=== PATIENT | female | born 1995 | race Caucasian/White ===

== ENCOUNTER 2022-02-26 18:28 | Inpatient (IN) ==
[~2022-02-26 18:28] MED LIST: SUCCINYLCHOLINE CHLORIDE 20 MG/ML 10 ML VIAL IV ONE
[2022-02-26] MEDS ORDERED: LORazepam 1 MG/1 ML SYR IV STA ×3 (18:40→20:19)
[2022-02-26] MEDS ORDERED: SODIUM CHLORIDE 0.9% 1000ML 1,000 ML IV SCH ×2 (18:45→19:15)
[2022-02-26] MEDS ORDERED: SODIUM BICARB 8.4% INJ 50 MEQ/50 ML SYR IV STA (18:53)
--- NOTE | 2022-02-26 18:53 | Emergency Department Note ---
History of Present Illness General Chief complaint: Overdose (Intentional) Stated complaint: OVERDOSE Time Seen by Provider: 02/26/22 18:40 History of Present Illness 18-year-old female presents to the ED unresponsive by EMS. The patient had reportedly consumed approximate 14.5 g of Wellbutrin at around 2 PM today. She did leave a suicide note that stated this. The patient initially was found by police altered. She was talking to police but shortly after they arrived, the patient became unresponsive. The patient did have some seizure-like activity for EMS. They provided 5 mg of IV Versed. The patient was unresponsive upon her arrival and was not able to write any additional history. All history was obtained from EMS. The patient was hypoxic on 15 L of oxygen by EMS. They were bagging her and put nasal airway in. Her breathing improved with this and her oxygen saturation was 98% for short while and upon arrival it was 89% as her breathing was diminished. They were bagging her. They stated that there was nobody around her when she was found. Home Medications Medication Instructions Recorded Confirmed Type bupropion HCl 150 mg 24 hr tablet, 150 mg PO DAILY 02/26/22 02/26/22 History extended release bupropion HCl 300 mg 24 hr tablet, 300 mg PO DAILY 02/26/22 02/26/22 History extended release lamotrigine 100 mg tablet 200 mg PO DAILY 02/26/22 02/26/22 History lamotrigine 150 mg tablet 150 mg PO DAILY 02/26/22 02/26/22 History lurasidone 20 mg tablet (Latuda) 20 mg PO DAILY 02/26/22 02/26/22 History testosterone 50 mg/5 gram (1 %) 0 mg topical UD 02/26/22 02/26/22 History transdermal gel Past Med/Surg History Social History Smoking Status: Unknown if ever smoked Review of Systems A total of 10 systems reviewed and were otherwise negative Physical Exam Vital Signs Vital Signs - 24 hr 02/26/22 18:38 02/26/22 18:51 02/26/22 19:05 Temperature 38.7 C H Temperature Source Rectal Pulse Rate 120 H 124 H Pulse Rate from SpO2 Sensor Respiratory Rate 20 24 Blood Pressure 190/157 H 87/41 L Blood Pressure Mean 168 56 Pulse Oximetry 97 98 Oxygen Delivery Method Mechanical Vent Mechanical Vent Fraction of Inspired Oxygen 100 Sepsis New/Unexplained Change in Mental Status Yes Sepsis Action Taken by Nursing Physician Notified End-Tidal CO2 62 02/26/22 19:00 02/26/22 19:10 02/26/22 19:15 Temperature Temperature Source Pulse Rate 121 H 122 H 121 H Pulse Rate from SpO2 Sensor 123 H 121 H Respiratory Rate 25 H 25 H 25 H Blood Pressure 104/41 L 99/41 L Blood Pressure Mean 62 60 Pulse Oximetry 98 99 97 Oxygen Delivery Method Mechanical Vent Mechanical Vent Fraction of Inspired Oxygen Sepsis New/Unexplained Change in Mental Status Sepsis Action Taken by Nursing End-Tidal CO2 55 44 44 02/26/22 19:20 02/26/22 19:20 02/26/22 19:35 Temperature Temperature Source Pulse Rate 120 H 114 H Pulse Rate from SpO2 Sensor Respiratory Rate 25 H 25 H Blood Pressure 98/42 L 89/46 L Blood Pressure Mean 60 60 Pulse Oximetry 98 Oxygen Delivery Method Mechanical Vent Fraction of Inspired Oxygen Sepsis New/Unexplained Change in Mental Status Sepsis Action Taken by Nursing End-Tidal CO2 41 32 02/26/22 18:40 02/26/22 19:45 02/26/22 20:00 Temperature Temperature Source Pulse Rate 86 112 H 119 H Pulse Rate from SpO2 Sensor 114 H Respiratory Rate 25 H 25 H 25 H Blood Pressure 102/44 L 97/42 L Blood Pressure Mean 63 60 Pulse Oximetry 97 92 Oxygen Delivery Method Mechanical Vent Fraction of Inspired Oxygen 70 Sepsis New/Unexplained Change in Mental Status Sepsis Action Taken by Nursing End-Tidal CO2 57 33 33 02/26/22 20:17 Temperature Temperature Source Pulse Rate 114 H Pulse Rate from SpO2 Sensor 114 H Respiratory Rate 24 Blood Pressure 108/57 L Blood Pressure Mean 74 Pulse Oximetry 96 Oxygen Delivery Method Mechanical Vent Fraction of Inspired Oxygen Sepsis New/Unexplained Change in Mental Status Sepsis Action Taken by Nursing End-Tidal CO2 CONSTITUTIONAL/VITAL SIGNS: Reviewed / noted above. GENERAL: Obese. Agonal spontaneous breathing and shallow. Being bagged by EMS. INTEGUMENTARY: Warm, dry, and Eros. HEAD: Normocephalic. EYES: without scleral icterus or trauma. ENT/OROPHARYNX: clear and moist. RESPIRATORY: Diminished to auscultation bilaterally. Agonal breathing. CARDIOVASCULAR: Regular rate and rhythm. GI/ABDOMEN: Soft and nontender. No organomegaly or pulsatile mass. EXTREMITIES: Warm and well perfused. NEUROLOGICAL: Unresponsive. Not responding to verbal or painful stimulus. PSYCHIATRIC: normal affect. MUSCULOSKELETAL: Normally developed. No muscle tone. No trauma. TRIAGE NURSING DOCUMENTATION REVIEWED. Procedures ABG Interpretation ABG Interpretation 1: ABG Results: 6.8 /. This was shortly after intubation. Ventilation rate was increased to 25. PEEP of 5. Volume of 500. 70% oxygen. Appears to be a respiratory acidosis. Central Line Placement Right IJ: Time Out Performed: Yes Patient Placed on Monitor/Pulse Ox: Yes MD Prep: mask, gown and gloves Central Line Prep: Chlorhexidine scrub Ultrasound Used for Placement: Yes Central Line Lumen Inserted: triple Post Procedure: sutured in place, good blood return, all ports aspirated, flushed, capped and sterile dressing applied Post Procedure X-Ray: tip of catheter in good position and no pneumothorax seen Patient Tolerated Procedure: well and no complications Complications: none Intubation Time out performed: Yes sedative: Etomidate Mg Given: 20 paralytic: Succinylcholine Mg Given: 100 Laryngoscope: fiber optic video scope ET Tube Size: 7 ET Tube Uncuffed: No Tube Secured Depth (cm): 24 Tube Secured Location: teeth Tube Placement Confirmation: visualized tube passing through cords, equal breath sounds bilaterally, no breath sounds over epigastrium and confirmation by capnometry Patient Tolerated Procedure: well and no complications Intubation Complications: none Course Administered Medications Dextrose/Sodium Chloride (D5w And Nss) 1,000 mls @ 250 mls/hr IV .Q4H [facility] Stop: 03/28/22 19:44 Last Admin: 02/26/22 19:46 Dose: 100 mls/hr Documented By: RONI Discontinued Medications Sodium Chloride (Nss 1000ml) 1,000 mls @ 999 mls/hr IV .Q1H1M TONI Stop: 02/26/22 19:45 Last Infusion: 02/26/22 19:31 Dose: 0 mls/hr Documented By: Admin: 02/26/22 18:53 Dose: 999 mls/hr Documented By: MIKE Sodium Chloride (Nss 1000ml) 1,000 mls @ 999 mls/hr IV .Q1H1M TONI Stop: 02/26/22 20:15 Last Infusion: 02/26/22 19:31 Dose: 0 mls/hr Documented By: Admin: 02/26/22 19:03 Dose: 999 mls/hr Documented By: RONI Cefepime HCl (Maxipime) 2,000 mg in 20 mls @ 5 mls/min IV NOW STA; Protocol Stop: 02/26/22 19:18 Last Admin: 02/26/22 19:20 Dose: 5 mls/min Documented By: RONI Sodium Chloride (Nss 1000ml) 1,000 mls @ 999 mls/hr IV .Q1H1M ONE Stop: 02/26/22 20:16 Last Infusion: 02/26/22 20:35 Dose: 0 mls/hr Documented By: Admin: 02/26/22 19:20 Dose: 999 mls/hr Documented By: RONI Levetiracetam 2,000 mg/ Sodium (Chloride) 270 mls @ 999 mls/hr IV NOW STA Stop: 02/26/22 20:25 Last Admin: 02/26/22 20:45 Dose: 999 mls/hr Documented By: RONI Acetaminophen (Ofirmev) 1,000 mg in 100 mls @ 400 mls/hr IV NOW STA Stop: 02/26/22 20:54 Last Admin: 02/26/22 20:52 Dose: 400 mls/hr Documented By: RONI Lorazepam (Lorazepam 1 Mg/1 Ml Syr) 2 mg IV NOW STA; Protocol Stop: 02/26/22 18:41 Last Admin: 02/26/22 19:00 Dose: 2 mg Documented By: RONI Lorazepam (Lorazepam 1 Mg/1 Ml Syr) 2 mg IV NOW STA; Protocol Stop: 02/26/22 20:10 Last Admin: 02/26/22 20:37 Dose: 2 mg Documented By: RONI Lorazepam (Lorazepam 1 Mg/1 Ml Syr) 2 mg IV NOW STA; Protocol Stop: 02/26/22 20:20 Last Admin: 02/26/22 20:44 Dose: Not Given Documented By: RONI Norepinephrine Bitartrate (Norepinephrine/D5w 4 Mg/250 Ml) Confirm Administered Dose 4 mg IV .STK-MED ONE Stop: 02/26/22 19:38 Last Admin: 02/26/22 20:18 Dose: 4 mg Documented By: RONI Sodium Bicarbonate (Sodium Bicarb 8.4% Inj 50 Meq/50 Ml Syr) 100 meq IV NOW STA Stop: 02/26/22 18:54 Last Admin: 02/26/22 19:02 Dose: 100 meq Documented By: RONI Critical Care Time Critical Care Time: Yes Total Critical Care Time: 90 I have personally spent 90 minutes of critical care time in the direct alisa gement of this patient. This includes bedside care, interpretation of diagnostic studies, and testing, discussion with consultants, patient, and family members, and other required patient management activities. This 90 minutes is in excess of all separately billable procedures. Medical Decision Making Differential Diagnosis Differential includes acute cardiac dysrhythmia, AL, CVA, TIA, dehydration, anemia, electrolyte disturbance, seizure, trauma, intracranial bleeding, acute vascular catastrophe, thoracic aortic dissection, PE, abdominal aortic aneurysm rupture, infection, hypoglycemia, overdose, trauma, seizure. Medical Records Attestation: I reviewed the patient's medical records. Home Medications Current Medication List: was personally reviewed by me Laboratory Data Attestation: I reviewed the patient's lab results. Result diagrams: 02/26/22 18:39 02/26/22 18:39 Lab Results 02/26/22 02/26/22 02/26/22 Range/Units 18:39 18:39 18:39 WBC (4.8-10.8) K/ul RBC (3.93-5.22) M/uL Hgb (12.0-16.0) g/dl Hct (34.1-44.9) % MCV (80.0-100.0) fL MCH (25.0-34.0) pg MCHC (32.0-36.0) g/dL RDW Std Deviation (36.4-46.3) fL RDW Coeff of Ruth Ann (11.5-14.5) % Plt Count (130-400) K/uL MPV (9.4-12.3) fL Immature Gran % (Auto) % Neut % (Auto) % Lymph % (Auto) % [place] % (Auto) % Eos % (Auto) % Baso % (Auto) % Neut # (Auto) (1.4-6.5) K/uL Lymph # (Auto) (1.2-3.4) K/uL [place] # (Auto) (0.24-0.82) K/uL Eos # (Auto) (0-0.50) K/uL Baso # (Auto) (0-0.2) K/uL Immature Gran # (Auto) (0.00-0.02) K/uL PT 10.8 (9.0-12.0) Seconds INR 1.0 (0.9-1.1) Sodium 141 (136-145) mmol/L Potassium 4.6 (3.5-5.1) mmol/L Chloride 103 (98-107) mmol/L Carbon Dioxide 17 L (21-32) mmol/L Anion Gap 21 H (3-11) BUN 16 (6-23) mg/dl Creatinine 1.48 H (0.6-1.2) mg/dl Est Cr Clr Drug Dosing Not Reportable Est GFR ( Amer) 55.3 ml/min Est GFR (Non-Af Amer) 47.7 ml/min BUN/Creatinine Ratio 10.8 (10-20) Glucose 69 L (70-99(Fasting)) mg/dl POC Glucose (70-99) mg/dl Lactate (0.4-2.0) mmol/L Calcium 9.9 (8.5-10.1) mg/dl Magnesium 3.2 H (1.7-2.4) mg/dl Total Bilirubin 0.3 (0.2-1.0) mg/dl AST 13 (13-39) U/L ALT 13 (7-52) U/L Alkaline Phosphatase 86 (34-104) U/L Total Creatine Kinase 102 (26-192) U/L Troponin I High Sens 4.7 (0-14) pg/ml Total Protein 7.6 (6.0-8.3) gm/dl Albumin 4.5 (3.4-5.0) gm/dl Globulin 3.1 (2.5-4.0) gm/dl Albumin/Globulin Ratio 1.5 (0.9-2) Lipase 35 (11-82) U/L TSH 15.260 H (0.300-4.500) uIu/ml Free T4 0.66 (0.61-1.60) ng/dl Urine Color Urine Appearance (Clear) Urine pH (4.5-7.5) Ur Specific Andrew (1.000-1.030) Urine Protein (Negative) Urine Glucose (UA) (Negative) Urine Ketones (Negative) Urine Blood (Negative) Urine Nitrite (Negative) Urine Bilirubin (Negative) Urine Urobilinogen (Negative) Ur Leukocyte Esterase (Negative) Urine WBC (Auto) (0-5) /hpf Urine RBC (Auto) (0-4) /hpf U Hyaline Cast (Auto) (0-5) /lpf U Epithel Cells (Auto) (0-5) /lpf Urine Bacteria (Auto) (Negative) Ur Renal Epithelial Cell Urine Test (Negative) Salicylates (3.0-30) mg/dl Urine Opiates Screen (Neg) Ur Methadone, Qual (Neg) Acetaminophen (10-30) ug/ml Urine Barbiturates (Neg) Ur Phencyclidine (PCP) (Neg) U Amphetamin/Meth Scrn (Neg) MDMA (Ecstasy) Screen (Neg) U Benzodiazepines Scrn (Neg) Ur Cocaine Metabolite (Neg) U Marijuana (THC) Screen (Neg) Ethyl Alcohol mg/dL (<10.0) mg/dl Adenovirus (PCR) (NotDetected) B. pertussis DNA (PCR) (NotDetected) B.parapertussis DNA PCR (NotDetected) C. pneumoniae DNA (PCR) (NotDetected) Coronavirus OC43 (PCR) (NotDetected) Coronavirus HKU1 (PCR) (NotDetected) Coronavirus 229E (PCR) (NotDetected) SARS-CoV-2 (PCR) (NotDetected) Coronavirus NL63 (PCR) (NotDetected) Human Metapneumovir PCR (NotDetected) Influenza Type A (PCR) (NotDetected) Influenza Type B (PCR) (NotDetected) M. pneumoniae (PCR) (NotDetected) Parainfluenza 1 (PCR) (NotDetected) Parainfluenza 2 (PCR) (NotDetected) Parainfluenza 3 (PCR) (NotDetected) Parainfluenza 4 (PCR) (NotDetected) RSV (PCR) (NotDetected) Entero/Rhino (PCR) (NotDetected) SARS-CoV-2, RNA, NAAT (NEGATIVE) 02/26/22 02/26/22 02/26/22 Range/Units 18:39 18:39 18:39 WBC 29.20 H (4.8-10.8) K/ul RBC 4.22 (3.93-5.22) M/uL Hgb 13.5 (12.0-16.0) g/dl Hct 43.0 (34.1-44.9) % MCV 101.9 H (80.0-100.0) fL MCH 32.0 (25.0-34.0) pg MCHC 31.4 L (32.0-36.0) g/dL RDW Std Deviation 45.7 (36.4-46.3) fL RDW Coeff of Ruth Ann 12.1 (11.5-14.5) % Plt Count 377 (130-400) K/uL MPV 10.1 (9.4-12.3) fL Immature Gran % (Auto) 7.1 % Neut % (Auto) 50.1 % Lymph % (Auto) 35.1 % [place] % (Auto) 6.6 % Eos % (Auto) 0.6 % Baso % (Auto) 0.5 % Neut # (Auto) 14.62 H (1.4-6.5) K/uL Lymph # (Auto) 10.25 H (1.2-3.4) K/uL [place] # (Auto) 1.94 H (0.24-0.82) K/uL Eos # (Auto) 0.17 (0-0.50) K/uL Baso # (Auto) 0.14 (0-0.2) K/uL Immature Gran # (Auto) 2.08 H (0.00-0.02) K/uL PT (9.0-12.0) Seconds INR (0.9-1.1) Sodium (136-145) mmol/L Potassium (3.5-5.1) mmol/L Chloride (98-107) mmol/L Carbon Dioxide (21-32) mmol/L Anion Gap (3-11) BUN (6-23) mg/dl Creatinine (0.6-1.2) mg/dl Est Cr Clr Drug Dosing Est GFR ( Amer) ml/min Est GFR (Non-Af Amer) ml/min BUN/Creatinine Ratio (10-20) Glucose (70-99(Fasting)) mg/dl POC Glucose (70-99) mg/dl Lactate (0.4-2.0) mmol/L Calcium (8.5-10.1) mg/dl Magnesium (1.7-2.4) mg/dl Total Bilirubin (0.2-1.0) mg/dl AST (13-39) U/L ALT (7-52) U/L Alkaline Phosphatase (34-104) U/L Total Creatine Kinase (26-192) U/L Troponin I High Sens (0-14) pg/ml Total Protein (6.0-8.3) gm/dl Albumin (3.4-5.0) gm/dl Globulin (2.5-4.0) gm/dl Albumin/Globulin Ratio (0.9-2) Lipase (11-82) U/L TSH (0.300-4.500) uIu/ml Free T4 (0.61-1.60) ng/dl Urine Color Urine Appearance (Clear) Urine pH (4.5-7.5) Ur Specific Andrew (1.000-1.030) Urine Protein (Negative) Urine Glucose (UA) (Negative) Urine Ketones (Negative) Urine Blood (Negative) Urine Nitrite (Negative) Urine Bilirubin (Negative) Urine Urobilinogen (Negative) Ur Leukocyte Esterase (Negative) Urine WBC (Auto) (0-5) /hpf Urine RBC (Auto) (0-4) /hpf U Hyaline Cast (Auto) (0-5) /lpf U Epithel Cells (Auto) (0-5) /lpf Urine Bacteria (Auto) (Negative) Ur Renal Epithelial Cell Urine Test (Negative) Salicylates < 3.0 L (3.0-30) mg/dl Urine Opiates Screen (Neg) Ur Methadone, Qual (Neg) Acetaminophen < 3 L (10-30) ug/ml Urine Barbiturates (Neg) Ur Phencyclidine (PCP) (Neg) U Amphetamin/Meth Scrn (Neg) MDMA (Ecstasy) Screen (Neg) U Benzodiazepines Scrn (Neg) Ur Cocaine Metabolite (Neg) U Marijuana (THC) Screen (Neg) Ethyl Alcohol mg/dL < 10.0 (<10.0) mg/dl Adenovirus (PCR) (NotDetected) B. pertussis DNA (PCR) (NotDetected) B.parapertussis DNA PCR (NotDetected) C. pneumoniae DNA (PCR) (NotDetected) Coronavirus OC43 (PCR) (NotDetected) Coronavirus HKU1 (PCR) (NotDetected) Coronavirus 229E (PCR) (NotDetected) SARS-CoV-2 (PCR) (NotDetected) Coronavirus NL63 (PCR) (NotDetected) Human Metapneumovir PCR (NotDetected) Influenza Type A (PCR) (NotDetected) Influenza Type B (PCR) (NotDetected) M. pneumoniae (PCR) (NotDetected) Parainfluenza 1 (PCR) (NotDetected) Parainfluenza 2 (PCR) (NotDetected) Parainfluenza 3 (PCR) (NotDetected) Parainfluenza 4 (PCR) (NotDetected) RSV (PCR) (NotDetected) Entero/Rhino (PCR) (NotDetected) SARS-CoV-2, RNA, NAAT (NEGATIVE) 02/26/22 02/26/22 02/26/22 Range/Units 18:39 18:40 18:40 WBC (4.8-10.8) K/ul RBC (3.93-5.22) M/uL Hgb (12.0-16.0) g/dl Hct (34.1-44.9) % MCV (80.0-100.0) fL MCH (25.0-34.0) pg MCHC (32.0-36.0) g/dL RDW Std Deviation (36.4-46.3) fL RDW Coeff of Ruth Ann (11.5-14.5) % Plt Count (130-400) K/uL MPV (9.4-12.3) fL Immature Gran % (Auto) % Neut % (Auto) % Lymph % (Auto) % [place] % (Auto) % Eos % (Auto) % Baso % (Auto) % Neut # (Auto) (1.4-6.5) K/uL Lymph # (Auto) (1.2-3.4) K/uL [place] # (Auto) (0.24-0.82) K/uL Eos # (Auto) (0-0.50) K/uL Baso # (Auto) (0-0.2) K/uL Immature Gran # (Auto) (0.00-0.02) K/uL PT (9.0-12.0) Seconds INR (0.9-1.1) Sodium (136-145) mmol/L Potassium (3.5-5.1) mmol/L Chloride (98-107) mmol/L Carbon Dioxide (21-32) mmol/L Anion Gap (3-11) BUN (6-23) mg/dl Creatinine (0.6-1.2) mg/dl Est Cr Clr Drug Dosing Est GFR ( Amer) ml/min Est GFR (Non-Af Amer) ml/min BUN/Creatinine Ratio (10-20) Glucose (70-99(Fasting)) mg/dl POC Glucose (70-99) mg/dl Lactate 17.9 H* (0.4-2.0) mmol/L Calcium (8.5-10.1) mg/dl Magnesium (1.7-2.4) mg/dl Total Bilirubin (0.2-1.0) mg/dl AST (13-39) U/L ALT (7-52) U/L Alkaline Phosphatase (34-104) U/L Total Creatine Kinase (26-192) U/L Troponin I High Sens (0-14) pg/ml Total Protein (6.0-8.3) gm/dl Albumin (3.4-5.0) gm/dl Globulin (2.5-4.0) gm/dl Albumin/Globulin Ratio (0.9-2) Lipase (11-82) U/L TSH (0.300-4.500) uIu/ml Free T4 (0.61-1.60) ng/dl Urine Color Yellow Urine Appearance Clear (Clear) Urine pH 5.0 (4.5-7.5) Ur Specific Andrew 1.013 (1.000-1.030) Urine Protein Negative (Negative) Urine Glucose (UA) Negative (Negative) Urine Ketones 1+ H (Negative) Urine Blood Trace H (Negative) Urine Nitrite Negative (Negative) Urine Bilirubin Negative (Negative) Urine Urobilinogen Negative (Negative) Ur Leukocyte Esterase Negative (Negative) Urine WBC (Auto) 1-5 (0-5) /hpf Urine RBC (Auto) 0-4 (0-4) /hpf U Hyaline Cast (Auto) 5-10 H (0-5) /lpf U Epithel Cells (Auto) >30 H (0-5) /lpf Urine Bacteria (Auto) 1+ H (Negative) Ur Renal Epithelial Cell Not Reportable Urine Test (Negative) Salicylates (3.0-30) mg/dl Urine Opiates Screen Neg (Neg) Ur Methadone, Qual Neg (Neg) Acetaminophen (10-30) ug/ml Urine Barbiturates Neg (Neg) Ur Phencyclidine (PCP) Neg (Neg) U Amphetamin/Meth Scrn Pos H (Neg) MDMA (Ecstasy) Screen Pos H (Neg) U Benzodiazepines Scrn Neg (Neg) Ur Cocaine Metabolite Neg (Neg) U Marijuana (THC) Screen Neg (Neg) Ethyl Alcohol mg/dL (<10.0) mg/dl Adenovirus (PCR) (NotDetected) B. pertussis DNA (PCR) (NotDetected) B.parapertussis DNA PCR (NotDetected) C. pneumoniae DNA (PCR) (NotDetected) Coronavirus OC43 (PCR) (NotDetected) Coronavirus HKU1 (PCR) (NotDetected) Coronavirus 229E (PCR) (NotDetected) SARS-CoV-2 (PCR) (NotDetected) Coronavirus NL63 (PCR) (NotDetected) Human Metapneumovir PCR (NotDetected) Influenza Type A (PCR) (NotDetected) Influenza Type B (PCR) (NotDetected) M. pneumoniae (PCR) (NotDetected) Parainfluenza 1 (PCR) (NotDetected) Parainfluenza 2 (PCR) (NotDetected) Parainfluenza 3 (PCR) (NotDetected) Parainfluenza 4 (PCR) (NotDetected) RSV (PCR) (NotDetected) Entero/Rhino (PCR) (NotDetected) SARS-CoV-2, RNA, NAAT (NEGATIVE) 02/26/22 02/26/22 02/26/22 Range/Units 18:40 19:06 19:21 WBC (4.8-10.8) K/ul RBC (3.93-5.22) M/uL Hgb (12.0-16.0) g/dl Hct (34.1-44.9) % MCV (80.0-100.0) fL MCH (25.0-34.0) pg MCHC (32.0-36.0) g/dL RDW Std Deviation (36.4-46.3) fL RDW Coeff of Ruth Ann (11.5-14.5) % Plt Count (130-400) K/uL MPV (9.4-12.3) fL Immature Gran % (Auto) % Neut % (Auto) % Lymph % (Auto) % [place] % (Auto) % Eos % (Auto) % Baso % (Auto) % Neut # (Auto) (1.4-6.5) K/uL Lymph # (Auto) (1.2-3.4) K/uL [place] # (Auto) (0.24-0.82) K/uL Eos # (Auto) (0-0.50) K/uL Baso # (Auto) (0-0.2) K/uL Immature Gran # (Auto) (0.00-0.02) K/uL PT (9.0-12.0) Seconds INR (0.9-1.1) Sodium (136-145) mmol/L Potassium (3.5-5.1) mmol/L Chloride (98-107) mmol/L Carbon Dioxide (21-32) mmol/L Anion Gap (3-11) BUN (6-23) mg/dl Creatinine (0.6-1.2) mg/dl Est Cr Clr Drug Dosing Est GFR ( Amer) ml/min Est GFR (Non-Af Amer) ml/min BUN/Creatinine Ratio (10-20) Glucose (70-99(Fasting)) mg/dl POC Glucose (70-99) mg/dl Lactate (0.4-2.0) mmol/L Calcium (8.5-10.1) mg/dl Magnesium (1.7-2.4) mg/dl Total Bilirubin (0.2-1.0) mg/dl AST (13-39) U/L ALT (7-52) U/L Alkaline Phosphatase (34-104) U/L Total Creatine Kinase (26-192) U/L Troponin I High Sens (0-14) pg/ml Total Protein (6.0-8.3) gm/dl Albumin (3.4-5.0) gm/dl Globulin (2.5-4.0) gm/dl Albumin/Globulin Ratio (0.9-2) Lipase (11-82) U/L TSH (0.300-4.500) uIu/ml Free T4 (0.61-1.60) ng/dl Urine Color Urine Appearance (Clear) Urine pH (4.5-7.5) Ur Specific Andrew (1.000-1.030) Urine Protein (Negative) Urine Glucose (UA) (Negative) Urine Ketones (Negative) Urine Blood (Negative) Urine Nitrite (Negative) Urine Bilirubin (Negative) Urine Urobilinogen (Negative) Ur Leukocyte Esterase (Negative) Urine WBC (Auto) (0-5) /hpf Urine RBC (Auto) (0-4) /hpf U Hyaline Cast (Auto) (0-5) /lpf U Epithel Cells (Auto) (0-5) /lpf Urine Bacteria (Auto) (Negative) Ur Renal Epithelial Cell Urine Test Negative (Negative) Salicylates (3.0-30) mg/dl Urine Opiates Screen (Neg) Ur Methadone, Qual (Neg) Acetaminophen (10-30) ug/ml Urine Barbiturates (Neg) Ur Phencyclidine (PCP) (Neg) U Amphetamin/Meth Scrn (Neg) MDMA (Ecstasy) Screen (Neg) U Benzodiazepines Scrn (Neg) Ur Cocaine Metabolite (Neg) U Marijuana (THC) Screen (Neg) Ethyl Alcohol mg/dL (<10.0) mg/dl Adenovirus (PCR) Not Detected (NotDetected) B. pertussis DNA (PCR) Not Detected (NotDetected) B.parapertussis DNA PCR Not Detected (NotDetected) C. pneumoniae DNA (PCR) Not Detected (NotDetected) Coronavirus OC43 (PCR) Not Detected (NotDetected) Coronavirus HKU1 (PCR) Not Detected (NotDetected) Coronavirus 229E (PCR) Not Detected (NotDetected) SARS-CoV-2 (PCR) Not Detected (NotDetected) Coronavirus NL63 (PCR) Not Detected (NotDetected) Human Metapneumovir PCR Not Detected (NotDetected) Influenza Type A (PCR) Not Detected (NotDetected) Influenza Type B (PCR) Not Detected (NotDetected) M. pneumoniae (PCR) Not Detected (NotDetected) Parainfluenza 1 (PCR) Not Detected (NotDetected) Parainfluenza 2 (PCR) Not Detected (NotDetected) Parainfluenza 3 (PCR) Not Detected (NotDetected) Parainfluenza 4 (PCR) Not Detected (NotDetected) RSV (PCR) Not Detected (NotDetected) Entero/Rhino (PCR) Not Detected (NotDetected) SARS-CoV-2, RNA, NAAT NEGATIVE (NEGATIVE) 02/26/22 02/26/22 Range/Units 19:41 20:21 WBC (4.8-10.8) K/ul RBC (3.93-5.22) M/uL Hgb (12.0-16.0) g/dl Hct (34.1-44.9) % MCV (80.0-100.0) fL MCH (25.0-34.0) pg MCHC (32.0-36.0) g/dL RDW Std Deviation (36.4-46.3) fL RDW Coeff of Ruth Ann (11.5-14.5) % Plt Count (130-400) K/uL MPV (9.4-12.3) fL Immature Gran % (Auto) % Neut % (Auto) % Lymph % (Auto) % [place] % (Auto) % Eos % (Auto) % Baso % (Auto) % Neut # (Auto) (1.4-6.5) K/uL Lymph # (Auto) (1.2-3.4) K/uL [place] # (Auto) (0.24-0.82) K/uL Eos # (Auto) (0-0.50) K/uL Baso # (Auto) (0-0.2) K/uL Immature Gran # (Auto) (0.00-0.02) K/uL PT (9.0-12.0) Seconds INR (0.9-1.1) Sodium (136-145) mmol/L Potassium (3.5-5.1) mmol/L Chloride (98-107) mmol/L Carbon Dioxide (21-32) mmol/L Anion Gap (3-11) BUN (6-23) mg/dl Creatinine (0.6-1.2) mg/dl Est Cr Clr Drug Dosing Est GFR ( Amer) ml/min Est GFR (Non-Af Amer) ml/min BUN/Creatinine Ratio (10-20) Glucose (70-99(Fasting)) mg/dl POC Glucose 63 L* 95 (70-99) mg/dl Lactate (0.4-2.0) mmol/L Calcium (8.5-10.1) mg/dl Magnesium (1.7-2.4) mg/dl Total Bilirubin (0.2-1.0) mg/dl AST (13-39) U/L ALT (7-52) U/L Alkaline Phosphatase (34-104) U/L Total Creatine Kinase (26-192) U/L Troponin I High Sens (0-14) pg/ml Total Protein (6.0-8.3) gm/dl Albumin (3.4-5.0) gm/dl Globulin (2.5-4.0) gm/dl Albumin/Globulin Ratio (0.9-2) Lipase (11-82) U/L TSH (0.300-4.500) uIu/ml Free T4 (0.61-1.60) ng/dl Urine Color Urine Appearance (Clear) Urine pH (4.5-7.5) Ur Specific Andrew (1.000-1.030) Urine Protein (Negative) Urine Glucose (UA) (Negative) Urine Ketones (Negative) Urine Blood (Negative) Urine Nitrite (Negative) Urine Bilirubin (Negative) Urine Urobilinogen (Negative) Ur Leukocyte Esterase (Negative) Urine WBC (Auto) (0-5) /hpf Urine RBC (Auto) (0-4) /hpf U Hyaline Cast (Auto) (0-5) /lpf U Epithel Cells (Auto) (0-5) /lpf Urine Bacteria (Auto) (Negative) Ur Renal Epithelial Cell Urine Test (Negative) Salicylates (3.0-30) mg/dl Urine Opiates Screen (Neg) Ur Methadone, Qual (Neg) Acetaminophen (10-30) ug/ml Urine Barbiturates (Neg) Ur Phencyclidine (PCP) (Neg) U Amphetamin/Meth Scrn (Neg) MDMA (Ecstasy) Screen (Neg) U Benzodiazepines Scrn (Neg) Ur Cocaine Metabolite (Neg) U Marijuana (THC) Screen (Neg) Ethyl Alcohol mg/dL (<10.0) mg/dl Adenovirus (PCR) (NotDetected) B. pertussis DNA (PCR) (NotDetected) B.parapertussis DNA PCR (NotDetected) C. pneumoniae DNA (PCR) (NotDetected) Coronavirus OC43 (PCR) (NotDetected) Coronavirus HKU1 (PCR) (NotDetected) Coronavirus 229E (PCR) (NotDetected) SARS-CoV-2 (PCR) (NotDetected) Coronavirus NL63 (PCR) (NotDetected) Human Metapneumovir PCR (NotDetected) Influenza Type A (PCR) (NotDetected) Influenza Type B (PCR) (NotDetected) M. pneumoniae (PCR) (NotDetected) Parainfluenza 1 (PCR) (NotDetected) Parainfluenza 2 (PCR) (NotDetected) Parainfluenza 3 (PCR) (NotDetected) Parainfluenza 4 (PCR) (NotDetected) RSV (PCR) (NotDetected) Entero/Rhino (PCR) (NotDetected) SARS-CoV-2, RNA, NAAT (NEGATIVE) Imaging Data Radiologist's Impression: Head CT 02/26/22 18:40 CT OF THE HEAD WITHOUT CONTRAST CLINICAL HISTORY: od, unresponsive COMPARISON STUDY: No previous studies for comparison. CT DOSE: 884.08 mGy.cm TECHNIQUE: Helical axial images of the head were obtained without IV contrast. Automated exposure control was utilized for the study. A dose lowering technique was utilized adhering to the principles of ALARA. FINDINGS: No acute intracranial hemorrhage, midline shift or mass effect is present. The ventricular system is unremarkable. The basal cisterns are patent. No extra-axial collections are present. There are no findings to suggest acute dural sinus thrombosis or acute territorial infarct. No significant calvarial abnormalities are present. Visualized portions of the sinuses and mastoid air cells are clear. Secretions within the nasopharynx are likely related to int ubation. IMPRESSION: No acute intracranial findings. ACT 112: Negative or not required by law. Electronically signed by: Eric Figueroa M.D. 02/26/2022 8:25 PM Chest X-Ray 02/26/22 18:41 SUPINE PORTABLE AP CHEST RADIOGRAPH CLINICAL HISTORY: od, s/p ETT COMPARISON STUDY: No previous studies for comparison. FINDINGS: The tip of the endotracheal tube is 1.4 cm above the honorio. Tip of nasogastric tube is at least within the body of the stomach. No pneumothorax is identified on supine exam. No pleural effusion is present. Pulmonary vascularity is normal. Cardiomediastinal silhouette is unremarkable. Subtle interstitial thickening and possible patchy airspace opacities are present. IMPRESSION: 1. Tip of endotracheal tube 1.4 cm above the honorio. 2. Subtle interstitial thickening and possible patchy bilateral airspace opacities. An infectious process or aspiration cannot be excluded. ACT 112: Negative or not required by law. Electronically signed by: Eric Figueroa M.D. 02/26/2022 7:05 PM Chest X-Ray 02/26/22 19:45 SUPINE PORTABLE AP CHEST RADIOGRAPH CLINICAL HISTORY: central line placement COMPARISON STUDY: Chest radiograph performed earlier today. FINDINGS: Tip of endotracheal tube is 2.8 cm above the honorio. Tip of nasogastric tube is within the gastric antrum. There is an equivocal trace right apical pneumothorax. Tip of right internal jugular central line projects over the cavoatrial junction. This is probably artifactual. Interstitial thickening and bilateral opacities have increased. Cardiac size is normal. IMPRESSION: 1. Equivocal trace right apical pneumothorax. This is probably artifactual however a short-term follow-up upright chest radiograph is recommended. 2. Increase in bilateral airspace opacities and interstitial thickening. The findings could reflect pneumonia or aspiration pneumonitis. Although less likely, pulmonary edema could appear similar. ACT 112: Negative or not required by law. Electronically signed by: Eric Figueroa M.D. 02/26/2022 8:20 PM ECG Data Attestation: I personally reviewed and interpreted this ECG as follows: Additional Comments: Twelve-lead EKG: Per my interpretation shows a sinus tach at a rate of 111. No ST elevation. No PVCs. QRS is 108 and QTC is 456. MDM Narrative 26-year-old female presents with an overdose of Wellbutrin of 14.5 g at around 2 PM. Unresponsive on arrival. Was hypoxic and required intubation shortly after arrival. The patient was intubated shortly after she arrived because of hypoxia despite being ventilated with a BVM and nasal airway and 100% oxygen. A chest x-ray suggests bilateral pneumonia. She is febrile with temperature of 38.7. She was tachycardic. She was also hypotensive. She was hydrated with 3 L of normal saline IV. She was given a dose of IV cefepime. She was also started on D5 normal saline at 100 cc/h for a low blood sugar in the 60s. She was given IV lorazepam shortly after intubation to help with sedation. She did have a seizure during her CT scan which occurred later during her ED stay. She was given additional 2 mg of IV lorazepam. She was also started on midazolam drip. A right IJ central line was placed. This was under ultrasound guidance. Although the chest x-ray per radiologist suggests a tiny apical pneumothorax is a possibility, this is not likely as the needle clearly went into the vessel and was relatively superficial, not even near the lung. Per poison control they recommended being liberal with benzos. They recommended QRS greater than 120 to treat with sodium bicarb. At the QTC was greater than 500 treat with 2 g of mag. Keep magnesium above 2 and the potassium between 4 and 5. The patient did receive some IV bicarbonate when she initially arrived as her ABG showed a pH of 6.87 with a PCO2 of 74 and a PaO2 of 232 shortly after intubation. The ventila tor rate was increased to 25 and a repeat ABG later in the course of her ED stay was pH of 7.32, PCO2 of 37 and a PaO2 of 91. Lactic acid was elevated 17.9. Talk screen was positive for MDMA and amphetamines. Tylenol, aspirin and alcohol were all negative. Magnesium was 3.2. CT scan of brain did not show acute process. I did speak with the hospitalist as well as intensive serviceSalvador, who will be taking care of the patient in the ICU. The patient did not receive pressors in the ED as her blood pressure was 103/50 3 liters of normal saline IV. Impression & Plan Drug overdose, Aspiration pneumonia of both lower lobes, Respiratory failure, Acidosis, lactic, Acute respiratory acidosis, Acute hypotension Discharge Plan Visit Data Chief Complaint: Overdose (Intentional) Stated Complaint: OVERDOSE ED Provider: Ariel Montemayor Discharge Problem: Drug overdose, Aspiration pneumonia of both lower lobes, Respiratory failure, Acidosis, lactic, Acute respiratory acidosis, Acute hypotension Patient Disposition: Being Evaluated by Hospitalist Forms Stand Alone Forms: [facility], Suicide Prevention Resources Referrals Referrals: PCP,NO [Primary Care Provider] -
[2022-02-26 18:58] LABS: Hemoglobin 13.5 g/dl (12.0-16.0); Mean Corpuscular Hgb Conc 31.4 g/dL (32.0-36.0); Mean Corpuscular Volume 101.9 fL (80.0-100.0); Mean Platelet Volume 10.1 fL (9.4-12.3); Platelet Count 377 K/uL (130-400); RDW Coefficient of Variation 12.1 % (11.5-14.5); RDW Standard Deviation 45.7 fL (36.4-46.3); Red Blood Count 4.22 M/uL (3.93-5.22)
[2022-02-26 19:07] LABS: Appearance Urine Clear (Clear); Bilirubin Urine Negative (Negative); Blood Urine Trace (Negative); Color Urine Yellow; Epithelial Cell Urine Auto >30 /lpf (0-5); Glucose Urine UA Negative (Negative); Ketones Urine 1+ (Negative); Leukocyte Esterase Urine Negative (Negative); Nitrite Urine Negative (Negative); Protein Urine Negative (Negative); RBC Urine Automated 0-4 /hpf (0-4); Specific Gravity Urine 1.013 (1.000-1.030); Urobilinogen Urine Negative (Negative)
--- NOTE | 2022-02-26 19:08 | XRay Report ---
SUPINE PORTABLE AP CHEST RADIOGRAPH CLINICAL HISTORY: od, s/p ETT COMPARISON STUDY: No previous studies for comparison. FINDINGS: The tip of the endotracheal tube is 1.4 cm above the honorio. Tip of nasogastric tube is at least within the body of the stomach. No pneumothorax is identified on supine exam. No pleural effusi on is present. Pulmonary vascularity is normal. Cardiomediastinal silhouette is unremarkable. Subtle interstitial thickening and possible patchy airspace opacities are present. IMPRESSION: 1. Tip of endotracheal tube 1.4 cm above the honorio. 2. Subtle interstitial thickening and possible patchy bilateral airspace opacities. An infectious pro cess or aspiration cannot be excluded. ACT 112: Negative or not required by law. Electronically signed by: Eric Figueroa M.D. 02/26/2022 7:05 PM
[2022-02-26] MEDS ORDERED: CEFEPIME 2,000 MG/20 ML VIAL IV STA (19:15)
[2022-02-26] MEDS ORDERED: SODIUM CHLORIDE 0.9% 1000ML 1,000 ML IV ONE (19:16)
[2022-02-26 19:18] LABS: Prothrombin Time 10.8 Seconds (9.0-12.0)
[2022-02-26 19:19] LABS: Alanine Aminotransferase 13 U/L (7-52); Albumin Globulin Ratio 1.5 (0.9-2); Albumin Level 4.5 gm/dl (3.4-5.0); Alkaline Phosphatase 86 U/L (34-104); Anion Gap 21 (3-11); Aspartate Aminotransferase 13 U/L (13-39); BUN Creatinine Ratio 10.8 (10-20); Bilirubin,Total 0.3 mg/dl (0.2-1.0); Blood Urea Nitrogen 16 mg/dl (6-23); Calcium 9.9 mg/dl (8.5-10.1); Carbon Dioxide 17 mmol/L (21-32); Chloride 103 mmol/L (98-107); Creatine Kinase 102 U/L (26-192); Est GFR (African American) 55.3 ml/min; Est GFR (Non-African American) 47.7 ml/min; Globulin 3.1 gm/dl (2.5-4.0); Glucose 69 mg/dl (70-99(Fasting)); Lipase 35 U/L (11-82); Magnesium 3.2 mg/dl (1.7-2.4); Potassium 4.6 mmol/L (3.5-5.1); Sodium 141 mmol/L (136-145); Total Protein 7.6 gm/dl (6.0-8.3)
[2022-02-26 19:20] LABS: Basophils # (auto) 0.14 K/uL (0-0.2); Basophils % (auto) 0.5 %; Eosinophils # (auto) 0.17 K/uL (0-0.50); Eosinophils % (auto) 0.6 %; Immature Granulocytes # (auto) 2.08 K/uL (0.00-0.02); Immature Granulocytes % (auto) 7.1 %; Lymphocytes # (auto) 10.25 K/uL (1.2-3.4); Lymphocytes % (auto) 35.1 %; Monocytes # (auto) 1.94 K/uL (0.24-0.82); Monocytes % (auto) 6.6 %; Neutrophils # (auto) 14.62 K/uL (1.4-6.5); Neutrophils % (auto) 50.1 %
[2022-02-26 19:22] LABS: Acetaminophen < 3 ug/ml (10-30); Salicylate < 3.0 mg/dl (3.0-30)
[2022-02-26 19:25] LABS: Troponin I High Sensitivity 4.7 pg/ml (0-14)
[2022-02-26 19:28] LABS: Bacteria Urine Automated 1+ (Negative)
[2022-02-26] MEDS ORDERED: NOREPINEPHRINE/D5W 4 MG/250 ML IV ONE (19:37)
[2022-02-26 19:39] LABS: Thyroid Stimulating Hormone 15.26 uIu/ml (0.300-4.500)
[2022-02-26] MEDS ORDERED: D5W AND NSS 1,000 ML IV SCH (19:45)
[2022-02-26 19:59] LABS: Pregnancy Test, Urine Negative (Negative)
[2022-02-26 20:07] LABS: Amphetamines+Metham, Urine Pos (Neg); Barbiturates, Urine Neg (Neg); Benzodiazepine, Urine Neg (Neg); Cocaine, Urine Neg (Neg); MDMA (Ecstacy), Urine Pos (Neg); Methadone, Urine Neg (Neg); Opiate, Urine Neg (Neg); Phencyclidine, Urine Neg (Neg)
[2022-02-26 20:12] LABS: T4 Free Thyroxine 0.66 ng/dl (0.61-1.60)
[2022-02-26 20:20] LABS: Adenovirus PCR Not Detected (NotDetected); Bordetella parapertussis PCR Not Detected (NotDetected); Bordetella pertussis PCR Not Detected (NotDetected); Chlamydia pneumoniae PCR Not Detected (NotDetected); Coronavirus 229E PCR Not Detected (NotDetected); Coronavirus CoV-2 (COVID19)PCR Not Detected (NotDetected); Coronavirus HKU1 PCR Not Detected (NotDetected); Coronavirus NL63 PCR Not Detected (NotDetected); Coronavirus OC43PCR Not Detected (NotDetected); Human Metapneumovirus PCR Not Detected (NotDetected); Influenza A PCR Not Detected (NotDetected); Influenza B PCR Not Detected (NotDetected); Mycoplasma pneumoniae PCR Not Detected (NotDetected); Parainfluenza Virus 1 PCR Not Detected (NotDetected); Parainfluenza Virus 2 PCR Not Detected (NotDetected); Parainfluenza Virus 3 PCR Not Detected (NotDetected); Parainfluenza Virus 4 PCR Not Detected (NotDetected); Respiratory Syncytial VirusPCR Not Detected (NotDetected); Rhinovirus/Enterovirus PCR Not Detected (NotDetected)
--- NOTE | 2022-02-26 20:22 | XRay Report ---
SUPINE PORTABLE AP CHEST RADIOGRAPH CLINICAL HISTORY: central line placement COMPARISON STUDY: Chest radiograph performed earlier today. FINDINGS: Tip of endotracheal tube is 2.8 cm above the honorio. Tip of nasogastric tube is within the gastric antrum. There is an equivocal trace right apical pneumothorax. Tip of right internal jugular central line projects over the cavoatrial junction. This is probably artifactual. Interstitial thicke jossy and bilateral opacities have increased. Cardiac size is normal. IMPRESSION: 1. Equivocal trace right apical pneumothorax. This is probably artifactual however a short-term follo w-up upright chest radiograph is recommended. 2. Increase in bilateral airspace opacities and interstitial thickening. The findings could reflect p neumonia or aspiration pneumonitis. Although less likely, pulmonary edema could appear similar. ACT 112: Negative or not required by law. Electronically signed by: Eric Figueroa M.D. 02/26/2022 8:20 PM
--- NOTE | 2022-02-26 20:26 | CT Scan Report ---
CT OF THE HEAD WITHOUT CONTRAST CLINICAL HISTORY: od, unresponsive COMPARISON STUDY: No previous studies for comparison. CT DOSE: 884.08 mGy.cm TECHNIQUE: Helical axial images of the head were obtained without IV contrast. Automated exposure con trol was utilized for the study. A dose lowering technique was utilized adhering to the principles o f ALARA. FINDINGS: No acute intracranial hemorrhage, midline shift or mass effect is present. The ventricular system is unremarkable. The basal cisterns are patent. No extra-axial collections are present. There are no findings to suggest acute dural sinus thrombosis or acute territorial infarct. No significant calvarial abnormalities are present. Visualized portions of the sinuses and mastoid air cells are artemio ar. Secretions within the nasopharynx are likely related to intubation. IMPRESSION: No acute intracranial findings. ACT 112: Negative or not required by law. Electronically signed by: Eric Figueroa M.D. 02/26/2022 8:25 PM
[2022-02-26] MEDS ORDERED: STAT IV Infusion **Titration per Protocol STA ×3 (20:38→21:11)
[2022-02-26] MEDS ORDERED: PIPERACILLIN/TAZOBACTAM 4.5 GM/120 ML BAG IV ONE (20:38)
[2022-02-26] MEDS ORDERED: MIDAZOLAM BOLUS FROM BAG IV PRN (20:38)
[2022-02-26] MEDS ORDERED: MIDAZOLAM HCL 125 MG/250 ML BAG IV PRN (20:38)
[2022-02-26] MEDS ORDERED: ACETAMINOPHEN 1,000 MG/100 ML VIAL IV STA (20:40)
[2022-02-26] MEDS ORDERED: methylPREDNISolone 40 MG in SYRINGE 0 ML IV STA (20:44)
[2022-02-26 20:58] LABS: Base Excess ABG -5.2 mEq/L (-9-1.8); HCO3 ABG 20 mmol/L (19-24); Oxygen Saturation ABG 94.5 % (90-95); PCO2 ABG 37 mmHg (35-46); PO2 ABG 67 mmHg (80-95); pH ABG 7.34 (7.35-7.45)
[2022-02-26] MEDS ORDERED: Patient's HEIGHT &/or WEIGHT Needed SCH (21:00)
[2022-02-26 21:01] LABS: Allen Test Pos (Pos)
[2022-02-26] MEDS ORDERED: STAT IV STA (21:10)
--- NOTE | 2022-02-26 21:22 | History & Physical Report ---
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 DVT prophylaxis. Heparin subcu GI prophylaxis. Famotidine while on MV Full code Total critical care time was 40 minutes. Text document was generated using [employer] voice recognition software. It may contain grammatical or spelling errors. Kindly contact undersigned for clarification of any documentation item in question. History of Present Illness Chief Complaint: Overdose Primary Care Provider: NO PCP History obtained from ER provider and records. Limited history from patient secondary to intubated state. 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 Patient 40.5 g of Wellbutrin this afternoon. Patient left a suicidal note as per report. Patient became unresponsive while talking to police at home. Seizure activity witnessed by EMS. IV Versed administered at patient's home. Patient noted to be hypoxemic, O2 sats of 80s, upon arrival at the ER. Patient noted to be hypoglycemic as well. Patient subsequently intubated at the ER. Another G TC seizure witnessed at CAT scan. Cefepime, bicarb, Depakote administered at the ER. Medical History as above Surgical History/Family History /Personal/Social history : Could not be obtained secondary to intubated state Allergies Allergy/AdvReac Type Severity Reaction Status Date / Time Unable to Assess Allergy Unverified 02/26/22 21:15 Home Medications Medication Instructions Recorded Confirmed Type bupropion HCl 150 mg 24 hr tablet, 150 mg PO DAILY 02/26/22 02/26/22 History extended release bupropion HCl 300 mg 24 hr tablet, 300 mg PO DAILY 02/26/22 02/26/22 History extended release lamotrigine 100 mg tablet 200 mg PO DAILY 02/26/22 02/26/22 History lamotrigine 150 mg tablet 150 mg PO DAILY 02/26/22 02/26/22 History lurasidone 20 mg tablet (Latuda) 20 mg PO DAILY 02/26/22 02/26/22 History testosterone 50 mg/5 gram (1 %) 0 mg topical UD 02/26/22 02/26/22 History transdermal gel Past Med/Surg History Social History Smoking Status: Unknown if ever smoked Hx Alcohol Use: No (UNKOWN) Hx Substance Use: No (UNKOWN) Communication Ability: Unable Other Information That Helps Us Care for You: No (UNKOWN) Review of Systems Review of Systems: Could not be reliably obtained secondary to intubated state Physical Exam Physical Exam: GENERAL: Sedated, morbidly obese, intubated SKIN: Normal color, warm HEENT: [place] palpebral conjunctivae, no ptosis, dry buccal mucosa NECK : Supple, short neck, no tenderness CHEST : decreased breath sounds, no tenderness HEART : Tachycardic, no obvious murmurs ABDOMEN: Some distention, nontender EXTREMITIES : No LE swelling/tenderness, no other conspicuous deformities noted NEUROLOGIC : Sedated, mydriatic pupils (left greater than the right), no facial asymmetry, gait and stance not assessed Results & Data Results & Data ([facility]) Vital Signs (Past 12 Hours) Vital Signs Temp Pulse Resp BP Pulse Ox O2 Del Method FiO2 02/26/22 21:00 104 H 25 H 103/54 L 96 Mechanical Vent 02/26/22 20:45 108 H 25 H 107/51 L 02/26/22 20:30 111 H 25 H 103/52 L 95 Mechanical Vent 02/26/22 21:02 36.4 C L 02/26/22 20:17 114 H 24 108/57 L 96 Mechanical Vent 02/26/22 20:00 119 H 25 H 97/42 L 92 Mechanical Vent 02/26/22 19:45 112 H 25 H 102/44 L 02/26/22 18:40 86 25 H 97 70 02/26/22 19:35 114 H 25 H 89/46 L 98 Mechanical Vent 02/26/22 19:20 120 H 25 H 02/26/22 19:20 98/42 L 02/26/22 19:15 121 H 25 H 97 02/26/22 19:10 122 H 25 H 99/41 L 99 Mechanical Vent 02/26/22 19:00 121 H 25 H 104/41 L 98 Mechanical Vent 02/26/22 19:05 124 H 24 98 Mechanical Vent 02/26/22 18:51 120 H 20 87/41 L 97 Mechanical Vent 100 02/26/22 18:38 38.7 C H 190/157 H Laboratory Results Laboratory Results WBC 29.20 K/ul (4.8-10.8) H 02/26/22 18:39 RBC 4.22 M/uL (3.93-5.22) 02/26/22 18:39 Hgb 13.5 g/dl (12.0-16.0) 02/26/22 18:39 Hct 43.0 % (34.1-44.9) 02/26/22 18:39 MCV 101.9 fL (80.0-100.0) H 02/26/22 18:39 MCH 32.0 pg (25.0-34.0) 02/26/22 18:39 MCHC 31.4 g/dL (32.0-36.0) L 02/26/22 18:39 RDW Std Deviation 45.7 fL (36.4-46.3) 02/26/22 18:39 RDW Coeff of Ruth Ann 12.1 % (11.5-14.5) 02/26/22 18:39 Plt Count 377 K/uL (130-400) 02/26/22 18:39 MPV 10.1 fL (9.4-12.3) 02/26/22 18:39 Immature Gran % (Auto) 7.1 % 02/26/22 18:39 Neut % (Auto) 50.1 % 02/26/22 18:39 Lymph % (Auto) 35.1 % 02/26/22 18:39 [place] % (Auto) 6.6 % 02/26/22 18:39 Eos % (Auto) 0.6 % 02/26/22 18:39 Baso % (Auto) 0.5 % 02/26/22 18:39 Neut # (Auto) 14.62 K/uL (1.4-6.5) H 02/26/22 18:39 Lymph # (Auto) 10.25 K/uL (1.2-3.4) H 02/26/22 18:39 [place] # (Auto) 1.94 K/uL (0.24-0.82) H 02/26/22 18:39 Eos # (Auto) 0.17 K/uL (0-0.50) 02/26/22 18:39 Baso # (Auto) 0.14 K/uL (0-0.2) 02/26/22 18:39 Immature Gran # (Auto) 2.08 K/uL (0.00-0.02) H 02/26/22 18:39 PT 10.8 Seconds (9.0-12.0) 02/26/22 18:39 INR 1.0 (0.9-1.1) 02/26/22 18:39 ABG pH 7.34 (7.35-7.45) L 02/26/22 20:50 ABG pCO2 37 mmHg (35-46) 02/26/22 20:50 ABG pO2 67 mmHg (80-95) L 02/26/22 20:50 ABG HCO3 20 mmol/L (19-24) 02/26/22 20:50 ABG O2 Saturation 94.5 % (90-95) 02/26/22 20:50 ABG Base Excess -5.2 mEq/L (-9-1.8) 02/26/22 20:50 Dionte Test Pos (Pos) 02/26/22 20:50 Oxygen Given 50% 02/26/22 20:50 Sodium 141 mmol/L (136-145) 02/26/22 18:39 Potassium 4.6 mmol/L (3.5-5.1) 02/26/22 18:39 Chloride 103 mmol/L (98-107) 02/26/22 18:39 Carbon Dioxide 17 mmol/L (21-32) L 02/26/22 18:39 Anion Gap 21 (3-11) H 02/26/22 18:39 BUN 16 mg/dl (6-23) 02/26/22 18:39 Creatinine 1.48 mg/dl (0.6-1.2) H 02/26/22 18:39 Est Cr Clr Drug Dosing Not Reportable 02/26/22 18:39 Est GFR ( Amer) 55.3 ml/min 02/26/22 18:39 Est GFR (Non-Af Amer) 47.7 ml/min 02/26/22 18:39 BUN/Creatinine Ratio 10.8 (10-20) 02/26/22 18:39 Glucose 69 mg/dl (70-99(Fasting)) L 02/26/22 18:39 POC Glucose 95 mg/dl (70-99) 02/26/22 20:21 Lactate 2.8 mmol/L (0.4-2.0) H* 02/26/22 20:27 Calcium 9.9 mg/dl (8.5-10.1) 02/26/22 18:39 Magnesium 3.2 mg/dl (1.7-2.4) H 02/26/22 18:39 Total Bilirubin 0.3 mg/dl (0.2-1.0) 02/26/22 18:39 AST 13 U/L (13-39) 02/26/22 18:39 ALT 13 U/L (7-52) 02/26/22 18:39 Alkaline Phosphatase 86 U/L (34-104) 02/26/22 18:39 Total Creatine Kinase 102 U/L (26-192) 02/26/22 18:39 Troponin I High Sens 4.7 pg/ml (0-14) 02/26/22 18:39 Total Protein 7.6 gm/dl (6.0-8.3) 02/26/22 18:39 Albumin 4.5 gm/dl (3.4-5.0) 02/26/22 18:39 Globulin 3.1 gm/dl (2.5-4.0) 02/26/22 18:39 Albumin/Globulin Ratio 1.5 (0.9-2) 02/26/22 18:39 Lipase 35 U/L (11-82) 02/26/22 18:39 TSH 15.260 uIu/ml (0.300-4.500) H 02/26/22 18:39 Free T4 0.66 ng/dl (0.61-1.60) 02/26/22 18:39 Urine Color Yellow 02/26/22 18:40 Urine Appearance Clear (Clear) 02/26/22 18:40 Urine pH 5.0 (4.5-7.5) 02/26/22 18:40 Ur Specific [place] 1.013 (1.000-1.030) 02/26/22 18:40 Urine Protein Negative (Negative) 02/26/22 18:40 Urine Glucose (UA) Negative (Negative) 02/26/22 18:40 Urine Ketones 1+ (Negative) H 02/26/22 18:40 Urine Blood Trace (Negative) H 02/26/22 18:40 Urine Nitrite Negative (Negative) 02/26/22 18:40 Urine Bilirubin Negative (Negative) 02/26/22 18:40 Urine Urobilinogen Negative (Negative) 02/26/22 18:40 Ur Leukocyte Esterase Negative (Negative) 02/26/22 18:40 Urine WBC (Auto) 1-5 /hpf (0-5) 02/26/22 18:40 Urine RBC (Auto) 0-4 /hpf (0-4) 02/26/22 18:40 U Hyaline Cast (Auto) 5-10 /lpf (0-5) H 02/26/22 18:40 U Epithel Cells (Auto) >30 /lpf (0-5) H 02/26/22 18:40 Urine Bacteria (Auto) 1+ (Negative) H 02/26/22 18:40 Ur Renal Epithelial Cell Not Reportable 02/26/22 18:40 Urine Test Negative (Negative) 02/26/22 18:40 Salicylates < 3.0 mg/dl (3.0-30) L 02/26/22 18:39 Urine Opiates Screen Neg (Neg) 02/26/22 18:40 Ur Methadone, Qual Neg (Neg) 02/26/22 18:40 Acetaminophen < 3 ug/ml (10-30) L 02/26/22 18:39 Urine Barbiturates Neg (Neg) 02/26/22 18:40 Ur Phencyclidine (PCP) Neg (Neg) 02/26/22 18:40 U Amphetamin/Meth Scrn Pos (Neg) H 02/26/22 18:40 MDMA (Ecstasy) Screen Pos (Neg) H 02/26/22 18:40 U Benzodiazepines Scrn Neg (Neg) 02/26/22 18:40 Ur Cocaine Metabolite Neg (Neg) 02/26/22 18:40 U Marijuana (THC) Screen Neg (Neg) 02/26/22 18:40 Ethyl Alcohol mg/dL < 10.0 mg/dl (<10.0) 02/26/22 18:39 Adenovirus (PCR) Not Detected (NotDetected) 02/26/22 19:21 B. pertussis DNA (PCR) Not Detected (NotDetected) 02/26/22 19:21 B.parapertussis DNA PCR Not Detected (NotDetected) 02/26/22 19:21 C. pneumoniae DNA (PCR) Not Detected (NotDetected) 02/26/22 19:21 Coronavirus OC43 (PCR) Not Detected (NotDetected) 02/26/22 19:21 Coronavirus HKU1 (PCR) Not Detected (NotDetected) 02/26/22 19:21 Coronavirus 229E (PCR) Not Detected (NotDetected) 02/26/22 19:21 SARS-CoV-2 (PCR) Not Detected (NotDetected) 02/26/22 19:21 Coronavirus NL63 (PCR) Not Detected (NotDetected) 02/26/22 19:21 Human Metapneumovir PCR Not Detected (NotDetected) 02/26/22 19:21 Influenza Type A (PCR) Not Detected (NotDetected) 02/26/22 19:21 Influenza Type B (PCR) Not Detected (NotDetected) 02/26/22 19:21 M. pneumoniae (PCR) Not Detected (NotDetected) 02/26/22 19:21 Parainfluenza 1 (PCR) Not Detected (NotDetected) 02/26/22 19:21 Parainfluenza 2 (PCR) Not Detected (NotDetected) 02/26/22 19:21 Parainfluenza 3 (PCR) Not Detected (NotDetected) 02/26/22 19:21 Parainfluenza 4 (PCR) Not Detected (NotDetected) 02/26/22 19:21 RSV (PCR) Not Detected (NotDetected) 02/26/22 19:21 Entero/Rhino (PCR) Not Detected (NotDetected) 02/26/22 19:21 SARS-CoV-2, RNA, NAAT NEGATIVE (NEGATIVE) 02/26/22 19:[address] 02/26/22 18:40 CT OF THE HEAD WITHOUT CONTRAST CLINICAL HISTORY: od, unresponsive COMPARISON STUDY: No previous studies for comparison. CT DOSE: 884.08 mGy.cm TECHNIQUE: Helical axial images of the head were obtained without IV contrast. Automated exposure control was utilized for the study. A dose lowering technique was utilized adhering to the principles of ALARA. FINDINGS: No acute intracranial hemorrhage, midline shift or mass effect is present. The ventricular system is unremarkable. The basal cisterns are patent. No extra-axial collections are present. There are no findings to suggest acute dural sinus thrombosis or acute territorial infarct. No significant calvarial abnormalities are present. Visualized portions of the sinuses and mastoid air cells are clear. Secretions within the nasopharynx are likely related to intubation. IMPRESSION: No acute intracranial findings. ACT 112: Negative or not required by law. Electronically signed by: Eric Figueroa M.D. 02/26/2022 8:25 PM Chest X-Ray 02/26/22 19:45 SUPINE PORTABLE AP CHEST RADIOGRAPH CLINICAL HISTORY: central line placement COMPARISON STUDY: Chest radiograph performed earlier today. FINDINGS: Tip of endotracheal tube is 2.8 cm above the honorio. Tip of nasogastr ic tube is within the gastric antrum. There is an equivocal trace right apical pneumothorax. Tip of right internal jugular central line projects over the cavoatrial junction. This is probably artifactual. Interstitial thickening and bilateral opacities have increased. Cardiac size is normal. IMPRESSION: 1. Equivocal trace right apical pneumothorax. This is probably artifactual however a short-term follow-up upright chest radiograph is recommended. 2. Increase in bilateral airspace opacities and interstitial thickening. The findings could reflect pneumonia or aspiration pneumonitis. Although less likely, pulmonary edema could appear similar. ACT 112: Negative or not required by law. Electronically signed by: Eric Figueroa M.D. 02/26/2022 8:20 PM Diagnostic Findings EKG as per my interpretation :Rate 110, sinus tachycardia, normal axis, ST depression anterolateral leads
[2022-02-26] MEDS ORDERED: SODIUM BICARBONATE 8.4% 150 MEQ in DEXTROSE 5% 1,000 ML IV SCH (21:30)
[2022-02-26] MEDS: MIDAZOLAM HCL 125 MG/250 ML BAG IV SCH (21:35)
[2022-02-26] MEDS ORDERED: LACTATED RINGER'S 500 ML IV ONE (21:42)
[2022-02-26] MEDS: NOREPINEPHRINE/D5W 4 MG/250 ML PLCT IV SCH (21:44)
--- NOTE | 2022-02-26 22:22 | Critical Care Consultation ---
Date of Consultation February 26, 2022 Assessment & Plan (1) Acidosis, lactic: (2) Acute hypotension: (3) Drug overdose: (4) Shock: (5) Aspiration pneumonia of both lower lobes: (6) Respiratory failure: (7) Seizure: (8) Hypothyroidism: Plan Reason Critically Ill: 26 YOF with ingestion of Bupropion reported in a text/letter, where the patient was found down. Unknown exact amount however reported the amount would be up to 14GM of BUPROPRION XR. Patient was intubated for encephalopathy resulting in obtundation and re-current seizures. She was given Ativan for her seizures. ICU was consulted for further management. She currently with neurotoxic evidence and also requiring vasopressors for hypotension Neuro - Overdose intentional, Seizures, Sedated for mechanical ventilation Intubated for recurrent seizures and obtundation- these are likely related to his bupropion toxicity,as this is the most common effect- Midazolam 6mg/hr for sedation as well as seizures, if not controlled will add Propfol. Improvement in neurological exam upon arriving to ICU with localization of pain, and facial grimmacing - Amount of ingestion is reported up to 14 GM of extended release- this dose would carry a high likelihood of both neurotoxicity and cardiac toxicity. supportive care as above for seizure treatment/prophylaxis, will continue with IVF to dilute the effects as able, Patient is now with hypotension and is adequately volume resuscitated. If vasopressor requirement is increasing, will undertake total bowel irrigation with go-lytely until stools are clear- case discussed with Staff Attending Dr. Mojica - If she becomes refractory to pressors - consider intralipid infusion as well. - BIS monitor - Aware that neurotoxicity can have pretty severely altered neurological exams- continue full supportive care - hold further sedating medications- hold home lamotrigine, hold Latuda, hold bupropion - Neurology consulted- appreciate assistance- EEG now - received [place] in EMD. Will hold on further dosing - Recommend psychiatric consultation when patient able to participate in interview Cardiac - Shock requiring vasopressor support With her ingestion of above medication will provide pressors. If cardiotoxicity progresses this will likely be refractory supportive care as above Lactic Acidosis is improving Qtc 456- continue to keep K >4 and Mag >2.0 avoid further QT prolonging medications as able Respiratory - Intubated requiring mechanical respiration, aspiration pneumonia/pneumonitis Ventilator support per ARDSnet Continue Cefepime- can likely de-escalate PCT now Blood cultures pending Will obtain CT non con of chest evaluate pulmonary green better with volume loss on repeat CXR- pthx not seen on repeat CXR so will evaluate as well. GI - No acute needs OGT placed, total bowel irrigation as above KUB in morning follow for illeus which is also effects of large ingestion RENAL/LYTES - PORTER, Metabolic Acidosis - Isotonic HCO3 infusion - Replete electrolytes aggressively - BMP q4 hours - CK normal - No acute needs Padilla to gravity placed ENDO - Elevated TSH with normal T4 Defere to Medicine following recovery of acute illness BG 69 on arrival - isotonic HCO3 in D5- follow BG q6 hours with hypoglycemic protocol HEME - No acute needs ID - Aspiration pna Leukocytosis, CXR opacifications in bases- continue Zosyn LINES/IV ACCESS - Right IJ CVL, Left Radial Arterial Line, Padilla, ETT, OGT Continue use of these lines DVT PROPHYLAXIS - SCDS, Heparin 5000 units sub q DISPO ICU until mentation improves and extubated I have personally spent 50 minutes of critical care time in the direct management of this patient. This is a life/limb threatening event. This includes time spent evaluating patient, direct bedside care, chart review, placing orders, interpretation of diagnostic studies, discussion with consultants, patient, and family members, as well as other required patient management activities. This time is exclusive of all separately billable procedures, and separate from and in addition to any other critical care service time. Thank you for allowing us to participate in the care of this patient. Please refer to my attending physician's documentation for any further recommendations. History of Present Illness Reason for Consultation: Buproprion Overdose, intubated, ventilated, seizure Requesting Physician: Ray Yao Attending Physician: Ray Yao History of Present Illness 26 YOF with no notes in our medical system to review. Patient was brought in by EMS after being found down outside. Reports that there was a message stating how much Buproprion she took, which was reported to be upwards to 14GM. Her medication review shows that this is the extended release. It is reported that she was conversant but confused when she was found. The ingestion appears to be at 1400. Patient seized on the way to the hospital and was given versed. Patient arrived to the ED not coherent, had 3 more seizures and another in CT scan which had some difficulty breaking. The patient was intubated for obtundation as well as repeated seizures. Poison Control was contacted and no charcoal was administered. Her neurological exam is with bilateral dilated reactive pupils no localization, and flinches to deep pain. Patient had an OGT placed and Central line to the right IJ as well in EMD. She was acidotic on arrival and has since been with adequate PH. The patient was given 3Liters of crystalloid. ICU was consulted for admission, her hemodynamics were borderline at that time with SBP 90s and Maps 58-60. For this reason an arterial line was placed in her left wrist, Levophed was initiated as. Whole bowel irrigation will be undertaken with Danny if continued hemodynamic compromise and rising vasopressor requirement. Currently she is with evidence of neurotoxicity. EEG stat ordered and being performed. No contacts noted, FULL CODE COVID on admission is: NEGATIVE Patient Medical and Surgical History is unable to be reviewed or completed secondary to mental status Allergies Allergy/AdvReac Type Severity Reaction Status Date / Time Unable to Assess Allergy Unverified 02/26/22 21:15 Home Medications Medication Instructions Recorded Confirmed Type bupropion HCl 150 mg 24 hr tablet, 150 mg PO DAILY 02/26/22 02/26/22 History extended release bupropion HCl 300 mg 24 hr tablet, 300 mg PO DAILY 02/26/22 02/26/22 History extended release lamotrigine 100 mg tablet 200 mg PO DAILY 02/26/22 02/26/22 History lamotrigine 150 mg tablet 150 mg PO DAILY 02/26/22 02/26/22 History lurasidone 20 mg tablet (Latuda) 20 mg PO DAILY 02/26/22 02/26/22 History testosterone 50 mg/5 gram (1 %) 0 mg topical UD 02/26/22 02/26/22 History transdermal gel Patient History Social History Smoking Status: Unknown if ever smoked Hx Alcohol Use: No (UNKOWN) Hx Substance Use: No (UNKOWN) Communication Ability: Unable Other Information That Helps Us Care for You: No (UNKOWN) Physical Exam Physical Exam: PHYSICAL EXAM: General: Obese, intubated and sedated Head: Normocephalic, atraumatic Neuro: Pupils dilated 8mm brisk, no nystagmus, not following commands, mild withdarw to deep pain, gag intact Chest: Intubated and sedated, compliant with ventilator, coarse rhonci bilaterally in bases Cardiac: Regular rate and rhythm, telemetry reviewed- sinus tach, skin cool dry, cap refill <3 seconds, peripheral pusles +2 no JVD, no murmur, trace edema GI: NABS x 4 quadrants, soft, OGT in place : Padilla to [place] Results & Data Results & Data ([facility]) Vital Signs (Past 12 Hours) Vital Signs Temp Pulse Resp BP Pulse Ox O2 Del Method FiO2 02/26/22 21:54 94 H 25 H 88/47 L 99 Mechanical Vent 02/26/22 21:30 96 H 25 H 95/47 L 98 Mechanical Vent 02/26/22 21:47 107 H 25 H 98 50 02/26/22 21:20 98 H 25 H 97/47 L 97 Mechanical Vent 02/26/22 21:10 100 H 25 H 99/50 L 97 Mechanical Vent 02/26/22 21:00 104 H 25 H 103/54 L 96 Mechanical Vent 02/26/22 20:45 108 H 25 H 107/51 L 02/26/22 20:30 111 H 25 H 103/52 L 95 Mechanical Vent 02/26/22 21:02 36.4 C L 02/26/22 20:17 114 H 24 108/57 L 96 Mechanical Vent 02/26/22 20:00 119 H 25 H 97/42 L 92 Mechanical Vent 02/26/22 19:45 112 H 25 H 102/44 L 02/26/22 18:40 86 25 H 97 70 02/26/22 19:35 114 H 25 H 89/46 L 98 Mechanical Vent 02/26/22 19:20 120 H 25 H 02/26/22 19:20 98/42 L 02/26/22 19:15 121 H 25 H 97 02/26/22 19:10 122 H 25 H 99/41 L 99 Mechanical Vent 02/26/22 19:00 121 H 25 H 104/41 L 98 Mechanical Vent 02/26/22 19:05 124 H 24 98 Mechanical Vent 02/26/22 18:51 120 H 20 87/41 L 97 Mechanical Vent 100 02/26/22 18:38 38.7 C H 190/157 H Laboratory Results Abnormal lab results 02/26/22 02/26/22 02/26/22 Range/Units 18:39 18:39 18:39 WBC (4.8-10.8) K/ul MCV (80.0-100.0) fL MCHC (32.0-36.0) g/dL Neut # (Auto) (1.4-6.5) K/uL Lymph # (Auto) (1.2-3.4) K/uL Archer # (Auto) (0.24-0.82) K/uL Immature Gran # (Auto) (0.00-0.02) K/uL ABG pH (7.35-7.45) ABG pO2 (80-95) mmHg Carbon Dioxide 17 L (21-32) mmol/L Anion Gap 21 H (3-11) Creatinine 1.48 H (0.6-1.2) mg/dl Glucose 69 L (70-99(Fasting)) mg/dl POC Glucose (70-99) mg/dl Lactate (0.4-2.0) mmol/L Magnesium 3.2 H (1.7-2.4) mg/dl TSH 15.260 H (0.300-4.500) uIu/ml Urine Ketones (Negative) Urine Blood (Negative) U Hyaline Cast (Auto) (0-5) /lpf U Epithel Cells (Auto) (0-5) /lpf Urine Bacteria (Auto) (Negative) Salicylates < 3.0 L (3.0-30) mg/dl Acetaminophen < 3 L (10-30) ug/ml U Amphetamin/Meth Scrn (Neg) MDMA (Ecstasy) Screen (Neg) 02/26/22 02/26/22 02/26/22 Range/Units 18:39 18:39 18:40 WBC 29.20 H (4.8-10.8) K/ul MCV 101.9 H (80.0-100.0) fL MCHC 31.4 L (32.0-36.0) g/dL Neut # (Auto) 14.62 H (1.4-6.5) K/uL Lymph # (Auto) 10.25 H (1.2-3.4) K/uL Archer # (Auto) 1.94 H (0.24-0.82) K/uL Immature Gran # (Auto) 2.08 H (0.00-0.02) K/uL ABG pH (7.35-7.45) ABG pO2 (80-95) mmHg Carbon Dioxide (21-32) mmol/L Anion Gap (3-11) Creatinine (0.6-1.2) mg/dl Glucose (70-99(Fasting)) mg/dl POC Glucose (70-99) mg/dl Lactate 17.9 H* (0.4-2.0) mmol/L Magnesium (1.7-2.4) mg/dl TSH (0.300-4.500) uIu/ml Urine Ketones 1+ H (Negative) Urine Blood Trace H (Negative) U Hyaline Cast (Auto) 5-10 H (0-5) /lpf U Epithel Cells (Auto) >30 H (0-5) /lpf Urine Bacteria (Auto) 1+ H (Negative) Salicylates (3.0-30) mg/dl Acetaminophen (10-30) ug/ml U Amphetamin/Meth Scrn (Neg) MDMA (Ecstasy) Screen (Neg) 02/26/22 02/26/22 02/26/22 Range/Units 18:40 19:41 20:27 WBC (4.8-10.8) K/ul MCV (80.0-100.0) fL MCHC (32.0-36.0) g/dL Neut # (Auto) (1.4-6.5) K/uL Lymph # (Auto) (1.2-3.4) K/uL Archer # (Auto) (0.24-0.82) K/uL Immature Gran # (Auto) (0.00-0.02) K/uL ABG pH (7.35-7.45) ABG pO2 (80-95) mmHg Carbon Dioxide (21-32) mmol/L Anion Gap (3-11) Creatinine (0.6-1.2) mg/dl Glucose (70-99(Fasting)) mg/dl POC Glucose 63 L* (70-99) mg/dl Lactate 2.8 H* (0.4-2.0) mmol/L Magnesium (1.7-2.4) mg/dl TSH (0.300-4.500) uIu/ml Urine Ketones (Negative) Urine Blood (Negative) U Hyaline Cast (Auto) (0-5) /lpf U Epithel Cells (Auto) (0-5) /lpf Urine Bacteria (Auto) (Negative) Salicylates (3.0-30) mg/dl Acetaminophen (10-30) ug/ml U Amphetamin/Meth Scrn Pos H (Neg) MDMA (Ecstasy) Screen Pos H (Neg) 02/26/22 Range/Units 20:50 WBC (4.8-10.8) K/ul MCV (80.0-100.0) fL MCHC (32.0-36.0) g/dL Neut # (Auto) (1.4-6.5) K/uL Lymph # (Auto) (1.2-3.4) K/uL Archer # (Auto) (0.24-0.82) K/uL Immature Gran # (Auto) (0.00-0.02) K/uL ABG pH 7.34 L (7.35-7.45) ABG pO2 67 L (80-95) mmHg Carbon Dioxide (21-32) mmol/L Anion Gap (3-11) Creatinine (0.6-1.2) mg/dl Glucose (70-99(Fasting)) mg/dl POC Glucose (70-99) mg/dl Lactate (0.4-2.0) mmol/L Magnesium (1.7-2.4) mg/dl TSH (0.300-4.500) uIu/ml Urine Ketones (Negative) Urine Blood (Negative) U Hyaline Cast (Auto) (0-5) /lpf U Epithel Cells (Auto) (0-5) /lpf Urine Bacteria (Auto) (Negative) Salicylates (3.0-30) mg/dl Acetaminophen (10-30) ug/ml U Amphetamin/Meth Scrn (Neg) MDMA (Ecstasy) Screen (Neg) Diagnostic Findings Head CT 02/26/22 18:40 CT OF THE HEAD WITHOUT CONTRAST CLINICAL HISTORY: od, unresponsive COMPARISON STUDY: No previous studies for comparison. CT DOSE: 884.08 mGy.cm TECHNIQUE: Helical axial images of the head were obtained without IV contrast. Automated exposure control was utilized for the study. A dose lowering technique was utilized adhering to the principles of ALARA. FINDINGS: No acute intracranial hemorrhage, midline shift or mass effect is present. The ventricular system is unremarkable. The basal cisterns are patent. No extra-axial collections are present. There are no findings to suggest acute dural sinus thrombosis or acute territorial infarct. No significant calvarial abnormalities are present. Visualized portions of the sinuses and mastoid air cells are clear. Secretions within the nasopharynx are likely related to intubation. IMPRESSION: No acute intracranial findings. ACT 112: Negative or not required by law. Electronically signed by: Eric Figueroa M.D. 02/26/2022 8:25 PM Chest X-Ray 02/26/22 18:41 SUPINE PORTABLE AP CHEST RADIOGRAPH CLINICAL HISTORY: od, s/p ETT COMPARISON STUDY: No previous studies for comparison. FINDINGS: The tip of the endotracheal tube is 1.4 cm above the honorio. Tip of nasogastric tube is at least within the body of the stomach. No pneumothorax is identified on supine exam. No pleural effusion is present. Pulmonary vascularity is normal. Cardiomediastinal silhouette is unremarkable. Subtle interstitial thickening and possible patchy airspace opacities are present. IMPRESSION: 1. Tip of endotracheal tube 1.4 cm above the honorio. 2. Subtle interstitial thickening and possible patchy bilateral airspace opacities. An infectious process or aspiration cannot be excluded. ACT 112: Negative or not required by law. Electronically signed by: Eric Figueroa M.D. 02/26/2022 7:05 PM Chest X-Ray 02/26/22 19:45 SUPINE PORTABLE AP CHEST RADIOGRAPH CLINICAL HISTORY: central line placement COMPARISON STUDY: Chest radiograph performed earlier today. FINDINGS: Tip of endotracheal tube is 2.8 cm above the honorio. Tip of nasogastric tube is within the gastric antrum. There is an equivocal trace right apical pneumothorax. Tip of right internal jugular central line projects over the cavoatrial junction. This is probably artifactual. Interstitial thickening and bilateral opacities have increased. Cardiac size is normal. IMPRESSION: 1. Equivocal trace right apical pneumothorax. This is probably artifactual however a short-term follow-up upright chest radiograph is recommended. 2. Increase in bilateral airspace opacities and interstitial thickening. The findings could reflect pneumonia or aspiration pneumonitis. Although less likely, pulmonary edema could appear similar. ACT 112: Negative or not required by law. Electronically signed by: Eric Figueroa M.D. 02/26/2022 8:20 PM Medications Administered Home Medications bupropion HCl 150 mg 24 hr tablet, extended release 150 mg PO DAILY 02/26/22 [History Confirmed 02/26/22] bupropion HCl 300 mg 24 hr tablet, extended release 300 mg PO DAILY 02/26/22 [History Confirmed 02/26/22] lamotrigine 100 mg tablet 200 mg PO DAILY 02/26/22 [History Confirmed 02/26/22] lamotrigine 150 mg tablet 150 mg PO DAILY 02/26/22 [History Confirmed 02/26/22] lurasidone 20 mg tablet (Latuda) 20 mg PO DAILY 02/26/22 [History Confirmed 02/26/22] testosterone 50 mg/5 gram (1 %) transdermal gel 0 mg topical UD 02/26/22 [History Confirmed 02/26/22] Active Medications Midazolam HCl (Versed) 125 mg in 250 mls @ 12 mls/hr IV .[id number] TONI; Protocol Stop: 03/28/22 20:59 Last Admin: 02/26/22 21:35 Dose: 6 mg/hr, 12 mls/hr Sodium Bicarbonate 150 meq/ (Dextrose) 1,150 mls @ 150 mls/hr IV .[id number] TONI Stop: 03/28/22 21:29 Last Admin: 02/26/22 22:31 Dose: 150 mls/hr Norepinephrine Bitartrate (Levophed/D5w) 4 mg in 250 mls @ 21.956 mls/hr IV .[id number] TONI; Protocol Stop: 03/28/22 21:14 Last Titration: 02/26/22 22:02 Dose: 0.05 mcg/kg/min, 22 mls/hr Famotidine 20 mg/ Syringe 5 mls @ 2.5 mls/min IV BID TONI Stop: 03/29/22 08:59 Midazolam HCl (Midazolam Bolus From Bag) 4 mg IV Q60M PRN PRN Reason: Sedation/seizure Stop: 03/28/22 20:51 Last Admin: 02/26/22 22:34 Dose: 4 mg Miscellaneous (Patient's Height &/Or Weight Needed) 1 each N/A Q2H TONI Stop: 03/28/22 20:59 Miscellaneous Information (Patient's Allergy Info Needs Entered) 1 each N/A Q30M [facility] Stop: 03/28/22 20:59 ECG Additional Comments: Sinus tachycardia Nonspecific ST abnormality Abnormal ECG No previous ECGs available QT/QTc 336/456 ms Coding Level of Care Code Critical Care 1st 30-74 mins Diagnoses Acidosis, lactic E87.20 Acute hypotension I95.9 Drug overdose T50.901A Shock R57.9 Aspiration pneumonia of both lower lobes J69.0 Respiratory failure J96.90 Seizure R56.9 Hypothyroidism E03.9
[2022-02-26] MEDS ORDERED: LAVAGE SOLUTION 4000ML PO ONE (22:30)
[2022-02-26] MEDS: MIDAZOLAM BOLUS FROM BAG IV PRN (22:34)
--- NOTE | 2022-02-26 22:37 | Procedure Note ---
Procedure Note Date of Service February 26, 2022 Note ARTERIAL LINE PROCEDURE NOTE: Procedure: Arterial Line Placement APC: [place] RED ([facility]) Attending: Dr. Mojica Indication: Monitoring on Pressors Anesthesia: [x]None Consent was not obtained as patient intubated and sedated, emergent procedure for hypotension requiring vasopressors. Allens test was performed to ensure adequate perfusion. Patients LEFT wrist was prepped and draped in the usual sterile fashion. Ultrasound guidance was used to oil refiner vessel and direct visualization to aid needle placement. A 20g Arrow arterial line was introduced into the LEFT RADIAL artery, brisk return of blood was noted, wire was advanced without resistance, the catheter was threaded, and the needle was removed with appropriate blood return. Good waveform was observed. Line was secured with suture. The patient tolerated the procedure well. Images were not saved to the record. Blood Loss: Minimal Complications: No immediate complications noted Procedural Ultrasound Guidance: Procedure Date: Indication: Direct Visualization for arterial line placement JOSEPH: [place] [facility] ([facility]) Attending: Dr. Mojica Artery Identified: YES Complications: NONE Patient tolerated procedure: WELL Coding CPT Codes Tubes, Drains, and Vasc Access - Tubes, Drains, and Vasc Access: [id number] Place Catheter In Artery ([id number]) Tubes, Drains, and Vasc Access - Tubes, Drains, and Vasc Access: [id number] Ultrasound Guidance For Vascular ([id number]) [facility] Procedure Codes (Charges) Tubes, Drains, and Vasc Access Procedure 1: Tubes, Drains, and Vasc Access: [id number] Place Catheter In Artery Procedure 2: Tubes, Drains, and Vasc Access: [id number] Ultrasound Guidance For Vascular
[2022-02-26] MEDS ORDERED: GLUCOSE 40% GEL 15 GM TUBE PO PRN (22:51)
[2022-02-26] MEDS ORDERED: GLUCOSE 10 TAB/TUBE PO PRN (22:51)
[2022-02-26] MEDS ORDERED: LORazepam 1 MG/1 ML SYR IV PRN (22:51)
[2022-02-26] MEDS ORDERED: DEXTROSE 50% 50 ML SYRINGE IV PRN (22:51)
[2022-02-26] MEDS ORDERED: GLUCAGON FOR INJ 1 MG VIAL SQ PRN (22:51)
[2022-02-26] MEDS ORDERED: ACETAMINOPHEN 1,000 MG/100 ML VIAL IV PRN (22:51)
[2022-02-26] MEDS ORDERED: CARBOHYDRATES FOR HYPOGLYCEMIA PO PRN (22:51)
[2022-02-26] MEDS ORDERED: LORazepam 1 MG in SYRINGE 0 ML IV PRN (23:16)
[2022-02-26] MEDS: Patient's ALLERGY Info needs ENTERED SCH (23:58)
[2022-02-27] MEDS: HEPARIN SOD 5,000 UNIT/0.5 ML VIAL SQ SCH ×4 (00:11→21:13)
[2022-02-27] MEDS ORDERED: MAGNESIUM SULFATE / D5W 1 GM/100 ML BAG IV SCH (01:45)
[2022-02-27 01:47] LABS: BUN Creatinine Ratio 13.1 (10-20); Calcium 7.4 mg/dl (8.5-10.1); Creatinine Clr Calc Pharmacy 106.7 ml/min; Est GFR (African American) 89.9 ml/min; Est GFR (Non-African American) 77.6 ml/min; Magnesium 2.4 mg/dl (1.7-2.4); Potassium 3.2 mmol/L (3.5-5.1)
[2022-02-27] MEDS ORDERED: POTASSIUM CHLORIDE 20 MEQ/15 ML UDC PO STA ×2 (01:48→05:46)
[2022-02-27] MEDS ORDERED: MAGNESIUM SULFATE / D5W 1 GM/100 ML BAG IV ONE (01:49)
[2022-02-27] MEDS ORDERED: fentaNYL citrate 100 MCG/2 ML VIAL IV PRN (03:20)
[2022-02-27] MEDS ORDERED: NORMOSOL-R 1,000 ML IV SCH (04:00)
[2022-02-27] MEDS ORDERED: PIPERACILLIN/TAZOBACTAM 4.5 GM in DEXTROSE 5% 100 ML IV SCH (04:00)
[2022-02-27 04:59] LABS: iSTAT Art Bld Gas pCO2 Correct 26 mmHg (35-46); iSTAT Arterial Blood Gas HCO3 19 meg/L (19-24); iSTAT Arterial Blood Gas pCO2 28 mmHg (35-46); iSTAT Arterial Blood Gas pH 7.43 (7.35-7.45); iSTAT Arterial Blood Gas pO2 87 mmHg (80-95); iSTAT Arterial Blood Gas pO2 C 80; iSTAT Carbon Dioxide 19 mmol/L (24-31); iSTAT FiO2 40 %; iSTAT Hematocrit 32 % (37-47); iSTAT Hemoglobin 10.9 g/dl (12.0-16.0); iSTAT Site Art Line; iSTAT Sodium 147 mmol/L (135-144)
[2022-02-27] MEDS ORDERED: CARBOHYDRATES FOR HYPOGLYCEMIA PO PRN (05:09)
[2022-02-27] MEDS ORDERED: GLUCAGON FOR INJ 1 MG VIAL SQ PRN (05:09)
[2022-02-27] MEDS ORDERED: DEXTROSE 50% 50 ML SYRINGE IV PRN (05:09)
[2022-02-27] MEDS ORDERED: GLUCOSE 40% GEL 15 GM TUBE PO PRN (05:09)
[2022-02-27] MEDS ORDERED: GLUCOSE 10 TAB/TUBE PO PRN (05:09)
[2022-02-27 05:18] LABS: iSTAT Art Bld Gas pCO2 Correct 35 mmHg (35-46); iSTAT Art Bld Gas pH Corrected 7.433 (7.35-7.45); iSTAT Arterial Blood Gas HCO3 23 meg/L (19-24); iSTAT Arterial Blood Gas pCO2 35 mmHg (35-46); iSTAT Arterial Blood Gas pH 7.43 (7.35-7.45); iSTAT Arterial Blood Gas pO2 100 mmHg (80-95); iSTAT Arterial Blood Gas pO2 C 101; iSTAT Carbon Dioxide 24 mmol/L (24-31); iSTAT FiO2 30 %; iSTAT Hematocrit 36 % (37-47); iSTAT Hemoglobin 12.2 g/dl (12.0-16.0); iSTAT Potassium 3.3 mmol/L (3.3-5.0); iSTAT Site Art Line; iSTAT Sodium 144 mmol/L (135-144)
[2022-02-27] MEDS: INSULIN ASPART PER UNIT SC SCH ×3 (05:33→16:59)
[2022-02-27 05:36] LABS: BUN Creatinine Ratio 12.8 (10-20); Calcium 7.4 mg/dl (8.5-10.1); Creatinine Clr Calc Pharmacy 122.8 ml/min; Est GFR (African American) 106.6 ml/min; Est GFR (Non-African American) 91.9 ml/min; Magnesium 2.3 mg/dl (1.7-2.4); Potassium 3.3 mmol/L (3.5-5.1)
[2022-02-27 05:51] LABS: Basophils # (auto) 0.01 K/uL (0-0.2); Basophils % (auto) 0.1 %; Hematocrit (blood only) 32.8 % (34.1-44.9); Hemoglobin 11.6 g/dl (12.0-16.0); Immature Granulocytes # (auto) 0.12 K/uL (0.00-0.02); Immature Granulocytes % (auto) 1.1 %; Lymphocytes # (auto) 0.47 K/uL (1.2-3.4); Lymphocytes % (auto) 4.3 %; Mean Corpuscular Hemoglobin 31.8 pg (25.0-34.0); Mean Corpuscular Hgb Conc 35.4 g/dL (32.0-36.0); Mean Corpuscular Volume 89.9 fL (80.0-100.0); Mean Platelet Volume 9.9 fL (9.4-12.3); Monocytes # (auto) 0.33 K/uL (0.24-0.82); Neutrophils # (auto) 10.11 K/uL (1.4-6.5); Neutrophils % (auto) 91.5 %; Platelet Count 237 K/uL (130-400); RBC Morphology Unremarkable; RDW Coefficient of Variation 12.3 % (11.5-14.5); RDW Standard Deviation 40.6 fL (36.4-46.3); Red Blood Count 3.65 M/uL (3.93-5.22); White Blood Count 11.04 K/ul (4.8-10.8)
[2022-02-27] MEDS: fentaNYL citrate 100 MCG/2 ML VIAL IV PRN ×13 (05:54→23:42)
--- NOTE | 2022-02-27 07:17 | XRay Report ---
SINGLE VIEW CHEST CLINICAL HISTORY: Reassess possible pneumothorax. FINDINGS: An AP, portable, semierect chest radiograph is compared to study dated 02/26/2022. The exam ination is degraded by portable technique and patient rotation. An endotracheal tube, an enteric tub e, and a right internal jugular central venous catheter are unchanged in position. The cardiomediasti nal silhouette is unremarkable. There is near-complete atelectasis of the right upper lobe, with katelyn esponding volume loss in the right lung. The left lung appears clear. No large pleural effusion or pn eumothorax is seen. The bony thorax is grossly intact. IMPRESSION: 1. Stable lines and tubes. 2. There is near complete atelectasis of the right upper lobe. This has significantly progressed as c ompared to today's earlier examination. 3. No pneumothorax is seen. ACT 112: Negative or not required by law. Electronically signed by: Caesar John M.D. 02/27/2022 7:16 AM
[2022-02-27] MEDS ORDERED: ICU Protocol for HYPERglycemia SCH (07:30)
--- NOTE | 2022-02-27 07:53 | Critical Care Progress Note ---
Date of Service February 27, 2022 Assessment & Plan (1) Acidosis, lactic: (2) Acute hypotension: (3) Drug overdose: (4) Shock: (5) Aspiration pneumonia of both lower lobes: (6) Respiratory failure: (7) Seizure: (8) Hypothyroidism: Plan Reason Critically Ill: 26 YOF with ingestion of Bupropion reported in a text/letter, where the patient was found down. Unknown exact amount however reported the amount would be up to 14GM of BUPROPRION XR. Patient was intubated for encephalopathy resulting in obtundation and re-current seizures. She was given Ativan for her seizures. ICU was consulted for further management. She currently with neurotoxic evidence and also requiring vasopressors for hypotension Neuro - Overdose intentional, Seizures, Sedated for mechanical ventilation Sedated with midazolam --Metabolic encephalopathy Secondary to intentional overdose of bupropion 14 g Did have witnessed seizure for which patient was intubated EEG did not show any signs of seizure-like activity New text positive for amphetamine as well as ecstasy Negative for salicylates and acetaminophen, negative alcohol - Recommend psychiatric consultation when patient able to participate in interview Cardiac - -- S/p shock With her ingestion of above medication will provide pressors. If cardiotoxicity progresses this will likely be refractory supportive care as above Lactic Acidosis is improving avoid further QT prolonging medications as able -- Prolonged QTC 425 02/27/2022 keep K >4 and Mag >2.0 Respiratory - -- VDRF Multifactorial Altered mental status with seizure-like activity Continue with ventilatory support Daily sedation holidays and SBT's -- Aspiration pneumonia Opacities bilateral lower lobes on the CAT scan of the chest Continue with antibiotics Nasal MRSA negative -- Right upper lobe atelectasis Resolved on the chest x-ray done 02/27/2022 GI - Continue with Pepcid RENAL/LYTES - --PORTER --> improving Monitor BUNs/creatinine Avoid nephrotoxic medication -- S/p HAGMA - No acute needs Padilla to gravity placed ENDO - --Elevated TSH with normal T4 Will repeat TSH and T4 tomorrow HEME - Leukocytosis, likely reactive Continue to monitor ID - -- Aspiration Pneumonia Continue with antibiotics --Prophylaxis VTE: Heparin GI: Pepcid Lines:, Left radial, Right IJ, positive Padilla Diet: Start tube feeds Plan: In/out: Positive 4.1 L, urine output 1275 Hypokalemia being replaced Continue sedation with midazolam. Try to keep RASS -1. Keep an eye for seizure like activity Will give another dose of keppra. Start tube feeds. Repeat TSH and Free T4 tomorrow I have personally spent 44 minutes of critical care time in the direct management of this patient. This is a life/limb threatening event. This includes time spent evaluating patient, direct bedside care, chart review, placing orders, interpretation of diagnostic studies, discussion with consultants, patient, and family members, as well as other required patient management activities. This time is exclusive of all separately billable procedures, and separate from and in addition to any other critical care service time. Thank you for allowing us to participate in the care of this patient. Please refer to my attending physician's documentation for any further recommendations. Admission and Anticipated Discharge Date Admission Date: February 26, 2022 Subjective Patient seen and examined at bedside. No acute distress. Was on midazolam at the time of examination Breathing over the vent Spiking low-grade fever. No seizure-like activity since coming to the hospital. Occasional jerky movements Review of Systems Review of Systems: All systems reviewed & are unremarkable except as noted in Subjective Physical Exam Physical Exam: Constitutional: No acute distress HEENT: PERRLA, positive ETT Respiratory system: Decreased air entry bilaterally, no wheeze, no rhonchi, positive crackles bilateral lower lobes CVS: S1-S2 positive, no murmurs or gallops, tachycardia Abdomen: Soft, nontender, nondistended, positive bowel sounds x4 Extremities: +2 pulses bilaterally radialis/ dorsalis pedis, no cyanosis, no edema Neuro: Sedated, breathing over the vent, positive pupillary and gag Psych: Unable to assess G/U: Positive Padilla Skin: no rashes, warm and dry Lymphatic: no cervical or axillary lymphadenopathy Results & Data Results & Data ([facility]) Vital Signs (Past 12 Hours) Vital Signs Temp Pulse Resp BP Pulse Ox O2 Del Method FiO2 02/27/22 07:33 103 H 23 99 30 02/27/22 07:00 37.6 C H 98 H 23 113/62 95 Mechanical Vent 30 02/27/22 06:30 37.5 C 105 H 23 97 Mechanical Vent 30 02/27/22 06:00 37.4 C 97 H 23 119/68 96 Mechanical Vent 30 02/27/22 05:30 37.3 C 101 H 25 H 97 Mechanical Vent 30 02/27/22 05:00 37.1 C 100 H 23 119/70 96 Mechanical Vent 30 02/27/22 04:30 36.9 C 99 H 24 97 Mechanical Vent 30 02/27/22 03:59 27 H 30 02/27/22 04:00 36.7 C 96 H 23 128/92 98 Mechanical Vent 30 02/27/22 03:30 36.5 C 94 H 24 97 Mechanical Vent 30 02/27/22 04:00 30 02/27/22 03:00 36.3 C L 94 H 23 115/78 97 Mechanical Vent 30 02/27/22 02:31 36.2 C L 86 23 97 Mechanical Vent 30 02/27/22 02:05 36.2 C L 86 23 120/74 97 Mechanical Vent 30 02/27/22 01:30 36.1 C L 89 23 96 Mechanical Vent 30 02/27/22 01:18 36.0 C L 95 H 23 119/83 100 Mechanical Vent 30 02/26/22 23:51 23 02/26/22 23:00 92 H 28 H 98 40 02/27/22 00:30 35.9 C L 86 23 116/75 98 Mechanical Vent 30 02/27/22 00:00 35.8 C L 86 23 97 Mechanical Vent 30 02/26/22 23:30 90 25 H 96 Mechanical Vent 30 02/26/22 23:26 35.0 C L 85 25 H 99/56 L 99 Mechanical Vent 30 02/26/22 23:20 92 H 25 H 113/64 100 Mechanical Vent 30 02/26/22 23:12 92 H 24 99 Mechanical Vent 30 02/27/22 00:45 Mechanical Vent 30 02/27/22 00:00 30 02/26/22 23:54 34.7 C L 02/26/22 22:40 94 H 25 H 140/81 98 Mechanical Vent 02/26/22 22:30 96 H 26 H 122/64 99 Mechanical Vent 02/26/22 22:10 96 H 25 H 115/63 98 Mechanical Vent 02/26/22 22:00 97 H 25 H 131/75 98 Mechanical Vent 02/26/22 21:54 94 H 25 H 88/47 L 99 Mechanical Vent 02/26/22 21:30 96 H 25 H 95/47 L 98 Mechanical Vent 02/26/22 21:47 107 H 25 H 98 50 02/26/22 21:20 98 H 25 H 97/47 L 97 Mechanical Vent 02/26/22 21:10 100 H 25 H 99/50 L 97 Mechanical Vent 02/26/22 21:00 104 H 25 H 103/54 L 96 Mechanical Vent 02/26/22 20:45 108 H 25 H 107/51 L 02/26/22 20:30 111 H 25 H 103/52 L 95 Mechanical Vent 02/26/22 21:02 36.4 C L 02/26/22 20:17 114 H 24 108/57 L 96 Mechanical Vent 02/26/22 20:00 119 H 25 H 97/42 L 92 Mechanical Vent Laboratory Results 02/27/22 05:00 02/27/22 05:00 Coding Level of Care Code Critical Care 1st 30-74 mins Diagnoses Acidosis, lactic E87.20 Acute hypotension I95.9 Drug overdose T50.901A Shock R57.9 Aspiration pneumonia of both lower lobes J69.0 Respiratory failure J96.90 Seizure R56.9 Hypothyroidism E03.9 Time Spent (min) 44
[2022-02-27] MEDS: Patient's ALLERGY Info needs ENTERED SCH ×6 (08:02→13:38)
[2022-02-27] MEDS: NOREPINEPHRINE/D5W 4 MG/250 ML PLCT IV SCH ×2 (08:03→18:02)
[2022-02-27] MEDS: FAMOTIDINE 20 MG in SYRINGE 3 ML IV SCH ×2 (08:11→20:19)
--- NOTE | 2022-02-27 08:15 | XRay Report ---
XR chest 1V portable HISTORY: Respiratory failure. Follow-up. COMPARISON: Chest 02/26/2022. FINDINGS: The right upper lobe atelectasis has almost completely resolved in the interval. No pneumot horax. There are low lung volumes. The heart is mildly enlarged. No new focal lung consolidations. No evidence for pulmonary edema. Stable lines and tubes with the endotracheal tube terminating approxim ately 4 cm from the honorio. IMPRESSION: 1. Stable lines/tubes. 2. Near-complete resolution of the right upper lobe atelectasis. ACT 112: Negative or not required by law. Electronically signed by: Rashi Huston M.D. 02/27/2022 8:14 AM
--- NOTE | 2022-02-27 08:51 | CT Scan Report ---
CT SCAN OF THE CHEST WITHOUT IV CONTRAST CLINICAL HISTORY: Lobar atelectasis. COMPARISON STUDY: Chest radiographs performed earlier the same day 02/26/2022. TECHNIQUE: CT scan of the thorax was performed from the thoracic inlet to the upper abdomen. Images are reviewed in the axial, sagittal, and coronal planes. IV contrast was not administered for this ex amination as per the referring clinician. A dose lowering technique was utilized adhering to the sonia nciderrek of CARTER. The examination is degraded by motion artifact, as well as by streak artifact from the arms which could not be elevated above the chest. CT DOSE: 847.52 mGy.cm FINDINGS: Thyroid: Imaged portions of the thyroid gland are normal in size and attenuation. Thoracic aorta: The thoracic aorta is normal in caliber and demonstrates standard 3-vessel arch anato my. Heart: A right internal jugular central venous catheter is in place. The heart is top normal in size and without pericardial effusion. Lungs and pleural spaces: An endotracheal tube terminates above the honorio. There is near-complete at electasis/consolidation of the right upper lobe with associated volume loss in the right lung. There are small pleural effusions with dependent consolidation. No pneumothorax is seen. Mediastinum: There is no mediastinal lymphadenopathy. Jazzmine: Not well assessed without IV contrast. Axillae: There is no axillary lymphadenopathy. Upper abdomen: An enteric tube is in place. This extends below the diaphragm into the stomach. Partia lly visualized upper abdominal viscera is within normal limits. Skeletal structures: No lytic or blastic bony lesions are seen. IMPRESSION: 1. There is near complete atelectasis/consolidation throughout the right upper lobe. This has progres sed from today's earlier chest radiograph. 2. Small pleural effusions with dependent consolidation. Correlate clinically for evidence of pneumon ia/aspiration pneumonitis. 3. No pneumothorax is seen. 4. Lines and tubes as above. ACT 112: Negative or not required by law. Electronically signed by: Caesar John M.D. 02/27/2022 8:48 AM
[2022-02-27] MEDS: MIDAZOLAM BOLUS FROM BAG IV PRN ×2 (10:26→22:18)
[2022-02-27] MEDS ORDERED: PEPTAMEN INTENSE VHP 1.0 CAL 1,000 ML BAG OG SCH (10:30)
[2022-02-27] MEDS ORDERED: levETIRAcetam 500 MG in 0.9 % SODIUM CHLORIDE 100 ML IV SCH (10:30)
[2022-02-27] MEDS: TUBE FEEDING WATER FLUSH OG SCH ×4 (11:34→22:14)
[2022-02-27] MEDS: AMPICILLIN/SULBACTAM SOD 3,000 MG in 0.9 % SODIUM CHLORIDE 100 ML IV SCH ×2 (11:35→16:58)
--- NOTE | 2022-02-27 13:00 | Electrocardiogram Report ---
Test Reason : Blood Pressure : / mmHG Vent. Rate : 111 BPM Atrial Rate : 111 BPM P-R Int : 190 ms QRS Dur : 108 ms QT Int : 336 ms P-R-T Axes : 045 050 042 degrees QTc Int : 456 ms Sinus tachycardia Minor ST segement depressions concerning for ischemia Abnormal ECG No previous ECGs available Confirmed by Garrett Diaz ([id number]) on 02/27/2022 1:00:16 PM Referred By: REFERRED SELF Confirmed By:Nigel Diaz
--- NOTE | 2022-02-27 13:16 | Electrocardiogram Report ---
Test Reason : Blood Pressure : / mmHG Vent. Rate : 089 BPM Atrial Rate : 089 BPM P-R Int : 184 ms QRS Dur : 096 ms QT Int : 438 ms P-R-T Axes : 050 030 065 degrees QTc Int : 532 ms Normal sinus rhythm Prolonged QT Abnormal ECG When compared with ECG of 26-FEB-2022 18:36, (unconfirmed) ST segements have normalized Confirmed by Garrett Diaz ([id number]) on 02/27/2022 1:16:24 PM Referred By: REFERRED SELF Confirmed By:Nigel Diaz
--- NOTE | 2022-02-27 13:17 | Electrocardiogram Report ---
Test Reason : Blood Pressure : / mmHG Vent. Rate : 094 BPM Atrial Rate : 094 BPM P-R Int : 186 ms QRS Dur : 098 ms QT Int : 420 ms P-R-T Axes : 053 032 073 degrees QTc Int : 525 ms Normal sinus rhythm Prolonged QT Abnormal ECG When compared with ECG of 26-FEB-2022 23:39, (unconfirmed) No significant change was found Confirmed by Garrett Diaz ([id number]) on 02/27/2022 1:17:25 PM Referred By: REFERRED SELF Confirmed By:Nigel Diaz
[2022-02-27] MEDS: MIDAZOLAM HCL 125 MG/250 ML BAG IV SCH ×2 (13:38→13:51)
[2022-02-27 13:44] LABS: BUN Creatinine Ratio 10.5 (10-20); Calcium 7.4 mg/dl (8.5-10.1); Creatinine Clr Calc Pharmacy 139.6 ml/min; Est GFR (African American) 123.7 ml/min; Est GFR (Non-African American) 106.8 ml/min; Phosphorus 3.3 mg/dl (2.5-4.9); Potassium 3.8 mmol/L (3.5-5.1)
--- NOTE | 2022-02-27 13:49 | Hospitalist Progress Note ---
Date of Service February 27, 2022 Assessment & Plan (1) Acute hypoxemic respiratory failure: (2) Drug overdose: Plan 26-year-old with PMH of mood disorder, gender identity disorder who was found by police with AMS and became unresponsive shortly after talking to police. She is being managed for the following: Likely aspiration pneumonia secondary to new onset seizure activity secondary to intentional overdose of Wellbutrin Acute hypoxemic respiratory failure Severe sepsis POA [SARS plus ARF plus hypoxemia plus encephalopathy] secondary to above Likely toxic and metabolic encephalopathy Lactic acidosis: resolved. Patient was found by police and became unresponsive while talking to police at home. Seizure activity was witnessed by EMS and then another seizure activity witnessed at CAT scan. Patient was noted to be hypoxemic at presentation, initially on high flow oxygen, then intubated 02/26 at ED. Per record, patient had left suicidal note indicating she took approximately 14.5 g Wellbutrin at around 2 PM of 02/26. Admitting CT head: No acute findings. Admitting CXR with possible patchy bilateral airspace opacities suggestive of infectious process or aspiration. Nasal MRSA negative at admission. 02/27 CT chest: Near complete consolidation throughout the right upper lobe, spinal small pleural effusion with dependent consolidation. No pneumothorax. Follow-up CXR on 02/27 with near complete resolution of right upper lobe atelectasis. Urine toxicology at admission positive for amphetamine, ecstasy. Negative for salicylates and Tylenol. Follow final results. Admitting EKG with QTC of 456, 02/27 EKG with QTC of 525. Labs with elevated WBC, downtrending. Neurology consulted, await recs Psychiatric consult when patient extubated. Patient currently intubated, being managed in ICU On unasyn for aspiration Received Keppra, on Midazolam Plan for starting TF today, possible extubation tomorrow Avoiding QT prolonging meds, monitoring QTc. Monitoring and repleting electrolytes w/ goal of K >4 and Mg > 2 D/w convolute tube winder. Suicide precautions Bicarb for QRS greater than 120 ms, magnesium for QTC greater than 500 ms as per poison control recommendations per admitting note. Acute Kidney Injury: present at admission, resolved. Subclinical hypothyroidism: elevated TSH w/ normal T4 at admission. Repeat tft kellen. Other chronic medical conditions: Mood disorder, gender identity disorder. Hold psychiatric meds until psy eval. Full code DVT prophylaxis: Heparin subcu GI prophylaxis while intubated Admission and Anticipated Discharge Date Admission Date: February 26, 2022 Subjective Patient seen and examined at bedside as a follow-up of acute hypoxemic respiratory failure and aspiration pneumonia, likely and new onset seizure secondary to intentional overdose of Wellbutrin and severe sepsis at A. Patient was lying in bed, mechanically ventilated, intubated, sedated, patient on Versed with intermittent fentanyl, ROS n/a. Physical Exam Physical Exam: GENERAL: Sedated, MV, intubation, versed drip +. HEENT: No pallor, no icterus. Pupils equal, round and reactive to light. Oral mucosa dry. NECK: No JVD, no neck masses. HEART: S1 and S2 heard. tachycardia. No murmur, no gallop. RESPIRATORY SYSTEM: Normal AP diameter. No accessory muscle use. No wheezing, b/b crackles. ABDOMEN: Soft, bowel sounds present, no distention. CENTRAL NERVOUS SYSTEM: n/a EXTREMITIES: No edema, no erythema seen. Padilla +. Results & Data Results & Data ([facility]) Vital Signs (Past 12 Hours) Vital Signs Temp Pulse Resp BP Pulse Ox O2 Del Method FiO2 02/27/22 12:00 37.6 C H 101 H 20 96 02/27/22 12:00 105/62 02/27/22 11:00 37.5 C 99 H 20 97 02/27/22 11:00 104/52 L 02/27/22 12:00 30 02/27/22 11:01 100 H 24 99 30 02/27/22 10:00 37.5 C 103 H 21 96 02/27/22 10:00 109/61 02/27/22 09:00 37.4 C 99 H 18 96 02/27/22 08:00 Mechanical Vent 02/27/22 08:00 Mechanical Vent 30 02/27/22 08:00 30 02/27/22 08:00 37.7 C H 97 H 23 97 02/27/22 07:30 37.6 C H 102 H 24 97 02/27/22 07:33 103 H 23 99 30 02/27/22 07:00 37.6 C H 98 H 23 113/62 95 Mechanical Vent 30 02/27/22 06:30 37.5 C 105 H 23 97 Mechanical Vent 30 02/27/22 06:00 37.4 C 97 H 23 119/68 96 Mechanical Vent 30 30/22 05:30 37.3 C 101 H 25 H 97 Mechanical Vent 02/27/22 05:00 37.1 C 100 H 23 119/70 96 Mechanical Vent 02/27/22 04:30 36.9 C 99 H 24 97 Mechanical Vent 02/27/22 03:59 27 H 02/27/22 04:00 36.7 C 96 H 23 128/92 98 Mechanical Vent 02/27/22 03:30 36.5 C 94 H 24 97 Mechanical Vent 02/27/22 04:00 02/27/22 03:00 36.3 C L 94 H 23 115/78 97 Mechanical Vent 02/27/22 02:31 36.2 C L 86 23 97 Mechanical Vent 02/27/22 02:05 36.2 C L 86 23 120/74 97 Mechanical Vent 02/27/22 01:30 36.1 C L 89 23 96 Mechanical Vent 30
--- NOTE | 2022-02-27 14:46 | Electroencephalogram ---
EEG Procedure Note Date of Service February 27, 2022 Start / End Times Start Time: 09:58 End Time: 10:18 Referring Physician Phoenix Aggarwal History The patient was admitted with bupropion overdosing, and seizure-like activity. She is currently sedated and intubated. This EEG is ordered to evaluate for ongoing seizures. Home Medication List Medication Instructions Recorded Confirmed Type bupropion HCl 150 mg 24 hr tablet, 150 mg PO DAILY 02/26/22 02/26/22 History extended release bupropion HCl 300 mg 24 hr tablet, 300 mg PO DAILY 02/26/22 02/26/22 History extended release lamotrigine 100 mg tablet 200 mg PO DAILY 02/26/22 02/26/22 History lamotrigine 150 mg tablet 150 mg PO DAILY 02/26/22 02/26/22 History lurasidone 20 mg tablet (Latuda) 20 mg PO DAILY 02/26/22 02/26/22 History testosterone 50 mg/5 gram (1 %) 0 mg topical UD 02/26/22 02/26/22 History transdermal gel Inpatient Medication List Fentanyl Citrate (Fentanyl Citrate 100 Mcg/2 Ml Vial) 50 mcg IV Q1H PRN PRN Reason: pain/sedation Stop: 03/13/22 03:19 Last Admin: 02/27/22 13:37 Dose: 50 mcg Documented By: Admin: 02/27/22 11:35 Dose: 50 mcg Documented By: Admin: 02/27/22 10:26 Dose: 50 mcg Documented By: Admin: 02/27/22 09:30 Dose: 50 mcg Documented By: Admin: 02/27/22 08:11 Dose: 50 mcg Documented By: Admin: 02/27/22 05:54 Dose: 50 mcg Documented By: CRISTAL Heparin Sodium (Porcine) (Heparin Sod 5,000 Unit/0.5 Ml Vial) 5,000 units SQ Q8 TONI Stop: 03/28/22 22:50 Last Admin: 02/27/22 11:38 Dose: 5,000 units Documented By: Admin: 02/27/22 05:19 Dose: 5,000 units Documented By: Admin: 02/27/22 00:11 Dose: 5,000 units Documented By: CRISTAL Midazolam HCl (Versed) 125 mg in 250 mls @ 20 mls/hr IV .[id number] TONI; Protocol Stop: 03/28/22 20:59 Last Admin: 02/27/22 13:51 Dose: Not Given Documented By: Admin: 02/27/22 13:38 Dose: 10 mg/hr, 20 mls/hr Documented By: ES Co-signed By: WRS Titration: 02/27/22 13:38 Dose: 9.5 mg/hr, 19 mls/hr Documented By: ES Co-signed By: WRS Titration: 02/27/22 13:00 Dose: 9.5 mg/hr, 19 mls/hr Documented By: ES Co-signed By: WRS Titration: 02/27/22 12:00 Dose: 9 mg/hr, 18 mls/hr Documented By: ES Co-signed By: KJS Titration: 02/27/22 11:00 Dose: 8.5 mg/hr, 17 mls/hr Documented By: ES Co-signed By: KJS Titration: 02/27/22 09:30 Dose: 8 mg/hr, 16 mls/hr Documented By: ES Co-signed By: KJS Titration: 02/27/22 07:49 Dose: 7.5 mg/hr, 15 mls/hr Documented By: SG Co-signed By: ES Titration: 02/27/22 06:14 Dose: 7 mg/hr, 14 mls/hr Documented By: SG Co-signed By: JT Titration: 02/27/22 05:00 Dose: 7.5 mg/hr, 15 mls/hr Documented By: SG Co-signed By: LLP Titration: 02/27/22 04:00 Dose: 7 mg/hr, 14 mls/hr Documented By: SG Co-signed By: LAF Titration: 02/27/22 03:00 Dose: 6.5 mg/hr, 13 mls/hr Documented By: SG Co-signed By: LAF Admin: 02/26/22 21:35 Dose: 6 mg/hr, 12 mls/hr Documented By: RONI Co-signed By: DANIEL Norepinephrine Bitartrate (Levophed/D5w) 4 mg in 250 mls @ 21.956 mls/hr IV .[id number] [facility]; Protocol Stop: 03/28/22 21:14 Last Titration: 02/27/22 12:00 Dose: 0 mcg/kg/min, 0 mls/hr Documented By: Admin: 02/27/22 08:03 Dose: Not Given Documented By: Titration: 02/26/22 23:00 Dose: 0 mcg/kg/min, 0 mls/hr Documented By: Titration: 02/26/22 22:02 Dose: 0.05 mcg/kg/min, 22 mls/hr Documented By: Titration: 02/26/22 21:55 Dose: 0.07 mcg/kg/min, 30.7 mls/hr Documented By: Admin: 02/26/22 21:44 Dose: 0.05 mcg/kg/min, 22 mls/hr Documented By: RONI Co-signed By: DANIEL Famotidine 20 mg/ Syringe 5 mls @ 2.5 mls/min IV BID [facility] Stop: 03/29/22 08:59 Last Admin: 02/27/22 08:11 Dose: 2.5 mls/min Documented By: MARINA Ampicillin Sodium/Sulbactam Sodium 3,000 mg/ Sodium Chloride 108 mls @ 216 mls/hr IV Q6H [facility] Stop: 03/06/22 11:59 Last Infusion: 02/27/22 12:20 Dose: 0 mls/hr Documented By: Infusion: 02/27/22 12:00 Dose: 0 mls/hr Documented By: Admin: 02/27/22 11:35 Dose: 216 mls/hr Documented By: MARINA Insulin Aspart (Insulin Aspart Per Unit) 0 units SC Q6 TONI Stop: 03/29/22 05:59 Last Admin: 02/27/22 11:35 Dose: Not Given Documented By: Admin: 02/27/22 05:33 Dose: 3 units Documented By: CRISTAL Co-signed By: NITA Midazolam HCl (Midazolam Bolus From Bag) 4 mg IV Q60M PRN PRN Reason: Sedation/seizure Stop: 03/28/22 20:51 Last Admin: 02/27/22 10:26 Dose: 4 mg Documented By: Admin: 02/26/22 22:34 Dose: 4 mg Documented By: RONI Miscellaneous Information (Patient's Allergy Info Needs Entered) 1 each N/A QS [facility] Stop: 03/29/22 06:59 Last Admin: 02/27/22 13:38 Dose: Not Given Documented By: Admin: 02/27/22 08:04 Dose: Not Given Documented By: Admin: 02/27/22 08:02 Dose: Not Given Documented By: MARINA Nutritional Formula (Peptamen Intense Vhp 1.0 Julio 1,000 Ml Bag) 1,000 ml OG UD TONI; Protocol Stop: 03/29/22 10:29 Last Admin: 02/27/22 11:35 Dose: 1,000 ml Documented By: MARINA Sterile Water (Tube Feeding Water Flush) 100 ml OG Q4H TONI Stop: 03/29/22 10:44 Last Admin: 02/27/22 13:37 Dose: 100 ml Documented By: Admin: 02/27/22 11:34 Dose: 100 ml Documented By: MARINA Discontinued Medications Fentanyl Citrate (Fentanyl Citrate 100 Mcg/2 Ml Vial) 50 mcg IV Q2H PRN PRN Reason: pain/sedation Stop: 03/13/22 03:19 Last Admin: 02/27/22 04:30 Dose: 50 mcg Documented By: CRISTAL Sodium Chloride (Nss 1000ml) 1,000 mls @ 999 mls/hr IV .Q1H1M TONI Stop: 02/26/22 19:45 Last Infusion: 02/26/22 19:31 Dose: 0 mls/hr Documented By: Admin: 02/26/22 18:53 Dose: 999 mls/hr Documented By: MIKE(2) Sodium Chloride (Nss 1000ml) 1,000 mls @ 999 mls/hr IV .Q1H1M TONI Stop: 02/26/22 20:15 Last Infusion: 02/26/22 19:31 Dose: 0 mls/hr Documented By: Admin: 02/26/22 19:03 Dose: 999 mls/hr Documented By: RONI Cefepime HCl (Maxipime) 2,000 mg in 20 mls @ 5 mls/min IV NOW STA; Protocol Stop: 02/26/22 19:18 Last Admin: 02/26/22 19:20 Dose: 5 mls/min Documented By: RONI Sodium Chloride (Nss 1000ml) 1,000 mls @ 999 mls/hr IV .Q1H1M ONE Stop: 02/26/22 20:16 Last Infusion: 02/26/22 20:35 Dose: 0 mls/hr Documented By: Admin: 02/26/22 19:20 Dose: 999 mls/hr Documented By: RONI Dextrose/Sodium Chloride (D5w And Nss) 1,000 mls @ 250 mls/hr IV .Q4H TONI Stop: 03/28/22 19:44 Last Infusion: 02/26/22 21:43 Dose: 0 mls/hr Documented By: Infusion: 02/26/22 21:42 Dose: 0 mls/hr Documented By: Admin: 02/26/22 19:46 Dose: 100 mls/hr Documented By: RONI Levetiracetam 2,000 mg/ Sodium (Chloride) 270 mls @ 999 mls/hr IV NOW STA Stop: 02/26/22 20:25 Last Infusion: 02/26/22 21:15 Dose: 0 mls/hr Documented By: Admin: 02/26/22 20:45 Dose: 999 mls/hr Documented By: RONI Acetaminophen (Ofirmev) 1,000 mg in 100 mls @ 400 mls/hr IV NOW STA Stop: 02/26/22 20:54 Last Infusion: 02/26/22 21:13 Dose: 0 mls/hr Documented By: Admin: 02/26/22 20:52 Dose: 400 mls/hr Documented By: RONI Piperacillin Sod/Tazobactam Sod (Zosyn) 4.5 gm in 120 mls @ 240 mls/hr IV NOW ONE Stop: 02/26/22 21:07 Last Infusion: 02/26/22 22:19 Dose: 0 mls/hr Documented By: Admin: 02/26/22 21:48 Dose: 240 mls/hr Documented By: RONI Methylprednisolone 40 mg/ (Syringe) 0.64 mls @ 1.5 mls/min IV NOW STA Stop: 02/26/22 20:45 Last Admin: 02/26/22 21:35 Dose: 1.5 mls/min Documented By: RONI Sodium Bicarbonate 150 meq/ (Dextrose) 1,150 mls @ 150 mls/hr IV .Q7H40M TONI Stop: 03/28/22 21:29 Last Infusion: 02/27/22 05:19 Dose: 0 mls/hr Documented By: Admin: 02/26/22 22:31 Dose: 150 mls/hr Documented By: RONI Lactated Ringer's (Lr) 500 mls @ 999 mls/hr IV .Q31M ONE Stop: 02/26/22 22:12 Last Infusion: 02/26/22 22:18 Dose: 0 mls/hr Documented By: Admin: 02/26/22 21:43 Dose: 999 mls/hr Documented By: RONI Piperacillin Sod/Tazobactam (Sod 4.5 gm/ Dextrose) 120 mls @ 30 mls/hr IV Q8H [facility]ONI; Protocol Stop: 03/06/22 03:59 Last Infusion: 02/27/22 08:03 Dose: 0 mls/hr Documented By: Admin: 02/27/22 03:49 Dose: 30 mls/hr Documented By: SG Magnesium Sulfate/Dextrose (Magnesium Sulfate / D5w) 1 gm in 100 mls @ 50 mls/hr IV Q2H TONI Stop: 02/27/22 05:44 Last Infusion: 02/27/22 01:53 Dose: 0 mls/hr Documented By: Admin: 02/27/22 01:45 Dose: 50 mls/hr Documented By: SG Magnesium Sulfate/Dextrose (Magnesium Sulfate / D5w) 1 gm in 100 mls @ 50 mls/hr IV ONE ONE Stop: 02/27/22 03:48 Last Infusion: 02/27/22 03:57 Dose: 0 mls/hr Documented By: Admin: 02/27/22 01:54 Dose: 50 mls/hr Documented By: SG Parenteral Electrolytes (Normosol-R) 1,000 mls @ 75 mls/hr IV .[id number] [facility] Stop: 03/29/22 03:59 Last Infusion: 02/27/22 12:00 Dose: 0 mls/hr Documented By: Infusion: 02/27/22 11:36 Dose: 75 mls/hr Documented By: Admin: 02/27/22 05:18 Dose: 100 mls/hr Documented By: SG Levetiracetam 500 mg/ Sodium (Chloride) 105 mls @ 420 mls/hr IV TODAY@1030 [facility] Stop: 02/27/22 10:44 Last Infusion: 02/27/22 10:42 Dose: 0 mls/hr Documented By: Admin: 02/27/22 10:28 Dose: 420 mls/hr Documented By: MARINA Lorazepam (Lorazepam 1 Mg/1 Ml Syr) 2 mg IV NOW STA; Protocol Stop: 02/26/22 18:41 Last Admin: 02/26/22 19:00 Dose: 2 mg Documented By: RONI Lorazepam (Lorazepam 1 Mg/1 Ml Syr) 2 mg IV NOW STA; Protocol Stop: 02/26/22 20:10 Last Admin: 02/26/22 20:37 Dose: 2 mg Documented By: RONI Lorazepam (Lorazepam 1 Mg/1 Ml Syr) 2 mg IV NOW STA; Protocol Stop: 02/26/22 20:20 Last Admin: 02/26/22 20:44 Dose: Not Given Documented By: RONI Mccloud (Stat Iv Infusion Titration Per Protocol) 1 each N/A NOW STA Stop: 02/26/22 20:39 Last Admin: 02/26/22 23:58 Dose: 1 each Documented By: CRISTAL Mccloud (Icu Protocol For Hyperglycemia) 1 each N/A ACHS [facility] Stop: 03/01/22 07:29 Last Admin: 02/27/22 05:09 Dose: 1 each Documented By: CRISTAL Mccloud Information (Patient's Allergy Info Needs Entered) 1 each N/A Q30M [facility] Stop: 03/28/22 20:59 Last Admin: 02/27/22 08:06 Dose: Not Given Documented By: Admin: 02/27/22 08:06 Dose: Not Given Documented By: Admin: 02/27/22 08:06 Dose: Not Given Documented By: Admin: 02/27/22 08:06 Dose: Not Given Documented By: Admin: 02/27/22 08:06 Dose: Not Given Documented By: Admin: 02/27/22 08:06 Dose: Not Given Documented By: Admin: 02/27/22 08:06 Dose: Not Given Documented By: Admin: 02/27/22 08:06 Dose: Not Given Documented By: Admin: 02/27/22 08:06 Dose: Not Given Documented By: Admin: 02/27/22 08:06 Dose: Not Given Documented By: Admin: 02/27/22 08:06 Dose: Not Given Documented By: Admin: 02/27/22 08:06 Dose: Not Given Documented By: Admin: 02/27/22 08:06 Dose: Not Given Documented By: Admin: 02/27/22 08:05 Dose: Not Given Documented By: Admin: 02/27/22 08:05 Dose: Not Given Documented By: Admin: 02/27/22 08:05 Dose: Not Given Documented By: Admin: 02/27/22 08:03 Dose: Not Given Documented By: Admin: 02/26/22 23:58 Dose: 1 each Documented By: CRISTAL Norepinephrine Bitartrate (Norepinephrine/D5w 4 Mg/250 Ml) Confirm Administered Dose 4 mg IV .STK-MED ONE Stop: 02/26/22 19:38 Last Admin: 02/26/22 20:18 Dose: 4 mg Documented By: RONI Polyethylene Glycol/Electrolytes (Lavage Solution 4000ml) 6 dose PO NOW ONE Stop: 02/26/22 22:31 Last Admin: 02/27/22 08:03 Dose: Not Given Documented By: MARINA Potassium Chloride (Potassium Chloride 20 Meq/15 Ml Udc) 60 meq PO NOW STA Stop: 02/27/22 01:49 Last Admin: 02/27/22 01:54 Dose: 60 meq Documented By: CRISTAL Potassium Chloride (Potassium Chloride 20 Meq/15 Ml Udc) 40 meq PO NOW STA Stop: 02/27/22 05:47 Last Admin: 02/27/22 05:56 Dose: 40 meq Documented By: CRISTAL Sodium Bicarbonate (Sodium Bicarb 8.4% Inj 50 Meq/50 Ml Syr) 100 meq IV NOW STA Stop: 02/26/22 18:54 Last Admin: 02/26/22 19:02 Dose: 100 meq Documented By: RONI Description This is a 21 electrode EEG with a single channel dedicated to limited EKG. The electrodes were placed in accordance with the International 10-20 system. Interpretation Throughout this EEG recording, the patient is sedated and intubated. There is no clinical seizure or seizure-like activities. There is no distinctive posterior rhythm to indicate wakefulness. Background activity shows low amplitude, 1 to 2 Hz frontotemporal delta, intermixed with occasional, low amplitude theta waveforms, and low amplitude, generalized high- frequency waves (beta waves). There is no asymmetry. Short episodes of vertex sharp waves and sleep spindles are recorded bilaterally and symmetrically, indicative of stage II sleep. Photic stimulations do not induce posterior driving responses. Hyperventilation can not be performed. There are no electrographic seizures, or epileptogenic discharges. Impression: This EEG, recorded in the patient's deeply sedated state, is abnormal due to diffuse slowing with low amplitude, suggestive of bihemispheric dysfunction, as seen in encephalopathies and sedated state. There is no electrographic seizure or epileptogenic discharge. Low amplitude, high-frequency generalized waveforms are likely due to benzodiazepine effect. Clinical Correlation Normal interictal routine EEG does not rule out seizure disorder definitively. Clinical correlation is suggested.
--- NOTE | 2022-02-27 15:17 | Neurology Consultation ---
Date of Consultation February 27, 2022 Assessment & Plan (1) Seizure: Impression: The patient was admitted after intentional bupropion overdosing, which caused encephalopathy, initial recurrent seizures. She received Ativan and IV levetiracetam initially. The patient has not had additional clinical seizure or seizure-like activities. EEG did not show epileptogenic activity or electrographic seizures. The patient has been on lamotrigine, bupropion and Latuda or psychiatric problems. She has no prior history of seizure disorder. Recommendations: There is no indication to add antiepileptic treatment at this time. Further seizures are not expected. Seizure precautions. The patient should be restarted on lamotrigine after extubation, to avoid withdrawal seizures. Psychiatry consultation regarding psychotropic medication treatment. We will reevaluate patient if she continue having seizure or seizure-like activities. (2) Drug overdose: Impression: The patient was admitted after intentional bupropion overdose. Reportedly, total amount was 14 g. (3) Aspiration pneumonia of both lower lobes: Plan Thank you for the consultation. History of Present Illness Reason for Consultation: New onset seizures Requesting Physician: Orlando White MD Attending Physician: Cindy Perry MD History of Present Illness The patient is a 26-year-old female, who was brought to the emergency department due to bupropion intentional overdose. The patient was found encephalopathy, then had recurrent seizures, and intubated. She was treated in the emergency department with IV Ativan and loaded with levetiracetam. Based on imaging studies, the patient had a respiratory dysfunction, probably secondary to aspiration. There has been no additional clinical seizure or seizure-like activities since admission. EEG was done, which showed diffuse slowing but no electrographic seizure or epileptogenic discharge. The patient has no history of seizure disorder but has been treated for mood disorder on lamotrigine, Latuda, and bupropion. Since this afternoon, the patient has been more responsive, opening eyes to painful stimuli, and moving all extremities symmetrically. I have reviewed the patient's chart including imaging studies and visualized them personally. I have discussed the case with nursing staff. Allergies Allergy/AdvReac Type Severity Reaction Status Date / Time Unable to Assess Allergy Unverified 02/26/22 21:15 Home Medications Medication Instructions Recorded Confirmed Type bupropion HCl 150 mg 24 hr tablet, 150 mg PO DAILY 02/26/22 02/26/22 History extended release bupropion HCl 300 mg 24 hr tablet, 300 mg PO DAILY 02/26/22 02/26/22 History extended release lamotrigine 100 mg tablet 200 mg PO DAILY 02/26/22 02/26/22 History lamotrigine 150 mg tablet 150 mg PO DAILY 02/26/22 02/26/22 History lurasidone 20 mg tablet (Latuda) 20 mg PO DAILY 02/26/22 02/26/22 History testosterone 50 mg/5 gram (1 %) 0 mg topical UD 02/26/22 02/26/22 History transdermal gel Patient History Social History Smoking Status: Unknown if ever smoked Hx Alcohol Use: No (UNKOWN) Hx Substance Use: No (UNKOWN) Communication Ability: Unable Other Information That Helps Us Care for You: No (UNKOWN) Review of Systems Review of Systems: Unobtainable due to cognitive status Physical Exam Physical Exam: General Examination: Constitutional: Well developed person, intubated, in no apparent distress. HENT: Normal exam with inspection. CV: Hearth rhythm is regular. Neck: Supple, no carotid bruits. Lungs: Bibasilar crackles Abdomen: Soft, non-tender, non-distended. Skin: No rash or ecchymosis. Extremities: No edema or cyanosis NEUROLOGICAL EXAMINATION: Mental Status: Sedated. The patient opens eyes to tactile stimuli with short lasting eye contact. She does not follow verbal commands. Cranial Nerves: Pupils are 3 mm and reactive to light bilaterally. Extraocular muscles are intact with the doll's maneuver. Positive corneal and gag reflexes. Facial symmetry is preserved during grimacing. Funduscopy: Normal looking optic discs. Motor: Withdraws all extremities to noxious stimuli, without obvious asymmetry. Tone: Normal without spasticity or rigidity. Sensory: The patient feels pinprick in all extremities. Coordination: Unable to assess. Speech: Unable to assess. Gait: Unable to assess. Musculoskeletal: Normal muscle bulk, no atrophy. Results & Data ([facility]) Vital Signs (Past 12 Hours) Vital Signs Temp Pulse Resp BP Pulse Ox O2 Del Method FiO2 02/27/22 14:57 100 H 28 H 97 30 02/27/22 13:00 37.5 C 101 H 20 96 02/27/22 13:00 107/61 02/27/22 12:00 37.6 C H 101 H 20 96 02/27/22 12:00 105/62 02/27/22 11:00 37.5 C 99 H 20 97 02/27/22 11:00 104/52 L 02/27/22 12:00 30 02/27/22 11:01 100 H 24 99 30 02/27/22 10:00 37.5 C 103 H 21 96 02/27/22 10:00 109/61 02/27/22 09:00 37.4 C 99 H 18 96 02/27/22 08:00 Mechanical Vent 02/27/22 08:00 Mechanical Vent 30 02/27/22 08:00 30 02/27/22 08:00 37.7 C H 97 H 23 97 02/27/22 07:30 37.6 C H 102 H 24 97 02/27/22 07:33 103 H 23 99 30 02/27/22 07:00 37.6 C H 98 H 23 113/62 95 Mechanical Vent 30 02/27/22 06:30 37.5 C 105 H 23 97 Mechanical Vent 30 02/27/22 06:00 37.4 C 97 H 23 119/68 96 Mechanical Vent 30 02/27/22 05:30 37.3 C 101 H 25 H 97 Mechanical Vent 30 02/27/22 05:00 37.1 C 100 H 23 119/70 96 Mechanical Vent 30 02/27/22 04:30 36.9 C 99 H 24 97 Mechanical Vent 30 02/27/22 03:59 27 H 30 02/27/22 04:00 36.7 C 96 H 23 128/92 98 Mechanical Vent 30 02/27/22 03:30 36.5 C 94 H 24 97 Mechanical Vent 30 02/27/22 04:00 30 Laboratory Results Laboratory Results - last 24 hr 02/26/22 02/26/22 02/26/22 18:39 18:39 18:39 WBC RBC Hgb POC Hgb Hct POC Hct MCV MCH MCHC RDW Std Deviation RDW Coeff of Ruth Ann Plt Count MPV Immature Gran % (Auto) Neut % (Auto) Lymph % (Auto) [place] % (Auto) Eos % (Auto) Baso % (Auto) Neut # (Auto) Lymph # (Auto) [place] # (Auto) Eos # (Auto) Baso # (Auto) Immature Gran # (Auto) RBC Morphology PT 10.8 INR 1.0 Sample Site POC pH POC pCO2 POC pO2 POC HCO3 POC Total CO2 POC Base Excess ABG pH ABG pH (Temp Correct) ABG pCO2 ABG pCO2 (Temp Corrct ABG pO2 POC ABG pO2 at Pt Temp ABG HCO3 POC ABG O2 Sat ABG O2 Saturation ABG Base Excess Dionte Test Oxygen Given O2 Delivery Device POC O2 Rate Minute Ventilation POC FiO2 Tidal Volume PEEP POC Sodium Sodium 141 POC Potassium Potassium 4.6 Chloride 103 Carbon Dioxide 17 L Anion Gap 21 H BUN 16 Creatinine 1.48 H Est Cr Clr Drug Dosing Not Reportable Est GFR ( Amer) 55.3 Est GFR (Non-Af Amer) 47.7 BUN/Creatinine Ratio 10.8 Glucose 69 L POC Glucose Lactate Calcium 9.9 Phosphorus Magnesium 3.2 H Total Bilirubin 0.3 AST 13 ALT 13 Alkaline Phosphatase 86 Total Creatine Kinase 102 Troponin I High Sens 4.7 Total Protein 7.6 Albumin 4.5 Globulin 3.1 Albumin/Globulin Ratio 1.5 Lipase 35 Procalcitonin TSH 15.260 H Free T4 0.66 Urine Color Urine Appearance Urine pH Ur Specific [place] Urine Protein Urine Glucose (UA) Urine Ketones Urine Blood Urine Nitrite Urine Bilirubin Urine Urobilinogen Ur Leukocyte Esterase Urine WBC (Auto) Urine RBC (Auto) U Hyaline Cast (Auto) U Epithel Cells (Auto) Urine Bacteria (Auto) Ur Renal Epithelial Cell Urine Test Nasal Screen MRSA (PCR) Salicylates Urine Opiates Screen Ur Methadone, Qual Acetaminophen Urine Barbiturates Ur Phencyclidine (PCP) U Amphetamines Confirm U Amphetamin/Meth Scrn U Methamphetamin Confrm Urine MDEA MDMA (Ecstasy) Screen MDMA Urine MDMA U Benzodiazepines Scrn Ur Cocaine Metabolite U Marijuana (THC) Screen Drug Screen Comment Ethyl Alcohol mg/dL Adenovirus (PCR) B. pertussis DNA (PCR) B.parapertussis DNA PCR C. pneumoniae DNA (PCR) Coronavirus OC43 (PCR) Coronavirus HKU1 (PCR) Coronavirus 229E (PCR) SARS-CoV-2 (PCR) Coronavirus NL63 (PCR) Human Metapneumovir PCR Influenza Type A (PCR) Influenza Type B (PCR) M. pneumoniae (PCR) Parainfluenza 1 (PCR) Parainfluenza 2 (PCR) Parainfluenza 3 (PCR) Parainfluenza 4 (PCR) RSV (PCR) Entero/Rhino (PCR) SARS-CoV-2, RNA, NAAT 02/26/22 02/26/22 02/26/22 18:39 18:39 18:39 WBC 29.20 H RBC 4.22 Hgb 13.5 POC Hgb Hct 43.0 POC Hct MCV 101.9 H MCH 32.0 MCHC 31.4 L RDW Std Deviation 45.7 RDW Coeff of Ruth Ann 12.1 Plt Count 377 MPV 10.1 Immature Gran % (Auto) 7.1 Neut % (Auto) 50.1 Lymph % (Auto) 35.1 [place] % (Auto) 6.6 Eos % (Auto) 0.6 Baso % (Auto) 0.5 Neut # (Auto) 14.62 H Lymph # (Auto) 10.25 H [place] # (Auto) 1.94 H Eos # (Auto) 0.17 Baso # (Auto) 0.14 Immature Gran # (Auto) 2.08 H RBC Morphology PT INR Sample Site POC pH POC pCO2 POC pO2 POC HCO3 POC Total CO2 POC Base Excess ABG pH ABG pH (Temp Correct) ABG pCO2 ABG pCO2 (Temp Corrct ABG pO2 POC ABG pO2 at Pt Temp ABG HCO3 POC ABG O2 Sat ABG O2 Saturation ABG Base Excess Dionte Test Oxygen Given O2 Delivery Device POC O2 Rate Minute Ventilation POC FiO2 Tidal Volume PEEP POC Sodium Sodium POC Potassium Potassium Chloride Carbon Dioxide Anion Gap BUN Creatinine Est Cr Clr Drug Dosing Est GFR ( Amer) Est GFR (Non-Af Amer) BUN/Creatinine Ratio Glucose POC Glucose Lactate Calcium Phosphorus Magnesium Total Bilirubin AST ALT Alkaline Phosphatase Total Creatine Kinase Troponin I High Sens Total Protein Albumin Globulin Albumin/Globulin Ratio Lipase Procalcitonin TSH Free T4 Urine Color Urine Appearance Urine pH Ur Specific [place] Urine Protein Urine Glucose (UA) Urine Ketones Urine Blood Urine Nitrite Urine Bilirubin Urine Urobilinogen Ur Leukocyte Esterase Urine WBC (Auto) Urine RBC (Auto) U Hyaline Cast (Auto) U Epithel Cells (Auto) Urine Bacteria (Auto) Ur Renal Epithelial Cell Urine Test Nasal Screen MRSA (PCR) Salicylates < 3.0 L Urine Opiates Screen Ur Methadone, Qual Acetaminophen < 3 L Urine Barbiturates Ur Phencyclidine (PCP) U Amphetamines Confirm U Amphetamin/Meth Scrn U Methamphetamin Confrm Urine MDEA MDMA (Ecstasy) Screen MDMA Urine MDMA U Benzodiazepines Scrn Ur Cocaine Metabolite U Marijuana (THC) Screen Drug Screen Comment Ethyl Alcohol mg/dL < 10.0 Adenovirus (PCR) B. pertussis DNA (PCR) B.parapertussis DNA PCR C. pneumoniae DNA (PCR) Coronavirus OC43 (PCR) Coronavirus HKU1 (PCR) Coronavirus 229E (PCR) SARS-CoV-2 (PCR) Coronavirus NL63 (PCR) Human Metapneumovir PCR Influenza Type A (PCR) Influenza Type B (PCR) M. pneumoniae (PCR) Parainfluenza 1 (PCR) Parainfluenza 2 (PCR) Parainfluenza 3 (PCR) Parainfluenza 4 (PCR) RSV (PCR) Entero/Rhino (PCR) SARS-CoV-2, RNA, NAAT 02/26/22 02/26/22 02/26/22 18:39 18:39 18:40 WBC RBC Hgb POC Hgb Hct POC Hct MCV MCH MCHC RDW Std Deviation RDW Coeff of Ruth Ann Plt Count MPV Immature Gran % (Auto) Neut % (Auto) Lymph % (Auto) [place] % (Auto) Eos % (Auto) Baso % (Auto) Neut # (Auto) Lymph # (Auto) [place] # (Auto) Eos # (Auto) Baso # (Auto) Immature Gran # (Auto) RBC Morphology PT INR Sample Site POC pH POC pCO2 POC pO2 POC HCO3 POC Total CO2 POC Base Excess ABG pH ABG pH (Temp Correct) ABG pCO2 ABG pCO2 (Temp Corrct ABG pO2 POC ABG pO2 at Pt Temp ABG HCO3 POC ABG O2 Sat ABG O2 Saturation ABG Base Excess Dionte Test Oxygen Given O2 Delivery Device POC O2 Rate Minute Ventilation POC FiO2 Tidal Volume PEEP POC Sodium Sodium POC Potassium Potassium Chloride Carbon Dioxide Anion Gap BUN Creatinine Est Cr Clr Drug Dosing Est GFR ( Amer) Est GFR (Non-Af Amer) BUN/Creatinine Ratio Glucose POC Glucose Lactate 17.9 H* Calcium Phosphorus Magnesium Total Bilirubin AST ALT Alkaline Phosphatase Total Creatine Kinase Troponin I High Sens Total Protein Albumin Globulin Albumin/Globulin Ratio Lipase Procalcitonin 0.10 TSH Free T4 Urine Color Yellow Urine Appearance Clear Urine pH 5.0 Ur Specific [place] 1.013 Urine Protein Negative Urine Glucose (UA) Negative Urine Ketones 1+ H Urine Blood Trace H Urine Nitrite Negative Urine Bilirubin Negative Urine Urobilinogen Negative Ur Leukocyte Esterase Negative Urine WBC (Auto) 1-5 Urine RBC (Auto) 0-4 U Hyaline Cast (Auto) 5-10 H U Epithel Cells (Auto) >30 H Urine Bacteria (Auto) 1+ H Ur Renal Epithelial Cell Not Reportable Urine Test Nasal Screen MRSA (PCR) Salicylates Urine Opiates Screen Ur Methadone, Qual Acetaminophen Urine Barbiturates Ur Phencyclidine (PCP) U Amphetamines Confirm U Amphetamin/Meth Scrn U Methamphetamin Confrm Urine MDEA MDMA (Ecstasy) Screen MDMA Urine MDMA U Benzodiazepines Scrn Ur Cocaine Metabolite U Marijuana (THC) Screen Drug Screen Comment Ethyl Alcohol mg/dL Adenovirus (PCR) B. pertussis DNA (PCR) B.parapertussis DNA PCR C. pneumoniae DNA (PCR) Coronavirus OC43 (PCR) Coronavirus HKU1 (PCR) Coronavirus 229E (PCR) SARS-CoV-2 (PCR) Coronavirus NL63 (PCR) Human Metapneumovir PCR Influenza Type A (PCR) Influenza Type B (PCR) M. pneumoniae (PCR) Parainfluenza 1 (PCR) Parainfluenza 2 (PCR) Parainfluenza 3 (PCR) Parainfluenza 4 (PCR) RSV (PCR) Entero/Rhino (PCR) SARS-CoV-2, RNA, NAAT 02/26/22 02/26/22 02/26/22 18:40 18:40 18:40 WBC RBC Hgb POC Hgb Hct POC Hct MCV MCH MCHC RDW Std Deviation RDW Coeff of Ruth Ann Plt Count MPV Immature Gran % (Auto) Neut % (Auto) Lymph % (Auto) [place] % (Auto) Eos % (Auto) Baso % (Auto) Neut # (Auto) Lymph # (Auto) [place] # (Auto) Eos # (Auto) Baso # (Auto) Immature Gran # (Auto) RBC Morphology PT INR Sample Site POC pH POC pCO2 POC pO2 POC HCO3 POC Total CO2 POC Base Excess ABG pH ABG pH (Temp Correct) ABG pCO2 ABG pCO2 (Temp Corrct ABG pO2 POC ABG pO2 at Pt Temp ABG HCO3 POC ABG O2 Sat ABG O2 Saturation ABG Base Excess Dionte Test Oxygen Given O2 Delivery Device POC O2 Rate Minute Ventilation POC FiO2 Tidal Volume PEEP POC Sodium Sodium POC Potassium Potassium Chloride Carbon Dioxide Anion Gap BUN Creatinine Est Cr Clr Drug Dosing Est GFR ( Amer) Est GFR (Non-Af Amer) BUN/Creatinine Ratio Glucose POC Glucose Lactate Calcium Phosphorus Magnesium Total Bilirubin AST ALT Alkaline Phosphatase Total Creatine Kinase Troponin I High Sens Total Protein Albumin Globulin Albumin/Globulin Ratio Lipase Procalcitonin TSH Free T4 Urine Color Urine Appearance Urine pH Ur Specific [place] Urine Protein Urine Glucose (UA) Urine Ketones Urine Blood Urine Nitrite Urine Bilirubin Urine Urobilinogen Ur Leukocyte Esterase Urine WBC (Auto) Urine RBC (Auto) U Hyaline Cast (Auto) U Epithel Cells (Auto) Urine Bacteria (Auto) Ur Renal Epithelial Cell Urine Test Negative Nasal Screen MRSA (PCR) Salicylates Urine Opiates Screen Neg Ur Methadone, Qual Neg Acetaminophen Urine Barbiturates Neg Ur Phencyclidine (PCP) Neg U Amphetamines Confirm Pending U Amphetamin/Meth Scrn Pos H U Methamphetamin Confrm Pending Urine MDEA Pending MDMA (Ecstasy) Screen Pos H MDMA Pending Urine MDMA Pending U Benzodiazepines Scrn Neg Ur Cocaine Metabolite Neg U Marijuana (THC) Screen Neg Drug Screen Comment Pending Ethyl Alcohol mg/dL Adenovirus (PCR) B. pertussis DNA (PCR) B.parapertussis DNA PCR C. pneumoniae DNA (PCR) Coronavirus OC43 (PCR) Coronavirus HKU1 (PCR) Coronavirus 229E (PCR) SARS-CoV-2 (PCR) Coronavirus NL63 (PCR) Human Metapneumovir PCR Influenza Type A (PCR) Influenza Type B (PCR) M. pneumoniae (PCR) Parainfluenza 1 (PCR) Parainfluenza 2 (PCR) Parainfluenza 3 (PCR) Parainfluenza 4 (PCR) RSV (PCR) Entero/Rhino (PCR) SARS-CoV-2, RNA, NAAT 02/26/22 02/26/22 02/26/22 19:06 19:21 19:41 WBC RBC Hgb POC Hgb Hct POC Hct MCV MCH MCHC RDW Std Deviation RDW Coeff of Ruth Ann Plt Count MPV Immature Gran % (Auto) Neut % (Auto) Lymph % (Auto) [place] % (Auto) Eos % (Auto) Baso % (Auto) Neut # (Auto) Lymph # (Auto) [place] # (Auto) Eos # (Auto) Baso # (Auto) Immature Gran # (Auto) RBC Morphology PT INR Sample Site POC pH POC pCO2 POC pO2 POC HCO3 POC Total CO2 POC Base Excess ABG pH ABG pH (Temp Correct) ABG pCO2 ABG pCO2 (Temp Corrct ABG pO2 POC ABG pO2 at Pt Temp ABG HCO3 POC ABG O2 Sat ABG O2 Saturation ABG Base Excess Dionte Test Oxygen Given O2 Delivery Device POC O2 Rate Minute Ventilation POC FiO2 Tidal Volume PEEP POC Sodium Sodium POC Potassium Potassium Chloride Carbon Dioxide Anion Gap BUN Creatinine Est Cr Clr Drug Dosing Est GFR ( Amer) Est GFR (Non-Af Amer) BUN/Creatinine Ratio Glucose POC Glucose 63 L* Lactate Calcium Phosphorus Magnesium Total Bilirubin AST ALT Alkaline Phosphatase Total Creatine Kinase Troponin I High Sens Total Protein Albumin Globulin Albumin/Globulin Ratio Lipase Procalcitonin TSH Free T4 Urine Color Urine Appearance Urine pH Ur Specific [place] Urine Protein Urine Glucose (UA) Urine Ketones Urine Blood Urine Nitrite Urine Bilirubin Urine Urobilinogen Ur Leukocyte Esterase Urine WBC (Auto) Urine RBC (Auto) U Hyaline Cast (Auto) U Epithel Cells (Auto) Urine Bacteria (Auto) Ur Renal Epithelial Cell Urine Test Nasal Screen MRSA (PCR) Salicylates Urine Opiates Screen Ur Methadone, Qual Acetaminophen Urine Barbiturates Ur Phencyclidine (PCP) U Amphetamines Confirm U Amphetamin/Meth Scrn U Methamphetamin Confrm Urine MDEA MDMA (Ecstasy) Screen MDMA Urine MDMA U Benzodiazepines Scrn Ur Cocaine Metabolite U Marijuana (THC) Screen Drug Screen Comment Ethyl Alcohol mg/dL Adenovirus (PCR) Not Detected B. pertussis DNA (PCR) Not Detected B.parapertussis DNA PCR Not Detected C. pneumoniae DNA (PCR) Not Detected Coronavirus OC43 (PCR) Not Detected Coronavirus HKU1 (PCR) Not Detected Coronavirus 229E (PCR) Not Detected SARS-CoV-2 (PCR) Not Detected Coronavirus NL63 (PCR) Not Detected Human Metapneumovir PCR Not Detected Influenza Type A (PCR) Not Detected Influenza Type B (PCR) Not Detected M. pneumoniae (PCR) Not Detected Parainfluenza 1 (PCR) Not Detected Parainfluenza 2 (PCR) Not Detected Parainfluenza 3 (PCR) Not Detected Parainfluenza 4 (PCR) Not Detected RSV (PCR) Not Detected Entero/Rhino (PCR) Not Detected SARS-CoV-2, RNA, NAAT NEGATIVE 02/26/22 02/26/22 02/26/22 20:21 20:27 20:50 WBC RBC Hgb POC Hgb Hct POC Hct MCV MCH MCHC RDW Std Deviation RDW Coeff of Ruth Ann Plt Count MPV Immature Gran % (Auto) Neut % (Auto) Lymph % (Auto) [place] % (Auto) Eos % (Auto) Baso % (Auto) Neut # (Auto) Lymph # (Auto) [place] # (Auto) Eos # (Auto) Baso # (Auto) Immature Gran # (Auto) RBC Morphology PT INR Sample Site POC pH POC pCO2 POC pO2 POC HCO3 POC Total CO2 POC Base Excess ABG pH 7.34 L ABG pH (Temp Correct) ABG pCO2 37 ABG pCO2 (Temp Corrct ABG pO2 67 L POC ABG pO2 at Pt Temp ABG HCO3 20 POC ABG O2 Sat ABG O2 Saturation 94.5 ABG Base Excess -5.2 Dionte Test Pos Oxygen Given 50% O2 Delivery Device POC O2 Rate Minute Ventilation POC FiO2 Tidal Volume PEEP POC Sodium Sodium POC Potassium Potassium Chloride Carbon Dioxide Anion Gap BUN Creatinine Est Cr Clr Drug Dosing Est GFR ( Amer) Est GFR (Non-Af Amer) BUN/Creatinine Ratio Glucose POC Glucose 95 Lactate 2.8 H* Calcium Phosphorus Magnesium Total Bilirubin AST ALT Alkaline Phosphatase Total Creatine Kinase Troponin I High Sens Total Protein Albumin Globulin Albumin/Globulin Ratio Lipase Procalcitonin TSH Free T4 Urine Color Urine Appearance Urine pH Ur Specific [place] Urine Protein Urine Glucose (UA) Urine Ketones Urine Blood Urine Nitrite Urine Bilirubin Urine Urobilinogen Ur Leukocyte Esterase Urine WBC (Auto) Urine RBC (Auto) U Hyaline Cast (Auto) U Epithel Cells (Auto) Urine Bacteria (Auto) Ur Renal Epithelial Cell Urine Test Nasal Screen MRSA (PCR) Salicylates Urine Opiates Screen Ur Methadone, Qual Acetaminophen Urine Barbiturates Ur Phencyclidine (PCP) U Amphetamines Confirm U Amphetamin/Meth Scrn U Methamphetamin Confrm Urine MDEA MDMA (Ecstasy) Screen MDMA Urine MDMA U Benzodiazepines Scrn Ur Cocaine Metabolite U Marijuana (THC) Screen Drug Screen Comment Ethyl Alcohol mg/dL Adenovirus (PCR) B. pertussis DNA (PCR) B.parapertussis DNA PCR C. pneumoniae DNA (PCR) Coronavirus OC43 (PCR) Coronavirus HKU1 (PCR) Coronavirus 229E (PCR) SARS-CoV-2 (PCR) Coronavirus NL63 (PCR) Human Metapneumovir PCR Influenza Type A (PCR) Influenza Type B (PCR) M. pneumoniae (PCR) Parainfluenza 1 (PCR) Parainfluenza 2 (PCR) Parainfluenza 3 (PCR) Parainfluenza 4 (PCR) RSV (PCR) Entero/Rhino (PCR) SARS-CoV-2, RNA, NAAT 02/26/22 02/26/22 02/26/22 23:00 23:51 23:56 WBC RBC Hgb POC Hgb 10.9 L Hct POC Hct 32 L MCV MCH MCHC RDW Std Deviation RDW Coeff of Ruth Ann Plt Count MPV Immature Gran % (Auto) Neut % (Auto) Lymph % (Auto) [place] % (Auto) Eos % (Auto) Baso % (Auto) Neut # (Auto) Lymph # (Auto) [place] # (Auto) Eos # (Auto) Baso # (Auto) Immature Gran # (Auto) RBC Morphology PT INR Sample Site Art Line POC pH 7.43 POC pCO2 28 L POC pO2 87 POC HCO3 19 POC Total CO2 19 L POC Base Excess -6.0 ABG pH ABG pH (Temp Correct) 7.450 ABG pCO2 ABG pCO2 (Temp Corrct 26 L ABG pO2 POC ABG pO2 at Pt Temp 80 ABG HCO3 POC ABG O2 Sat 97.0 H ABG O2 Saturation ABG Base Excess Dionte Test NA Oxygen Given O2 Delivery Device Ventilator POC O2 Rate 28 Minute Ventilation 11.2 POC FiO2 40 Tidal Volume 400 PEEP 5 POC Sodium 147 H Sodium POC Potassium 3.0 L Potassium Chloride Carbon Dioxide Anion Gap BUN Creatinine Est Cr Clr Drug Dosing Est GFR ( Amer) Est GFR (Non-Af Amer) BUN/Creatinine Ratio Glucose POC Glucose 158 H Lactate Calcium Phosphorus Magnesium Total Bilirubin AST ALT Alkaline Phosphatase Total Creatine Kinase Troponin I High Sens Total Protein Albumin Globulin Albumin/Globulin Ratio Lipase Procalcitonin TSH Free T4 Urine Color Urine Appearance Urine pH Ur Specific [place] Urine Protein Urine Glucose (UA) Urine Ketones Urine Blood Urine Nitrite Urine Bilirubin Urine Urobilinogen Ur Leukocyte Esterase Urine WBC (Auto) Urine RBC (Auto) U Hyaline Cast (Auto) U Epithel Cells (Auto) Urine Bacteria (Auto) Ur Renal Epithelial Cell Urine Test Nasal Screen MRSA (PCR) Negative Salicylates Urine Opiates Screen Ur Methadone, Qual Acetaminophen Urine Barbiturates Ur Phencyclidine (PCP) U Amphetamines Confirm U Amphetamin/Meth Scrn U Methamphetamin Confrm Urine MDEA MDMA (Ecstasy) Screen MDMA Urine MDMA U Benzodiazepines Scrn Ur Cocaine Metabolite U Marijuana (THC) Screen Drug Screen Comment Ethyl Alcohol mg/dL Adenovirus (PCR) B. pertussis DNA (PCR) B.parapertussis DNA PCR C. pneumoniae DNA (PCR) Coronavirus OC43 (PCR) Coronavirus HKU1 (PCR) Coronavirus 229E (PCR) SARS-CoV-2 (PCR) Coronavirus NL63 (PCR) Human Metapneumovir PCR Influenza Type A (PCR) Influenza Type B (PCR) M. pneumoniae (PCR) Parainfluenza 1 (PCR) Parainfluenza 2 (PCR) Parainfluenza 3 (PCR) Parainfluenza 4 (PCR) RSV (PCR) Entero/Rhino (PCR) SARS-CoV-2, RNA, NAAT 02/27/22 02/27/22 02/27/22 00:29 00:29 05:00 WBC 11.04 H D RBC 3.65 L Hgb 11.6 L POC Hgb Hct 32.8 L POC Hct MCV 89.9 D MCH 31.8 MCHC 35.4 D RDW Std Deviation 40.6 RDW Coeff of Ruth Ann 12.3 Plt Count 237 MPV 9.9 Immature Gran % (Auto) 1.1 Neut % (Auto) 91.5 Lymph % (Auto) 4.3 [place] % (Auto) 3.0 Eos % (Auto) 0.0 Baso % (Auto) 0.1 Neut # (Auto) 10.11 H Lymph # (Auto) 0.47 L [place] # (Auto) 0.33 Eos # (Auto) 0.00 Baso # (Auto) 0.01 Immature Gran # (Auto) 0.12 H RBC Morphology Unremarkable PT INR Sample Site POC pH POC pCO2 POC pO2 POC HCO3 POC Total CO2 POC Base Excess ABG pH ABG pH (Temp Correct) ABG pCO2 ABG pCO2 (Temp Corrct ABG pO2 POC ABG pO2 at Pt Temp ABG HCO3 POC ABG O2 Sat ABG O2 Saturation ABG Base Excess Dionte Test Oxygen Given O2 Delivery Device POC O2 Rate Minute Ventilation POC FiO2 Tidal Volume PEEP POC Sodium Sodium 138 POC Potassium Potassium 3.2 L D Chloride 109 H Carbon Dioxide 22 Anion Gap 7 BUN 13 Creatinine 0.99 D Est Cr Clr Drug Dosing 106.7 Est GFR ( Amer) 89.9 Est GFR (Non-Af Amer) 77.6 BUN/Creatinine Ratio 13.1 Glucose 159 H POC Glucose Lactate 1.1 Calcium 7.4 L D Phosphorus Magnesium 2.4 Total Bilirubin AST ALT Alkaline Phosphatase Total Creatine Kinase Troponin I High Sens Total Protein Albumin Globulin Albumin/Globulin Ratio Lipase Procalcitonin TSH Free T4 Urine Color Urine Appearance Urine pH Ur Specific [place] Urine Protein Urine Glucose (UA) Urine Ketones Urine Blood Urine Nitrite Urine Bilirubin Urine Urobilinogen Ur Leukocyte Esterase Urine WBC (Auto) Urine RBC (Auto) U Hyaline Cast (Auto) U Epithel Cells (Auto) Urine Bacteria (Auto) Ur Renal Epithelial Cell Urine Test Nasal Screen MRSA (PCR) Salicylates Urine Opiates Screen Ur Methadone, Qual Acetaminophen Urine Barbiturates Ur Phencyclidine (PCP) U Amphetamines Confirm U Amphetamin/Meth Scrn U Methamphetamin Confrm Urine MDEA MDMA (Ecstasy) Screen MDMA Urine MDMA U Benzodiazepines Scrn Ur Cocaine Metabolite U Marijuana (THC) Screen Drug Screen Comment Ethyl Alcohol mg/dL Adenovirus (PCR) B. pertussis DNA (PCR) B.parapertussis DNA PCR C. pneumoniae DNA (PCR) Coronavirus OC43 (PCR) Coronavirus HKU1 (PCR) Coronavirus 229E (PCR) SARS-CoV-2 (PCR) Coronavirus NL63 (PCR) Human Metapneumovir PCR Influenza Type A (PCR) Influenza Type B (PCR) M. pneumoniae (PCR) Parainfluenza 1 (PCR) Parainfluenza 2 (PCR) Parainfluenza 3 (PCR) Parainfluenza 4 (PCR) RSV (PCR) Entero/Rhino (PCR) SARS-CoV-2, RNA, NAAT 02/27/22 02/27/22 02/27/22 05:00 05:03 05:05 WBC RBC Hgb POC Hgb 12.2 Hct POC Hct 36 L MCV MCH MCHC RDW Std Deviation RDW Coeff of Ruth Ann Plt Count MPV Immature Gran % (Auto) Neut % (Auto) Lymph % (Auto) [place] % (Auto) Eos % (Auto) Baso % (Auto) Neut # (Auto) Lymph # (Auto) [place] # (Auto) Eos # (Auto) Baso # (Auto) Immature Gran # (Auto) RBC Morphology PT INR Sample Site Art Line POC pH 7.43 POC pCO2 35 POC pO2 100 H POC HCO3 23 POC Total CO2 24 POC Base Excess -1.0 ABG pH ABG pH (Temp Correct) 7.433 ABG pCO2 ABG pCO2 (Temp Corrct 35 ABG pO2 POC ABG pO2 at Pt Temp 101 ABG HCO3 POC ABG O2 Sat 98.0 H ABG O2 Saturation ABG Base Excess Dionte Test NA Oxygen Given O2 Delivery Device Ventilator POC O2 Rate 23 Minute Ventilation 8 POC FiO2 30 Tidal Volume 350 PEEP 5 POC Sodium 144 Sodium 137 POC Potassium 3.3 Potassium 3.3 L Chloride 106 Carbon Dioxide 24 Anion Gap 7 BUN 11 Creatinine 0.86 Est Cr Clr Drug Dosing 122.8 Est GFR ( Amer) 106.6 Est GFR (Non-Af Amer) 91.9 BUN/Creatinine Ratio 12.8 Glucose 183 H POC Glucose 192 H Lactate Calcium 7.4 L Phosphorus Magnesium 2.3 Total Bilirubin AST ALT Alkaline Phosphatase Total Creatine Kinase Troponin I High Sens Total Protein Albumin Globulin Albumin/Globulin Ratio Lipase Procalcitonin TSH Free T4 Urine Color Urine Appearance Urine pH Ur Specific [place] Urine Protein Urine Glucose (UA) Urine Ketones Urine Blood Urine Nitrite Urine Bilirubin Urine Urobilinogen Ur Leukocyte Esterase Urine WBC (Auto) Urine RBC (Auto) U Hyaline Cast (Auto) U Epithel Cells (Auto) Urine Bacteria (Auto) Ur Renal Epithelial Cell Urine Test Nasal Screen MRSA (PCR) Salicylates Urine Opiates Screen Ur Methadone, Qual Acetaminophen Urine Barbiturates Ur Phencyclidine (PCP) U Amphetamines Confirm U Amphetamin/Meth Scrn U Methamphetamin Confrm Urine MDEA MDMA (Ecstasy) Screen MDMA Urine MDMA U Benzodiazepines Scrn Ur Cocaine Metabolite U Marijuana (THC) Screen Drug Screen Comment Ethyl Alcohol mg/dL Adenovirus (PCR) B. pertussis DNA (PCR) B.parapertussis DNA PCR C. pneumoniae DNA (PCR) Coronavirus OC43 (PCR) Coronavirus HKU1 (PCR) Coronavirus 229E (PCR) SARS-CoV-2 (PCR) Coronavirus NL63 (PCR) Human Metapneumovir PCR Influenza Type A (PCR) Influenza Type B (PCR) M. pneumoniae (PCR) Parainfluenza 1 (PCR) Parainfluenza 2 (PCR) Parainfluenza 3 (PCR) Parainfluenza 4 (PCR) RSV (PCR) Entero/Rhino (PCR) SARS-CoV-2, RNA, NAAT 02/27/22 02/27/22 02/27/22 11:34 12:39 12:39 WBC RBC Hgb POC Hgb Hct POC Hct MCV MCH MCHC RDW Std Deviation RDW Coeff of Ruth Ann Plt Count MPV Immature Gran % (Auto) Neut % (Auto) Lymph % (Auto) [place] % (Auto) Eos % (Auto) Baso % (Auto) Neut # (Auto) Lymph # (Auto) [place] # (Auto) Eos # (Auto) Baso # (Auto) Immature Gran # (Auto) RBC Morphology PT INR Sample Site POC pH POC pCO2 POC pO2 POC HCO3 POC Total CO2 POC Base Excess ABG pH ABG pH (Temp Correct) ABG pCO2 ABG pCO2 (Temp Corrct ABG pO2 POC ABG pO2 at Pt Temp ABG HCO3 POC ABG O2 Sat ABG O2 Saturation ABG Base Excess Dionte Test Oxygen Given O2 Delivery Device POC O2 Rate Minute Ventilation POC FiO2 Tidal Volume PEEP POC Sodium Sodium 139 POC Potassium Potassium 3.8 Chloride 108 H Carbon Dioxide 24 Anion Gap 7 BUN 8 Creatinine 0.76 Est Cr Clr Drug Dosing 139.6 Est GFR ( Amer) 123.7 Est GFR (Non-Af Amer) 106.8 BUN/Creatinine Ratio 10.5 Glucose 96 POC Glucose 102 H Lactate Calcium 7.4 L Phosphorus 3.3 Magnesium 2.1 Total Bilirubin AST ALT Alkaline Phosphatase Total Creatine Kinase Troponin I High Sens Total Protein Albumin Globulin Albumin/Globulin Ratio Lipase Procalcitonin TSH Free T4 Urine Color Urine Appearance Urine pH Ur Specific [place] Urine Protein Urine Glucose (UA) Urine Ketones Urine Blood Urine Nitrite Urine Bilirubin Urine Urobilinogen Ur Leukocyte Esterase Urine WBC (Auto) Urine RBC (Auto) U Hyaline Cast (Auto) U Epithel Cells (Auto) Urine Bacteria (Auto) Ur Renal Epithelial Cell Urine Test Nasal Screen MRSA (PCR) Salicylates Urine Opiates Screen Ur Methadone, Qual Acetaminophen Urine Barbiturates Ur Phencyclidine (PCP) U Amphetamines Confirm U Amphetamin/Meth Scrn U Methamphetamin Confrm Urine MDEA MDMA (Ecstasy) Screen MDMA Urine MDMA U Benzodiazepines Scrn Ur Cocaine Metabolite U Marijuana (THC) Screen Drug Screen Comment Ethyl Alcohol mg/dL Adenovirus (PCR) B. pertussis DNA (PCR) B.parapertussis DNA PCR C. pneumoniae DNA (PCR) Coronavirus OC43 (PCR) Coronavirus HKU1 (PCR) Coronavirus 229E (PCR) SARS-CoV-2 (PCR) Coronavirus NL63 (PCR) Human Metapneumovir PCR Influenza Type A (PCR) Influenza Type B (PCR) M. pneumoniae (PCR) Parainfluenza 1 (PCR) Parainfluenza 2 (PCR) Parainfluenza 3 (PCR) Parainfluenza 4 (PCR) RSV (PCR) Entero/Rhino (PCR) SARS-CoV-2, RNA, NAAT Diagnostic Findings Head CT 02/26/22 18:40 CT OF THE HEAD WITHOUT CONTRAST CLINICAL HISTORY: od, unresponsive COMPARISON STUDY: No previous studies for comparison. CT DOSE: 884.08 mGy.cm TECHNIQUE: Helical axial images of the head were obtained without IV contrast. Automated exposure control was utilized for the study. A dose lowering technique was utilized adhering to the principles of ALARA. FINDINGS: No acute intracranial hemorrhage, midline shift or mass effect is present. The ventricular system is unremarkable. The basal cisterns are patent. No extra-axial collections are present. There are no findings to suggest acute dural sinus thrombosis or acute territorial infarct. No significant calvarial abnormalities are present. Visualized portions of the sinuses and mastoid air cells are clear. Secretions within the nasopharynx are likely related to intubation. IMPRESSION: No acute intracranial findings. ACT 112: Negative or not required by law. Electronically signed by: Eric Figueroa M.D. 02/26/2022 8:25 PM Chest X-Ray 02/26/22 18:41 SUPINE PORTABLE AP CHEST RADIOGRAPH CLINICAL HISTORY: od, s/p ETT COMPARISON STUDY: No previous studies for comparison. FINDINGS: The tip of the endotracheal tube is 1.4 cm above the honorio. Tip of nasogastric tube is at least within the body of the stomach. No pneumothorax is identified on supine exam. No pleural effusion is present. Pulmonary vascularity is normal. Cardiomediastinal silhouette is unremarkable. Subtle interstitial thickening and possible patchy airspace opacities are present. IMPRESSION: 1. Tip of endotracheal tube 1.4 cm above the honorio. 2. Subtle interstitial thickening and possible patchy bilateral airspace opacities. An infectious process or aspiration cannot be excluded. ACT 112: Negative or not required by law. Electronically signed by: Eric Figueroa M.D. 02/26/2022 7:05 PM Chest X-Ray 02/26/22 19:45 SUPINE PORTABLE AP CHEST RADIOGRAPH CLINICAL HISTORY: central line placement COMPARISON STUDY: Chest radiograph performed earlier today. FINDINGS: Tip of endotracheal tube is 2.8 cm above the honorio. Tip of nasogastric tube is within the gastric antrum. There is an equivocal trace right apical pneumothorax. Tip of right internal jugular central line projects over the cavoatrial junction. This is probably artifactual. Interstitial thickening and bilateral opacities have increased. Cardiac size is normal. IMPRESSION: 1. Equivocal trace right apical pneumothorax. This is probably artifactual however a short-term follow-up upright chest radiograph is recommended. 2. Increase in bilateral airspace opacities and interstitial thickening. The findings could reflect pneumonia or aspiration pneumonitis. Although less likely, pulmonary edema could appear similar. ACT 112: Negative or not required by law. Electronically signed by: Eric Figueroa M.D. 02/26/2022 8:20 PM Chest X-Ray 02/26/22 23:09 SINGLE VIEW CHEST CLINICAL HISTORY: Reassess possible pneumothorax. FINDINGS: An AP, portable, semierect chest radiograph is compared to study dated 02/26/2022. The examination is degraded by portable technique and patient rotation. An endotracheal tube, an enteric tube, and a right internal jugular central venous catheter are unchanged in position. The cardiomediastinal silhouette is unremarkable. There is near-complete atelectasis of the right upper lobe, with corresponding volume loss in the right lung. The left lung appears clear. No large pleural effusion or pneumothorax is seen. The bony thorax is grossly intact. IMPRESSION: 1. Stable lines and tubes. 2. There is near complete atelectasis of the right upper lobe. This has significantly progressed as compared to today's earlier examination. 3. No pneumothorax is seen. ACT 112: Negative or not required by law. Electronically signed by: Caesar John M.D. 02/27/2022 7:[address] 02/27/22 00:11 CT SCAN OF THE CHEST WITHOUT IV CONTRAST CLINICAL HISTORY: Lobar atelectasis. COMPARISON STUDY: Chest radiographs performed earlier the same day 02/26/2022. TECHNIQUE: CT scan of the thorax was performed from the thoracic inlet to the upper abdomen. Images are reviewed in the axial, sagittal, and coronal planes. IV contrast was not administered for this examination as per the referring clinician. A dose lowering technique was utilized adhering to the principles of ALARA. The examination is degraded by motion artifact, as well as by streak artifact from the arms which could not be elevated above the chest. CT DOSE: 847.52 mGy.cm FINDINGS: Thyroid: Imaged portions of the thyroid gland are normal in size and attenuation. Thoracic aorta: The thoracic aorta is normal in caliber and demonstrates standard 3-vessel arch anatomy. Heart: A right internal jugular central venous catheter is in place. The heart is top normal in size and without pericardial effusion. Lungs and pleural spaces: An endotracheal tube terminates above the honorio. There is near-complete atelectasis/consolidation of the right upper lobe with associated volume loss in the right lung. There are small pleural effusions with dependent consolidation. No pneumothorax is seen. Mediastinum: There is no mediastinal lymphadenopathy. [place]: Not well assessed without IV contrast. Axillae: There is no axillary lymphadenopathy. Upper abdomen: An enteric tube is in place. This extends below the diaphragm into the stomach. Partially visualized upper abdominal viscera is within normal limits. Skeletal structures: No lytic or blastic bony lesions are seen. IMPRESSION: 1. There is near complete atelectasis/consolidation throughout the right upper lobe. This has progressed from today's earlier chest radiograph. 2. Small pleural effusions with dependent consolidation. Correlate clinically for evidence of pneumonia/aspiration pneumonitis. 3. No pneumothorax is seen. 4. Lines and tubes as above. ACT 112: Negative or not required by law. Electronically signed by: Caesar John M.D. 02/27/2022 8:48 AM Chest X-Ray 02/27/22 07:50 XR chest 1V portable HISTORY: Respiratory failure. Follow-up. COMPARISON: Chest 02/26/2022. FINDINGS: The right upper lobe atelectasis has almost completely resolved in the interval. No pneumothorax. There are low lung volumes. The heart is mildly enlarged. No new focal lung consolidations. No evidence for pulmonary edema. Stable lines and tubes with the endotracheal tube terminating approximately 4 cm from the honorio. IMPRESSION: 1. Stable lines/tubes. 2. Near-complete resolution of the right upper lobe atelectasis. ACT 112: Negative or not required by law. Electronically signed by: Rashi Huston M.D. 02/27/2022 8:14 AM
[2022-02-27] MEDS ORDERED: POTASSIUM CHLORIDE 20 MEQ/15 ML UDC NG STA (15:47)
[2022-02-27 16:38] LABS: iSTAT Arterial Blood Gas HCO3 19 meg/L (19-24); iSTAT Arterial Blood Gas pCO2 37 mmHg (35-46); iSTAT Arterial Blood Gas pH 7.32 (7.35-7.45); iSTAT Arterial Blood Gas pO2 91 mmHg (80-95); iSTAT Carbon Dioxide 20 mmol/L (24-31)
[2022-02-27 16:39] LABS: iSTAT Sample Type Arterial
[2022-02-27 16:42] LABS: iSTAT Arterial Blood Gas HCO3 14 meg/L (19-24); iSTAT Arterial Blood Gas pCO2 74 mmHg (35-46); iSTAT Arterial Blood Gas pH 6.68 (7.35-7.45); iSTAT Arterial Blood Gas pO2 232 mmHg (80-95); iSTAT Carbon Dioxide 16 mmol/L (24-31)
[2022-02-27 16:43] LABS: iSTAT Sample Type Arterial
[2022-02-27 19:13] LABS: BUN Creatinine Ratio 8.5 (10-20); Calcium 7.3 mg/dl (8.5-10.1); Creatinine Clr Calc Pharmacy 149.5 ml/min; Est GFR (African American) 134.3 ml/min; Est GFR (Non-African American) 115.9 ml/min; Magnesium 2.1 mg/dl (1.7-2.4)
[2022-02-27 23:13] LABS: BUN Creatinine Ratio 9.2 (10-20); Calcium 7.6 mg/dl (8.5-10.1); Creatinine Clr Calc Pharmacy 163.3 ml/min; Est GFR (Non-African American) 120.8 ml/min
[2022-02-28] MEDS: Patient's ALLERGY Info needs ENTERED SCH ×2 (00:24→12:46)
[2022-02-28] MEDS: AMPICILLIN/SULBACTAM SOD 3,000 MG in 0.9 % SODIUM CHLORIDE 100 ML IV SCH ×4 (00:25→17:53)
[2022-02-28] MEDS: MIDAZOLAM HCL 125 MG/250 ML BAG IV SCH ×3 (00:34→08:19)
[2022-02-28] MEDS: fentaNYL citrate 100 MCG/2 ML VIAL IV PRN ×6 (00:45→06:48)
[2022-02-28] MEDS: INSULIN ASPART PER UNIT SC SCH ×4 (00:51→17:53)
[2022-02-28] MEDS: MIDAZOLAM BOLUS FROM BAG IV PRN ×2 (03:28→04:45)
[2022-02-28] MEDS: TUBE FEEDING WATER FLUSH OG SCH ×3 (03:29→09:32)
[2022-02-28 03:31] LABS: BUN Creatinine Ratio 7.7 (10-20); Calcium 7.7 mg/dl (8.5-10.1); Creatinine Clr Calc Pharmacy 163.3 ml/min; Est GFR (Non-African American) 120.8 ml/min; Potassium 4.2 mmol/L (3.5-5.1)
[2022-02-28] MEDS: HEPARIN SOD 5,000 UNIT/0.5 ML VIAL SQ SCH ×3 (05:39→22:46)
[2022-02-28 06:29] LABS: BUN Creatinine Ratio 6.5 (10-20); Creatinine Clr Calc Pharmacy 171.2 ml/min; Est GFR (African American) 142.2 ml/min; Est GFR (Non-African American) 122.7 ml/min; Magnesium 2.1 mg/dl (1.7-2.4); Phosphorus 2.2 mg/dl (2.5-4.9); Potassium 4.1 mmol/L (3.5-5.1)
[2022-02-28] MEDS: NOREPINEPHRINE/D5W 4 MG/250 ML PLCT IV SCH (06:36)
[2022-02-28 07:02] LABS: Basophils # (auto) 0.03 K/uL (0-0.2); Basophils % (auto) 0.2 %; Hematocrit (blood only) 31.3 % (34.1-44.9); Hemoglobin 10.7 g/dl (12.0-16.0); Immature Granulocytes # (auto) 0.13 K/uL (0.00-0.02); Immature Granulocytes % (auto) 0.9 %; Lymphocytes # (auto) 1.52 K/uL (1.2-3.4); Lymphocytes % (auto) 10.4 %; Mean Corpuscular Hemoglobin 31.8 pg (25.0-34.0); Mean Corpuscular Hgb Conc 34.2 g/dL (32.0-36.0); Mean Corpuscular Volume 92.9 fL (80.0-100.0); Monocytes # (auto) 1.27 K/uL (0.24-0.82); Monocytes % (auto) 8.7 %; Neutrophils # (auto) 11.66 K/uL (1.4-6.5); Neutrophils % (auto) 79.8 %; Platelet Count 215 K/uL (130-400); RDW Coefficient of Variation 12.9 % (11.5-14.5); RDW Standard Deviation 43.8 fL (36.4-46.3); Red Blood Count 3.37 M/uL (3.93-5.22); White Blood Count 14.61 K/ul (4.8-10.8)
[2022-02-28 08:13] LABS: iSTAT Arterial Blood Gas HCO3 23 meg/L (19-24); iSTAT Arterial Blood Gas pCO2 38 mmHg (35-46); iSTAT Arterial Blood Gas pH 7.39 (7.35-7.45); iSTAT Arterial Blood Gas pO2 81 mmHg (80-95); iSTAT Carbon Dioxide 24 mmol/L (24-31); iSTAT FiO2 30 %; iSTAT Site Art Line
[2022-02-28] MEDS: MULTI VIT W/MINERALS LIQUID 15 ML UDP NG SCH (08:13)
[2022-02-28] MEDS: FAMOTIDINE 20 MG in SYRINGE 3 ML IV SCH ×2 (08:15→20:31)
[2022-02-28] MEDS ORDERED: SODIUM PHOSPHATE 3 MMOL/1 ML 5 ML VIAL IV ONE (08:29)
[2022-02-28] MEDS ORDERED: SODIUM PHOSPHATE 21 MMOL in SODIUM CHLORIDE 0.9% 500 ML IV ONE (09:15)
--- NOTE | 2022-02-28 10:11 | Critical Care Progress Note ---
Date of Service February 28, 2022 Assessment & Plan (1) Acidosis, lactic: (2) Acute hypotension: (3) Drug overdose: (4) Shock: (5) Aspiration pneumonia of both lower lobes: (6) Respiratory failure: (7) Seizure: (8) Hypothyroidism: Plan Reason Critically Ill: 26 YOF with ingestion of Bupropion reported in a text/letter, where the patient was found down. Unknown exact amount however reported the amount would be up to 14GM of BUPROPRION XR. Patient was intubated for encephalopathy resulting in obtundation and re-current seizures. She was given Ativan for her seizures. ICU was consulted for further management. She currently with neurotoxic evidence and also requiring vasopressors for hypotension Neuro - Overdose intentional, Seizures --Metabolic encephalopathy Secondary to intentional overdose of bupropion 14 g Did have witnessed seizure for which patient was intubated EEG did not show any signs of seizure-like activity Toxicology screen positive for amphetamine as well as ecstasy Negative for salicylates and acetaminophen, negative alcohol - Recommend psychiatric consultation when patient able to participate in interview Cardiac - -- S/p shock With her ingestion of above medication will provide pressors. If cardiotoxicity progresses this will likely be refractory supportive care as above Lactic Acidosis is improving avoid further QT prolonging medications as able -- Prolonged QTC 525 02/27/2022 --> QTC 482 02/28/2022 keep K >4 and Mag >2.0 Respiratory - -- VDRF Multifactorial Altered mental status with seizure-like activity Continue with ventilatory support Daily sedation holidays and SBT's -- Aspiration pneumonia Opacities bilateral lower lobes on the CAT scan of the chest Continue with antibiotics Nasal MRSA negative -- Right upper lobe atelectasis Resolved on the chest x-ray done 02/27/2022 GI - Continue with Pepcid RENAL/LYTES - --PORTER --> improving Monitor BUNs/creatinine Avoid nephrotoxic medication -- S/p HAGMA - No acute needs Padilla to gravity placed ENDO - --Elevated TSH with normal T4 on 02/27/2022 Repeat TSH 2.7 on 02/28/2022 HEME - Leukocytosis, likely reactive Continue to monitor ID - -- Aspiration Pneumonia Continue with antibiotics --Prophylaxis VTE: Heparin GI: Pepcid Lines:, Left radial, Right IJ, positive Padilla Diet: tube feeds Plan: In/out: -118, urine output 20-50 AB.39/38/81 on 30%, PEEP of 5 Hypophosphatemia being replaced by sodium Phos Trial of extubation today. If extubated will need one-to-one DC Padilla If the peripherals are working well we will discontinue the central line as well I have personally spent 37 minutes of critical care time in the direct management of this patient. This is a life/limb threatening event. This includes time spent evaluating patient, direct bedside care, chart review, placing orders, interpretation of diagnostic studies, discussion with consultants, patient, and family members, as well as other required patient management activities. This time is exclusive of all separately billable procedures, and separate from and in addition to any other critical care service time. Thank you for allowing us to participate in the care of this patient. Please refer to my attending physician's documentation for any further recommendations. Admission and Anticipated Discharge Date Admission Date: February 26, 2022 Subjective Patient seen and examined at bedside. No acute distress, no adverse events overnight Patient was on pressure support 5/5 30% getting good tidal volumes. Was following simple commands. Denied any chest pain, no abdominal pain No headache Review of Systems Review of Systems: All systems reviewed & are unremarkable except as noted in Subjective Physical Exam Physical Exam: Constitutional: No acute distress HEENT: PERRLA, positive ETT Respiratory system: Decreased air entry bilaterally, no wheeze, no rhonchi, positive crackles bilateral lower lobes CVS: S1-S2 positive, no murmurs or gallops, tachycardia Abdomen: Soft, nontender, nondistended, positive bowel sounds x4 Extremities: +2 pulses bilaterally radialis/ dorsalis pedis, no cyanosis, no edema Neuro: RASS -1, answering questions appropriately, following commands Psych: Unable to assess G/U: Positive Padilla Skin: no rashes, warm and dry Lymphatic: no cervical or axillary lymphadenopathy Results & Data Results & Data ([facility]) Vital Signs (Past 12 Hours) Vital Signs Temp Pulse Resp BP Pulse Ox FiO2 02/28/22 08:30 100 H 20 95 30 02/28/22 07:17 99 H 21 93 30 02/28/22 06:00 37.1 C 96 H 18 128/89 96 02/28/22 05:00 36.9 C 98 H 18 127/79 96 02/28/22 04:00 37.1 C 99 H 19 125/84 97 02/28/22 03:00 37.2 C 99 H 17 121/81 95 02/28/22 02:00 37.3 C 100 H 17 117/76 94 02/28/22 01:00 37.4 C 101 H 20 118/73 94 02/28/22 00:00 36.9 C 99 H 16 120/73 95 02/27/22 23:00 37.2 C 101 H 17 121/69 95 02/28/22 04:00 30 02/28/22 00:00 30 02/28/22 02:59 99 H 21 95 30 02/27/22 23:01 100 H 19 93 30 02/27/22 22:59 101 H Laboratory Results 02/28/22 05:47 02/28/22 05:45 Coding Level of Care Code Critical Care 1st 30-74 mins Diagnoses Acidosis, lactic E87.20 Acute hypotension I95.9 Drug overdose T50.901A Shock R57.9 Aspiration pneumonia of both lower lobes J69.0 Respiratory failure J96.90 Seizure R56.9 Hypothyroidism E03.9 Time Spent (min) 37
--- NOTE | 2022-02-28 14:09 | Hospitalist Progress Note ---
Date of Service February 28, 2022 Assessment & Plan (1) Acute hypoxemic respiratory failure: (2) Drug overdose: Plan 26-year-old with PMH of mood disorder, gender identity disorder who was found by police with AMS and became unresponsive shortly after talking to police. She is being managed for the following: Likely aspiration pneumonia secondary to new onset seizure activity secondary to intentional overdose of Wellbutrin: Acute hypoxemic respiratory failure Severe sepsis POA [SARS plus ARF plus hypoxemia plus encephalopathy] secondary to above Likely toxic and metabolic encephalopathy Lactic acidosis: resolved. Patient was found by police and became unresponsive while talking to police at home. Seizure activity was witnessed by EMS and then another seizure activity w itnessed at CAT scan. Patient was noted to be hypoxemic at presentation, initially on high flow oxygen, then intubated 02/26 at ED -->extubated 02/28 AM. Per record, patient had left suicidal note indicating she took approximately 14.5 g Wellbutrin at around 2 PM of 02/26. Admitting CT head: No acute findings. Admitting CXR with possible patchy bilateral airspace opacities suggestive of infectious process or aspiration. Nasal MRSA negative at admission. 02/27 CT chest: Near complete consolidation throughout the right upper lobe, spinal small pleural effusion with dependent consolidation. No pneumothorax. Follow-up CXR on 02/27 with near complete resolution of right upper lobe atelectasis. 02/27 EEG: no electrographic seizure or epileptogenic discharge. Urine toxicology at admission positive for amphetamine, ecstasy. Negative for salicylates and Tylenol. Follow final results. Admitting EKG with QTC of 456, 02/27 EKG with QTC of 525. Labs with elevated WBC, follow. Neurology consulted, no indication to add antiepileptic Rx, seizure precautions. Restart lamotrigine after extubation to avoid withdrawal seizures Psychiatric consult, await recs. Patient extubated 12/1 AM, being managed in ICU On unasyn for aspiration Avoiding QT prolonging meds, monitoring QTc. Monitoring and repleting electrolytes w/ goal of K >4 and Mg > 2 Suicide precautions Acute Kidney Injury: present at admission, resolved. Subclinical hypothyroidism, ruled out: elevated TSH w/ normal T4 at admission. Repeat tft wnl. Other chronic medical conditions: Mood disorder, gender identity disorder. Hold psychiatric meds until psy eval. Full code DVT prophylaxis: Heparin subcu GI prophylaxis while in icu. Admission and Anticipated Discharge Date Admission Date: February 26, 2022 Subjective Patient seen and examined at bedside as a follow-up of acute hypoxemic resp iratory failure and aspiration pneumonia, likely and new onset seizure secondary to intentional overdose of Wellbutrin and severe sepsis at A. Patient was lying in bed, drowsy/confused, was extubated in AM, ROS n/a. Doesn't appear to be in discomfort. Physical Exam Physical Exam: GENERAL: lethargic, drowsy, not oriented, on RA, not able to cooperate. HEENT: No pallor, no icterus. Pupils equal, round and reactive to light. Oral mucosa dry. NECK: No JVD, no neck masses. HEART: S1 and S2 heard. tachycardia. No murmur, no gallop. RESPIRATORY SYSTEM: Normal AP diameter. No accessory muscle use. No wheezing, b/b crackles. ABDOMEN: Soft, bowel sounds present, no distention. CENTRAL NERVOUS SYSTEM: n/a EXTREMITIES: No edema, no erythema seen. Results & Data Results & Data ([facility]) Vital Signs (Past 12 Hours) Vital Signs Temp Pulse Resp BP Pulse Ox O2 Del Method FiO2 02/28/22 12:00 104 H 21 91 02/28/22 12:00 137/95 02/28/22 11:00 105 H 21 92 02/28/22 11:00 142/76 H 02/28/22 10:00 101 H 20 92 02/28/22 10:00 137/87 02/28/22 09:51 130/88 02/28/22 09:51 101 H 22 92 02/28/22 09:00 98 H 14 96 02/28/22 09:00 131/87 02/28/22 08:00 37.1 C 101 H 17 97 02/28/22 08:00 131/86 02/28/22 07:29 37.1 C 102 H 12 97 02/28/22 07:29 124/91 02/28/22 07:00 37.1 C 102 H 17 97 02/28/22 07:00 133/91 02/28/22 06:45 37.1 C 99 H 15 97 02/28/22 06:45 127/93 02/28/22 08:00 96 H 02/28/22 08:00 30 02/28/22 09:00 BiPAP 30 02/28/22 08:30 100 H 20 95 30 02/28/22 07:17 99 H 21 93 30 02/28/22 06:00 37.1 C 96 H 18 128/89 96 02/28/22 05:00 36.9 C 98 H 18 127/79 96 02/28/22 04:00 37.1 C 99 H 19 125/84 97 02/28/22 03:00 37.2 C 99 H 17 121/81 95 02/28/22 04:00 30 02/28/22 02:59 99 H 21 95 30
--- NOTE | 2022-02-28 19:02 | Electrocardiogram Report ---
Test Reason : Blood Pressure : / mmHG Vent. Rate : 099 BPM Atrial Rate : 099 BPM P-R Int : 164 ms QRS Dur : 092 ms QT Int : 428 ms P-R-T Axes : 046 042 070 degrees QTc Int : 549 ms Normal sinus rhythm Nonspecific T wave abnormality Abnormal ECG When compared with ECG of 27-FEB-2022 03:06, Nonspecific T wave abnormality now evident in Inferior leads Confirmed by Garrett Diaz ([id number]) on 02/28/2022 7:01:37 PM Referred By: REFERRED SELF Confirmed By:Nigel Diaz
--- NOTE | 2022-02-28 19:09 | Electrocardiogram Report ---
Test Reason : Blood Pressure : / mmHG Vent. Rate : 103 BPM Atrial Rate : 103 BPM P-R Int : 154 ms QRS Dur : 092 ms QT Int : 400 ms P-R-T Axes : 055 043 070 degrees QTc Int : 524 ms Sinus tachycardia Prolonged QT Nonspecific ST abnormality Abnormal ECG When compared with ECG of 27-FEB-2022 16:08, (unconfirmed) No significant change was found Confirmed by Garrett Diaz ([id number] on 02/28/2022 7:09:23 PM Referred By: REFERRED SELF Confirmed By:Nigel Diaz
--- NOTE | 2022-02-28 20:52 | Electrocardiogram Report ---
Test Reason : Blood Pressure : / mmHG Vent. Rate : 099 BPM Atrial Rate : 099 BPM P-R Int : 170 ms QRS Dur : 092 ms QT Int : 376 ms P-R-T Axes : 047 028 062 degrees QTc Int : 482 ms Normal sinus rhythm Nonspecific T wave abnormality Prolonged QT Abnormal ECG When compared with ECG of 27-FEB-2022 20:23, (unconfirmed) No significant change was found Confirmed by Garrett Diaz ([id number] on 02/28/2022 8:51:35 PM Referred By: REFERRED SELF Confirmed By:Nigel Diaz
[2022-03-01] MEDS: INSULIN ASPART PER UNIT SC SCH ×3 (00:22→13:12)
[2022-03-01] MEDS: AMPICILLIN/SULBACTAM SOD 3,000 MG in 0.9 % SODIUM CHLORIDE 100 ML IV SCH ×2 (00:26→06:25)
[2022-03-01 05:22] LABS: Basophils # (auto) 0.03 K/uL (0-0.2); Basophils % (auto) 0.2 %; Eosinophils # (auto) 0.02 K/uL (0-0.50); Eosinophils % (auto) 0.1 %; Hematocrit (blood only) 31.9 % (34.1-44.9); Hemoglobin 10.8 g/dl (12.0-16.0); Immature Granulocytes # (auto) 0.16 K/uL (0.00-0.02); Immature Granulocytes % (auto) 1.1 %; Lymphocytes # (auto) 1.49 K/uL (1.2-3.4); Lymphocytes % (auto) 10.7 %; Mean Corpuscular Hemoglobin 31.7 pg (25.0-34.0); Mean Corpuscular Hgb Conc 33.9 g/dL (32.0-36.0); Mean Corpuscular Volume 93.5 fL (80.0-100.0); Mean Platelet Volume 9.7 fL (9.4-12.3); Monocytes # (auto) 1.07 K/uL (0.24-0.82); Monocytes % (auto) 7.7 %; Neutrophils # (auto) 11.16 K/uL (1.4-6.5); Neutrophils % (auto) 80.2 %; Platelet Count 205 K/uL (130-400); RDW Coefficient of Variation 12.6 % (11.5-14.5); RDW Standard Deviation 42.9 fL (36.4-46.3); Red Blood Count 3.41 M/uL (3.93-5.22); White Blood Count 13.93 K/ul (4.8-10.8)
[2022-03-01 05:39] LABS: BUN Creatinine Ratio 10.5 (10-20); Calcium 8.6 mg/dl (8.5-10.1); Creatinine Clr Calc Pharmacy 186.2 ml/min; Est GFR (African American) 146.2 ml/min; Est GFR (Non-African American) 126.2 ml/min; Magnesium 1.9 mg/dl (1.7-2.4); Phosphorus 2.8 mg/dl (2.5-4.9)
[2022-03-01] MEDS: HEPARIN SOD 5,000 UNIT/0.5 ML VIAL SQ SCH ×3 (06:15→22:46)
[2022-03-01] MEDS ORDERED: MAGNESIUM SULFATE / D5W 1 GM/100 ML BAG IV ONE (07:54)
--- NOTE | 2022-03-01 09:03 | Critical Care Progress Note ---
Date of Service March 01, 2022 Assessment & Plan (1) Acidosis, lactic: (2) Acute hypotension: (3) Drug overdose: (4) Shock: (5) Aspiration pneumonia of both lower lobes: (6) Respiratory failure: (7) Seizure: (8) Hypothyroidism: Plan Reason Critically Ill: 26 YOF with ingestion of Bupropion reported in a text/letter, where the patient was found down. Unknown exact amount however reported the amount would be up to 14GM of BUPROPRION XR. Patient was intubated for encephalopathy resulting in obtundation and re-current seizures. She was given Ativan for her seizures. ICU was consulted for further management. She currently with neurotoxic evidence and also requiring vasopressors for hypotension Neuro - Overdose intentional, Seizures --Metabolic encephalopathy --> resolved Secondary to intentional overdose of bupropion 14 g Did have witnessed seizure for which patient was intubated EEG did not show any signs of seizure-like activity Toxicology screen positive for amphetamine as well as ecstasy Negative for salicylates and acetaminophen, negative alcohol - Recommend psychiatric consultation when patient able to participate in [facility] - -- S/p shock With her ingestion of above medication will provide pressors. If cardiotoxicity progresses this will likely be refractory supportive care as above avoid further QT prolonging medications as able -- Prolonged QTC 525 02/27/2022 --> QTC 482 02/28/2022 keep K >4 and Mag >2.0 Respiratory - -- S/p VDRF Multifactorial Altered mental status with seizure-like activity Extubated 02/28/2022 -- Aspiration pneumonia Opacities bilateral lower lobes on the CAT scan of the chest Continue with antibiotics Nasal MRSA negative -- Right upper lobe atelectasis Resolved on the chest x-ray done 02/27/2022 GI - Continue with Pepcid RENAL/LYTES - --PORTER --> improving Monitor BUNs/creatinine Avoid nephrotoxic medication -- S/p HAGMA - -- Urinary retention Continue with Padilla for the time being ENDO - --Elevated TSH with normal T4 on 02/27/2022 Repeat TSH 2.7 on 02/28/2022 HEME - Monitor H&H ID - -- Aspiration Pneumonia Continue with antibiotics --Prophylaxis VTE: Heparin GI: Pepcid Lines: Right IJ, positive Padilla Diet: Start clear liquid Plan: In/out: -2.8 L, urine output 3900 mL Hypomagnesemia being replaced. We will do bedside swallow eval. If the patient is able to tolerate we will start clear liquids and advance as tolerated. Out of the bed to chair. Continue with one-to-one. Will await psychiatry consultation. Would continue with Padilla for the time being. Start the patient on incentive spirometry Removal of right IJ We will try to transition antibiotics to p.o. if the patient is able to swallow without any issues Please note the above document was generated using voice recognition software. It may contain grammatical, syntax or spelling errors.Any formal questions or concerns about the content, text or information contained within the body of this dictation should be directly addressed to the provider for clarification. Admission and Anticipated Discharge Date Admission Date: February 26, 2022 Subjective Patient seen and examined at bedside. No acute distress, no adverse events overnight. Patient awake alert oriented. Answering all the questions appropriately Denies any headache, no nausea, no vomiting No abdominal pain. No headache, no blurry vision. Has been afebrile. Review of Systems Review of Systems: All systems reviewed & are unremarkable except as noted in Subjective Physical Exam Physical Exam: Constitutional: No acute distress HEENT: PERRLA, EOMI Respiratory system: Decreased air entry bilaterally, no wheeze, no rhonchi, positive crackles bilateral lower lobes CVS: S1-S2 positive, no murmurs or gallops, tachycardia Abdomen: Soft, nontender, nondistended, positive bowel sounds x4 Extremities: +2 pulses bilaterally radialis/ dorsalis pedis, no cyanosis, no edema Neuro: Awake alert oriented x3 Psych: Normal mood and affect G/U: Positive Padilla Skin: no rashes, warm and dry Lymphatic: no cervical or axillary lymphadenopathy Results & Data Results & Data ([facility]) Vital Signs (Past 12 Hours) Vital Signs Temp Pulse Resp BP Pulse Ox 03/01/22 05:21 37.2 C 03/01/22 04:00 100 H 18 129/81 92 03/01/22 03:00 100 H 20 130/85 94 03/01/22 02:00 102 H 27 H 140/78 88 L 03/01/22 01:00 22 135/82 91 03/01/22 00:00 104 H 21 134/83 91 02/28/22 23:00 107 H 24 134/90 90 02/28/22 22:00 108 H 20 134/90 91 02/28/22 21:00 107 H 22 143/89 H 90 03/01/22 00:00 103 H Laboratory Results 03/01/22 04:57 03/01/22 04:57 Coding Level of Care Code 31368 Subseq Hosp Care Lvl 3 Diagnoses Acidosis, lactic E87.20 Acute hypotension I95.9 Drug overdose T50.901A Shock R57.9 Aspiration pneumonia of both lower lobes J69.0 Respiratory failure J96.90 Seizure R56.9 Hypothyroidism E03.9
[2022-03-01] MEDS: FAMOTIDINE 20 MG in SYRINGE 3 ML IV SCH (09:05)
[2022-03-01] MEDS: MULTI VIT W/MINERALS LIQUID 15 ML UDP NG SCH (10:17)
[2022-03-01] MEDS: AMOXICILLIN/CLAVULANATE 875 MG TAB PO SCH ×2 (10:22→22:46)
[2022-03-01] MEDS: LURASIDONE HCL 40 MG TAB PO SCH (10:22)
[2022-03-01] MEDS: lamoTRIgine 100 MG TAB PO SCH ×2 (10:22→20:08)
--- NOTE | 2022-03-01 11:12 | Psychiatric Consultation ---
Date of Consultation March 01, 2022 Impression / Recommendations Impression This is a 26 yo admitted medically following an intentional overdose suicide attempt. Diagnostically seems most consistent with depressive episode vs substance-induced. UDS positive for amphetamine/methamphetamine and MDMA with confirmatory testing pending (but both of these could be false positive due to cross-reactivity given use of prescribed Wellbutrin). Acute risk of self-harm remains elevated and high given suicide attempt requiring ICU admission, intubation, major depressive symptoms, impulsivity, remains ambivalent about being alive, has chronic intermittent SI, limited insight, and periods of high psychic distress. Given elevated risk of harm to self they meet criteria for inpatient psychiatric care for diagnostic clarification, safety/stabilization, development of additional coping skills, medication management and disposition/safety planning once medically stable. If they do not agree to voluntary treatment at that time they will meet criteria for 302 status based on severity of suicide attempt and ongoing modifiable risk factors. (1) Suicide attempt by drug overdose: (2) Depression: Plan -Continue 1-on-1 for risk of harm to self -Do not discharge or allow to leave AMA, call psych liason and 302 warrant can be completed if needed -Agree with restarting lamictal and latuda and discontinuation of Wellbutrin -Once medically cleared plan for psychiatric hospitalization (either 201 or 302 status). -psych liason to get further collateral from friend and records from [facility], patient declined to sign KAILA for parents or any other supports Risk Factors Assessment Do You Have Access To A Gun?: No Psych History Identifying Data Ziggy is a 26 yo gender diverse individual (they/them) pronouns with a history of bipolar disorder and depression admitted medically to the ICU following suicide attempt via ingestion of 14.5g of Wellbutrin XL. Psychiatry consulted for recommendations and risk assessment. Chief Complaint "I don't remember anything". History of Present Illness Ziggy was admitted medically following suicide attempt via ingestion of estimated 14.5 g of Wellbutrin XL after leaving a suicide note detailing this amount and then called 911 who found patient minimally responsive and required intubation and ICU admission on arrival to the hospial. Today they are 24 hours since extubation and fully oriented and able to communicate. They cannot recall any events leading to the suicide attempt except noting that they remember sitting on the bed and holding pills but not taking them. They cannot recall if they were in their graduate school classes the day before or any specific events leading up to the ingestion nor any specific triggers. They note a long history of depression as well as ongoing general stress denies any recent changes in this noting "but I am not sure why now". They denied current thoughts of suicide but feel ambivalent about surviving the attempt noting they feel "neutral" about this. They were not aware that they had written a suicide note as referenced by the police on bringing them to the hospital but notes that they are surprised that they "called the police". They declined to sign any KAILA's for family but give the name of a friend who can be contacted. They have been taking Lamictal since 2017 with good effect, Wellbutrin since 2019 with good effect, and more started on Latuda this fall. They follow with [facility] for psychiatry at [facility] and do therapy via telemedicine with a provider [facility] through [place]. 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 They grew up in the [place] area of [place] which is where their parents live and attended school in [place] further undergraduate and master's degrees. Note a fairly extensive psychiatric history with a diagnosis of bipolar disorder with history of hypomanic and mixed episodes but never episodes of nicholas. They have a history of 5 previous psychiatric inpatient admissions last 2 admissions in the summer 2020 at a hospital in [place]. He denies any prior suicide attempts but note they have had thoughts in the past of overdosing on medication as well as more chronic thoughts of dying by suicide from [place]. They have a history of self-harm but none within the last 10 years. They experience suicidal thoughts as "little pockets throughout the year" which tend to last for a few weeks and occur about 3 times per year. They are not currently in any romantic relationships but feel well supported by peers and are involved in different organizations at [facility]. They use cannabis once to twice per week and alcohol once per week 3-4 drinks with no history of blackouts or negative consequences from substance use. They deny any history of seizures prior to this overdose. Past Psychiatric History Previous Psych History: see HPI Do You Have Access To A Gun?: No Allergies Allergy/AdvReac Type Severity Reaction Status Date / Time pine nut Allergy Anaphylaxis Verified 02/28/22 12:50 Home Medications Medication Instructions Recorded Confirmed Type bupropion HCl 150 mg 24 hr tablet, 150 mg PO DAILY 02/26/22 02/26/22 History extended release bupropion HCl 300 mg 24 hr tablet, 300 mg PO DAILY 02/26/22 02/26/22 History extended release lamotrigine 100 mg tablet 200 mg PO DAILY 02/26/22 02/26/22 History lamotrigine 150 mg tablet 150 mg PO DAILY 02/26/22 02/26/22 History lurasidone 20 mg tablet (Latuda) 20 mg PO DAILY 02/26/22 02/26/22 History testosterone 50 mg/5 gram (1 %) 0 mg topical UD 02/26/22 02/26/22 History transdermal gel Substance Abuse History see HPI Personal History Living Arrangements: Apartment (off-campus with two roommates) Childhood: Raised in [place] Highest Grade Completed: 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 Employment Status: Student Marital Status: Single Patient History Medical History (Updated 03/01/22 @ 15:34 by Cristiana Day MD) Bipolar 2 disorder Social History Smoking Status: Unknown if ever smoked Hx Alcohol Use: No (UNKOWN) Hx Substance Use: No (UNKOWN) Communication Ability: Unable Other Information That Helps Us Care for You: No (UNKOWN) Physical Exam Psychiatric: Orientation: alert and oriented x 3 Apperance: appropriately dressed and + disheveled Eye Contact: + fair eye contact Motor Behavior: no abnormal motor movements Speech: normal rate/rhythm/volume of speech Affect: + flat affect Mood: + depressed mood Thought Process: + concrete thought process Thought Content: reality based without delusions Suicidal Thoughts: + reports suicidal thoughts (serious attempt prior to admission, denies current thoughts) Homicidal Thoughts: denies homicidal thoughts Hallucinations: no auditory hallucinations and no visual hallucinations Cognition: attention grossly intact and language grossly intact Estimated Intelligence: consistent with education level Insight: + poor insight Judgement: + limited judgement Vital Signs (Past 24 Hours): Last Vital Signs Temp 37.1 C 03/01/22 09:00 Pulse 100 H 03/01/22 08:45 Resp 19 03/01/22 08:45 BP 122/74 03/01/22 08:45 Pulse Ox 79 L 03/01/22 08:00 O2 Del Method 02/28/22 19:15 FiO2 30 02/28/22 09:00 Review of Systems All systems reviewed & are unremarkable except as noted in HPI & below (malaise, body pain ) Results & Data ([facility]) Medications Administered Amoxicillin/Clavulanate Potassium (Amoxicillin/Clavulanate 875 Mg Tab) 1 tab PO Q12H TONI Stop: 03/09/22 23:59 Last Admin: 03/01/22 10:22 Dose: 1 tab Documented By: YEN Heparin Sodium (Porcine) (Heparin Sod 5,000 Unit/0.5 Ml Vial) 5,000 units SQ Q8 TONI Stop: 03/28/22 22:50 Last Admin: 03/01/22 06:15 Dose: 5,000 units Documented By: Admin: 02/28/22 22:46 Dose: 5,000 units Documented By: Admin: 02/28/22 13:21 Dose: 5,000 units Documented By: Admin: 02/28/22 05:39 Dose: 5,000 units Documented By: Admin: 02/27/22 21:13 Dose: 5,000 units Documented By: Admin: 02/27/22 11:38 Dose: 5,000 units Documented By: Admin: 02/27/22 05:19 Dose: 5,000 units Documented By: Admin: 02/27/22 00:11 Dose: 5,000 units Documented By: CRISTAL Insulin Aspart (Insulin Aspart Per Unit) 0 units SC Q6 TONI Stop: 03/29/22 05:59 Last Admin: 03/01/22 06:33 Dose: Not Given Documented By: Admin: 03/01/22 00:22 Dose: Not Given Documented By: Admin: 02/28/22 17:53 Dose: Not Given Documented By: Admin: 02/28/22 12:45 Dose: Not Given Documented By: Admin: 02/28/22 06:35 Dose: Not Given Documented By: Admin: 02/28/22 00:51 Dose: Not Given Documented By: Admin: 02/27/22 16:59 Dose: Not Given Documented By: Admin: 02/27/22 11:35 Dose: Not Given Documented By: Admin: 02/27/22 05:33 Dose: 3 units Documented By: CRISTAL Co-signed By: NITA Lamotrigine (Lamotrigine 100 Mg Tab) 250 mg PO QAM [facility] Stop: 03/31/22 09:59 Last Admin: 03/01/22 10:22 Dose: 250 mg Documented By: YEN Lurasidone HCl (Lurasidone Hcl 40 Mg Tab) 20 mg PO DAILY [facility] Stop: 03/31/22 09:59 Last Admin: 03/01/22 10:22 Dose: 20 mg Documented By: YEN Multivitamins/Minerals (Multi Vit W/Minerals Liquid 15 Ml Udp) 15 ml NG QAM [facility] Stop: 03/30/22 08:59 Last Admin: 03/01/22 10:17 Dose: Not Given Documented By: Admin: 02/28/22 08:13 Dose: 15 ml Documented By: YEN Coding Level of Care Code 67664 Inpt Consult Level 3 Diagnoses Suicide attempt by drug overdose T50.902A Depression F32.A
--- NOTE | 2022-03-01 11:53 | Hospitalist Progress Note ---
Date of Service March 01, 2022 Assessment & Plan (1) Acute hypoxemic respiratory failure: (2) Drug overdose: Plan 26-year-old with PMH of mood disorder, gender identity disorder who was found by police with AMS and became unresponsive shortly after talking to police. She is being managed for the following: Likely aspiration pneumonia secondary to new onset seizure activity secondary to intentional overdose of Wellbutrin: Pt not sure how much tablets them took. Acute hypoxemic respiratory failure Severe sepsis POA [SARS plus ARF plus hypoxemia plus encephalopathy] secondary to above Likely toxic and metabolic encephalopathy: AOx3 now Lactic acidosis: resolved. Patient was found by police and became unresponsive while talking to police at home. Seizure activity was witnessed by EMS and then another seizure activity witnessed at CAT scan. Patient was noted to be hypoxemic at presentation, initially on high flow oxyg en, then intubated 02/26 at ED -->extubated 02/28 AM. Per record, patient had left suicidal note indicating she took approximately 14.5 g Wellbutrin at around 2 PM of 02/26. Admitting CT head: No acute findings. Admitting CXR with possible patchy bilateral airspace opacities suggestive of infectious process or aspiration. Nasal MRSA negative at admission. 02/27 CT chest: Near complete consolidation throughout the right upper lobe, spinal small pleural effusion with dependent consolidation. No pneumothorax. Follow-up CXR on 02/27 with near complete resolution of right upper lobe atelectasis. 02/27 EEG: no electrographic seizure or epileptogenic discharge. Urine toxicology at admission positive for amphetamine, ecstasy. Negative for salicylates and Tylenol. Follow final results. Admitting EKG with QTC of 456, 02/27 EKG with QTC of 525. 02/28 EKG w/ QTc 482 Labs with elevated WBC, follow. Neurology consulted, no indication to add antiepileptic Rx, seizure precautions. Restart lamotrigine after extubation to avoid withdrawal seizures Psychiatric consult, to , can't leave ama, resume lamictal and latuda. Psychiatric admission when medically cleared. Patient extubated 12 AM, being managed in ICU, to be downgraded to med/tele today. On unasyn for aspiration 02/27 -- augmentin 03/01 Avoiding QT prolonging meds, monitoring QTc. Monitoring and repleting electrolytes w/ goal of K >4 and Mg > 2 Suicide precautions Acute Kidney Injury: present at admission, resolved. Subclinical hypothyroidism, ruled out: elevated TSH w/ normal T4 at admission. Repeat tft wnl. Other chronic medical conditions: Mood disorder, gender identity disorder. Hold psychiatric meds until psy eval. Full code DVT prophylaxis: Heparin subcu GI prophylaxis while in icu. Dispo[facility] Admission and Anticipated Discharge Date Admission Date: February 26, 2022 Subjective Patient seen and examined at bedside as a follow-up of acute hypoxemic respiratory failure and aspiration pneumonia, likely and new onset seizure secondary to intentional overdose of Wellbutrin and severe sepsis at POA. Patient was lying in bed, more alert and Oriented x 3, NAD, denies discomfort, reports eating little, no BM lately, denies other ROS. Per RN, no new issues overnight, per ICU can be downgraded. Physical Exam Physical Exam: GENERAL: Alert and awake, on RA HEENT: No pallor, no icterus. Pupils equal, round and reactive to light. Oral mucosa dry. NECK: No JVD, no neck masses. HEART: S1 and S2 heard. tachycardia. No murmur, no gallop. RESPIRATORY SYSTEM: Normal AP diameter. No accessory muscle use. No wheezing, b/b crackles. ABDOMEN: Soft, bowel sounds present, no distention. CENTRAL NERVOUS SYSTEM: n/a EXTREMITIES: No edema, no erythema seen. Padilla +. Results & Data Results & Data ([facility]) Vital Signs (Past 12 Hours) Vital Signs Temp Pulse Resp BP Pulse Ox 03/01/22 09:00 37.1 C 03/01/22 08:00 94 H 03/01/22 08:45 100 H 19 03/01/22 08:45 122/74 03/01/22 08:00 97 H 19 79 L 03/01/22 08:00 139/99 03/01/22 07:00 94 H 20 94 03/01/22 07:00 111/92 03/01/22 06:00 99 H 21 95 03/01/22 06:00 130/88 03/01/22 05:21 37.2 C 03/01/22 04:00 100 H 18 129/81 92 03/01/22 03:00 100 H 20 130/85 94 03/01/22 02:00 102 H 27 H 140/78 88 L 03/01/22 01:00 22 135/82 91 03/01/22 00:00 104 H 21 134/83 91 03/01/22 00:00 103 H
[2022-03-01 17:46] LABS: Estimated Average Glucose 91 mg/dl; Hemoglobin A1C 4.8 % (4.5-5.6)
[2022-03-02] MEDS: HEPARIN SOD 5,000 UNIT/0.5 ML VIAL SQ SCH ×3 (05:58→23:31)
[2022-03-02] MEDS: LURASIDONE HCL 40 MG TAB PO SCH (08:28)
[2022-03-02] MEDS: lamoTRIgine 100 MG TAB PO SCH ×2 (08:28→20:29)
[2022-03-02] MEDS: MULTI VIT W/MINERALS LIQUID 15 ML UDP NG SCH (08:29)
[2022-03-02 09:15] LABS: Basophils # (auto) 0.07 K/uL (0-0.2); Basophils % (auto) 0.7 %; Eosinophils # (auto) 0.05 K/uL (0-0.50); Eosinophils % (auto) 0.5 %; Hematocrit (blood only) 34.7 % (34.1-44.9); Hemoglobin 11.6 g/dl (12.0-16.0); Immature Granulocytes # (auto) 0.25 K/uL (0.00-0.02); Immature Granulocytes % (auto) 2.4 %; Lymphocytes # (auto) 1.78 K/uL (1.2-3.4); Mean Corpuscular Hemoglobin 31.1 pg (25.0-34.0); Mean Corpuscular Hgb Conc 33.4 g/dL (32.0-36.0); Mean Platelet Volume 9.4 fL (9.4-12.3); Monocytes # (auto) 0.85 K/uL (0.24-0.82); Monocytes % (auto) 8.1 %; Neutrophils # (auto) 7.48 K/uL (1.4-6.5); Neutrophils % (auto) 71.3 %; Platelet Count 220 K/uL (130-400); RDW Coefficient of Variation 12.9 % (11.5-14.5); RDW Standard Deviation 43.9 fL (36.4-46.3); Red Blood Count 3.73 M/uL (3.93-5.22); White Blood Count 10.48 K/ul (4.8-10.8)
[2022-03-02 09:54] LABS: BUN Creatinine Ratio 14.8 (10-20); Calcium 8.9 mg/dl (8.5-10.1); Creatinine Clr Calc Pharmacy 164.4 ml/min; Est GFR (Non-African American) 123.4 ml/min; Magnesium 2.1 mg/dl (1.7-2.4); Phosphorus 3.8 mg/dl (2.5-4.9); Potassium 3.6 mmol/L (3.5-5.1)
[2022-03-02] MEDS ORDERED: POTASSIUM CHLORIDE CRTAB 20 MEQ TABCR PO STA (10:04)
[2022-03-02] MEDS: AMOXICILLIN/CLAVULANATE 875 MG TAB PO SCH ×2 (10:26→23:30)
--- NOTE | 2022-03-02 10:44 | XRay Report ---
LEFT SHOULDER 3 VIEWS CLINICAL HISTORY: Left shoulder pain. FINDINGS: 3 views of the left shoulder are obtained. No prior studies are available for comparison at the time of dictation. The skeletal structures are well mineralized. There is no radiographic eviden ce of fracture or dislocation. The glenohumeral and acromioclavicular joints are maintained. The over lying soft tissues are within normal limits. The left lung parenchyma is clear as imaged. IMPRESSION: No acute bony abnormality is identified. Electronically signed by: Caesar John M.D. 03/02/2022 10:43 AM
--- NOTE | 2022-03-02 12:37 | Hospitalist Progress Note ---
Date of Service March 02, 2022 Assessment & Plan (1) Acute hypoxemic respiratory failure: (2) Drug overdose: Plan 26-year-old with PMH of mood disorder, gender identity disorder who was found by police with AMS and became unresponsive shortly after talking to police. She is being managed for the following: Likely aspiration pneumonia secondary to new onset seizure activity secondary to intentional overdose of Wellbutrin: Pt not sure how much tablets them took. Acute hypoxemic respiratory failure Severe sepsis POA [SARS plus ARF plus hypoxemia plus encephalopathy] secondary to above Likely toxic and metabolic encephalopathy: AOx3 now Lactic acidosis: resolved. Patient was found by police and became unresponsive while talking to police at home. Seizure activity was witnessed by EMS and then another seizure activity witnessed at CAT scan. Patient was noted to be hypoxemic at presentation, initially on high flow oxyg en, then intubated 02/26 at ED -->extubated 02/28 AM. Per record, patient had left suicidal note indicating she took approximately 14.5 g Wellbutrin at around 2 PM of 02/26. Admitting CT head: No acute findings. Admitting CXR with possible patchy bilateral airspace opacities suggestive of infectious process or aspiration. Nasal MRSA negative at admission. 02/27 CT chest: Near complete consolidation throughout the right upper lobe, spinal small pleural effusion with dependent consolidation. No pneumothorax. Follow-up CXR on 02/27 with near complete resolution of right upper lobe atelectasis. 02/27 EEG: no electrographic seizure or epileptogenic discharge. Urine toxicology at admission positive for amphetamine, ecstasy. Negative for salicylates and Tylenol. Follow final results. Admitting EKG with QTC of 456, 02/27 EKG with QTC of 525. 02/28 EKG w/ QTc 482 WBC nl, pt afebrile. Neurology consulted, no indication to add antiepileptic Rx, seizure precautions. Psychiatric consult, to , can't leave ama, resume lamictal and latuda. Psychiatric admission when medically cleared. Patient extubated 02/28 AM, being managed in ICU, to be downgraded to med/tele 03/01. On unasyn for aspiration 02/27 -- augmentin 03/01 Avoiding QT prolonging meds, monitoring QTc. Monitoring and repleting electrolytes w/ goal of K >4 and Mg > 2 Suicide precautions Medically stable to be discharged to psychiatry pond, tyler out today. Acute Kidney Injury: present at admission, resolved. Subclinical hypothyroidism, ruled out: elevated TSH w/ normal T4 at admission. Repeat tft wnl. Other chronic medical conditions: Mood disorder, gender identity disorder. Psych meds per psychiatry. Full code DVT prophylaxis: Heparin subcu GI prophylaxis while in icu. Dispo: Will get tyler out today, if not retaining, we can dc pt to psych pond when bed available. Admission and Anticipated Discharge Date Admission Date: February 26, 2022 Subjective Patient seen and examined at bedside as a follow-up of acute hypoxemic respiratory failure and aspiration pneumonia, likely and new onset seizure secondary to intentional overdose of Wellbutrin and severe sepsis at POA. Patient was sitting up in bed, more alert and Oriented x 3, NAD, denies discomfort, reports eating little, no BM lately,add miralax, denies other ROS. Per RN, no new issues overnight, reports left shoulder pain, XR normal, voltaren gel orderred. Physical Exam Physical Exam: GENERAL: Alert and awake, on RA HEENT: No pallor, no icterus. Pupils equal, round and reactive to light. Oral mucosa dry. NECK: No JVD, no neck masses. HEART: S1 and S2 heard. tachycardia. No murmur, no gallop. RESPIRATORY SYSTEM: Normal AP diameter. No accessory muscle use. No wheezing, no crackles. ABDOMEN: Soft, bowel sounds present, no distention. CENTRAL NERVOUS SYSTEM: n/a EXTREMITIES: No edema, no erythema seen. Tyler +. Results & Data Results & Data ([facility]) Vital Signs (Past 12 Hours) Vital Signs Temp Pulse Resp BP Pulse Ox O2 Del Method 03/02/22 12:20 36.8 C 94 H 18 112/76 94 Room Air 03/02/22 07:11 37.0 C 92 H 16 121/79 95 Room Air 03/02/22 04:27 88 03/02/22 03:48 37.0 C 92 H 18 123/79 91 Room Air
[2022-03-02] MEDS: DICLOFENAC SOD 1% GEL 100 GM TUBE EXT SCH ×2 (13:25→20:30)
[2022-03-02] MEDS: POLYETHYLENE (MIRALAX) 17 GM PACK PO SCH (13:25)
[2022-03-02] MEDS: ACETAMINOPHEN 325 MG TAB PO PRN ×2 (17:42→23:35)
[2022-03-03] MEDS: HEPARIN SOD 5,000 UNIT/0.5 ML VIAL SQ SCH (05:55)
[2022-03-03 07:47] LABS: Basophils # (auto) 0.05 K/uL (0-0.2); Basophils % (auto) 0.6 %; Eosinophils # (auto) 0.15 K/uL (0-0.50); Eosinophils % (auto) 1.7 %; Hematocrit (blood only) 35.3 % (34.1-44.9); Immature Granulocytes # (auto) 0.31 K/uL (0.00-0.02); Immature Granulocytes % (auto) 3.5 %; Lymphocytes # (auto) 1.89 K/uL (1.2-3.4); Lymphocytes % (auto) 21.4 %; Mean Corpuscular Hemoglobin 31.6 pg (25.0-34.0); Mean Corpuscular Volume 92.9 fL (80.0-100.0); Mean Platelet Volume 9.6 fL (9.4-12.3); Monocytes # (auto) 0.74 K/uL (0.24-0.82); Monocytes % (auto) 8.4 %; Neutrophils # (auto) 5.71 K/uL (1.4-6.5); Neutrophils % (auto) 64.4 %; Platelet Count 264 K/uL (130-400); RDW Coefficient of Variation 13.2 % (11.5-14.5); RDW Standard Deviation 44.3 fL (36.4-46.3); White Blood Count 8.85 K/ul (4.8-10.8)
[2022-03-03 08:17] LABS: BUN Creatinine Ratio 15.3 (10-20); Calcium 9.2 mg/dl (8.5-10.1); Creatinine Clr Calc Pharmacy 141.9 ml/min; Est GFR (African American) 132.1 ml/min; Potassium 3.7 mmol/L (3.5-5.1)
[2022-03-03] MEDS: DICLOFENAC SOD 1% GEL 100 GM TUBE EXT SCH (09:06)
[2022-03-03] MEDS: lamoTRIgine 100 MG TAB PO SCH (09:06)
[2022-03-03] MEDS: LURASIDONE HCL 40 MG TAB PO SCH (09:06)
[2022-03-03] MEDS: MULTI VIT W/MINERALS LIQUID 15 ML UDP NG SCH (09:06)
[2022-03-03] MEDS: POLYETHYLENE (MIRALAX) 17 GM PACK PO SCH (09:07)
[2022-03-03] MEDS: ACETAMINOPHEN 325 MG TAB PO PRN (09:13)
[2022-03-03] MEDS ORDERED: POTASSIUM CHLORIDE CRTAB 20 MEQ TABCR PO STA (09:42)
[2022-03-03] MEDS: AMOXICILLIN/CLAVULANATE 875 MG TAB PO SCH (10:07)
--- NOTE | 2022-03-03 12:19 | Discharge Summary ---
Date of Service March 03, 2022 Admission HPI Per Admitting Provider History obtained from ER provider and records. Limited history from patient secondary to intubated state. 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 Patient 40.5 g of Wellbutrin this afternoon. Patient left a suicidal note as per report. Patient became unresponsive while talking to police at home. Seizure activity witnessed by EMS. IV Versed administered at patient's home. Patient noted to be hypoxemic, O2 sats of 80s, upon arrival at the ER. Patient noted to be hypoglycemic as well. Patient subsequently intubated at the ER. Another G TC seizure witnessed at CAT scan. Cefepime, bicarb, Depakote administered at the ER. Medical History as above Surgical History/Family History /Personal/Social history : Could not be obtained secondary to intubated state Admission Exam Per Admitting Provider GENERAL: Sedated, morbidly obese, intubated SKIN: Normal color, warm HEENT: [place] palpebral conjunctivae, no ptosis, dry buccal mucosa NECK : Supple, short neck, no tenderness CHEST : decreased breath sounds, no tenderness HEART : Tachycardic, no obvious murmurs ABDOMEN: Some distention, nontender EXTREMITIES : No LE swelling/tenderness, no other conspicuous deformities noted NEUROLOGIC : Sedated, mydriatic pupils (left greater than the right), no facial asymmetry, gait and stance not assessed Principal Diagnosis Likely aspiration pneumonia Acute hypoxemic respiratory failure and new onset seizure activity secondary to intentional overdose of Wellbutrin Severe sepsis POA Likely toxic and metabolic encephalopathy POA, resolved Lactic acidosis at presentation, resolved Acute kidney injury, resolved Discharge Exam GENERAL: Alert and awake, on RA HEENT: No pallor, no icterus. Pupils equal, round and reactive to light. Oral mucosa dry. NECK: No JVD, no neck masses. HEART: S1 and S2 heard. tachycardia. No murmur, no gallop. RESPIRATORY SYSTEM: Normal AP diameter. No accessory muscle use. No wheezing, no crackles. ABDOMEN: Soft, bowel sounds present, no distention. CENTRAL NERVOUS SYSTEM: n/a EXTREMITIES: No edema, no erythema seen. Discharge Data Allergies Allergy/AdvReac Type Severity Reaction Status Date / Time pine nut Allergy Anaphylaxis Verified 02/28/22 12:50 Consultations 02/26/22 20:11 ED Decision to Admit Stat 02/26/22 21:14 Consult [facility] Stat 02/26/22 21:44 Consult Neurology Routine 02/26/22 22:51 Consult [facility] Routine 02/27/22 00:05 Consult Behavioral Health Liaison Routine 03/01/22 09:11 Consult Psychiatry Routine Ordered Studies 02/26/22 18:40 CT head/brain wo con Stat 02/27/22 00:11 CT chest diagnostic wo con Urgent Hospital Course (1) Acute hypoxemic respiratory failure: (2) Drug overdose: Plan 26-year-old with PMH of mood disorder, gender identity disorder who was found by police with AMS and became unresponsive shortly after talking to police. She is being managed for the following: Likely aspiration pneumonia secondary to new onset seizure activity secondary to intentional overdose of Wellbutrin: Pt not sure how much tablets them took. Acute hypoxemic respiratory failure Severe sepsis POA [SARS plus ARF plus hypoxemia plus encephalopathy] secondary to above Likely toxic and metabolic encephalopathy: AOx3 now Lactic acidosis: resolved. Patient was found by police and became unresponsive while talking to police at home. Seizure activity was witnessed by EMS and then another seizure activity witnessed at CAT scan. Patient was noted to be hypoxemic at presentation, initially on high flow oxygen, then intubated 02/26 at ED -->extubated 02/28 AM. Per record, patient had left suicidal note indicating she took approximately 14.5 g Wellbutrin at around 2 PM of 02/26. Admitting CT head: No acute findings. Admitting CXR with possible patchy bilateral airspace opacities suggestive of infectious process or aspiration. Nasal MRSA negative at admission. 02/27 CT chest: Near complete consolidation throughout the right upper lobe, spinal small pleural effusion with dependent consolidation. No pneumothorax. Follow-up CXR on 02/27 with near complete resolution of right upper lobe atelectasis. 02/27 EEG: no electrographic seizure or epileptogenic discharge. Urine toxicology at admission positive for amphetamine, ecstasy. Negative for salicylates and Tylenol. Follow final results. Admitting EKG with QTC of 456, 02/27 EKG with QTC of 525. 02/28 EKG w/ QTc 482 WBC nl, pt afebrile. c/w augmentin to complete the course. Extubated 02/28 AM, on RA, doing better. Neuro and psychiatry evaled. Per neuro, no indication to add antiepileptic. DC wellbutrin, psychiatry managing the psych meds. Per RN eating better, improving ambulation. Randy is out and able to urinate. Reports improvement in his left shoulder pain, c/w tylenol and voltaren gel. Being DC'd to psychiatric pond. c/w 1 to 1, can't leave ama . Monitor and replete electrolytes w/ goal of K >4 and Mg > 2 Suicide precautions Acute Kidney Injury: present at admission, resolved. Subclinical hypothyroidism, ruled out: elevated TSH w/ normal T4 at admission. Repeat tft wnl. Other chronic medical conditions: Mood disorder, gender identity disorder. Psych meds per psychiatry. Full code DVT prophylaxis: Heparin subcu Patient being discharged to psychiatric pond with following instruction at the point of discharge: You are being discharged to psychiatric pond from medical floor, following instructions to be carried out: Complete your antibiotic course for aspiration pneumonia as prescribed. BMP and magnesium draw daily for 2 to 3 days, maintain potassium greater than 4 and magnesium greater than 2, oral supplements can be used as needed. Your psychiatric medications will be managed by psychiatric doctor. Continue to use Tylenol for your general body pain, expect it to improve with ongoing ambulation and with time. You can use daily laxatives like MiraLAX and Colace until you start to move bowel and then make it as needed. After discharge from the psychiatric pond, you should follow-up with your PCP within a week time and maintain follow-up with your psychiatric provider as an outpatient. Take your medications as prescribed. Home Health Attestation I certify that this patient is under my care and that I, or a physicians assistant professor of marine biology working with me, had a face to-face encounter that meets the home health [id number] encounter requirements with this patient. The encounter with the patient was in whole, or in part, for the following medical condition, which is the primary reason for home health care (list medical condition): I certify that, based on my findings, the following services are medically necessary home health services: My clinical findings support the need for the above services because: Further, I certify that my clinical findings support that this patient is homebound (i.e. absences from home require considerable and taxing effort and are for medical reasons or tenriism services or infrequently or of short duration when for other reasons) because: Certification for Home Health Services: Based on the above findings, I certify that this patient is confined to the home and needs intermittent jail care, physical therapy and/or speech therapy or continues to need occupational therapy. The patient is under my care, and I have initiated the establishment of the plan of care. This patient will be followed by a physician who will periodically review the plan of care. Total Time Total Time Spent Total Time Spent (In Minutes): 45 Discharge Plan Discharge Items Patient Disposition: Transfer Behavioral Health Fac Reason For Visit: RESP FAILURE, OVERDOSE Discharge Diagnosis: Likely aspiration pneumonia Acute hypoxemic respiratory failure and new onset seizure activity secondary to intentional overdose of Wellbutrin Severe sepsis POA Likely toxic and metabolic encephalopathy POA, resolved Lactic acidosis at presentation, resolved Acute kidney injury, resolved Activity: Resume your previous activity Non-emergency contact: Primary Care Provider Call non-emergency contact if: you have any medication questions, your pain is worsening and your temperature is above 101 Follow-up/Referrals: PCP,NO [Primary Care Provider] - Diet: Regular Addtl Attending Provider Instructions: You are being discharged to psychiatric pond from medical floor, following instructions to be carried out: Complete your antibiotic course for aspiration pneumonia as prescribed. BMP and magnesium draw daily for 2 to 3 days, maintain potassium greater than 4 and magnesium greater than 2, oral supplements can be used as needed. Your psychiatric medications will be managed by psychiatric doctor. Continue to use Tylenol for your general body pain, expect it to improve with ongoing ambulation and with time. You can use daily laxatives like MiraLAX and Colace until you start to move bowel and then make it as needed. After discharge from the psychiatric pond, you should follow-up with your PCP within a week time and maintain follow-up with your psychiatric provider as an outpatient. Take your medications as prescribed. Pending Studies at Discharge: No Stand-Alone Forms: My [facility] Medications and DC Order Prescriptions: New amoxicillin-pot clavulanate 875-125 mg Tablet 1 tab PO Q12H 4 Days Qty: 8 0RF acetaminophen 325 mg Tablet 650 mg PO Q6H PRN (Reason: fever or pain) Qty: 30 0RF diclofenac sodium [Voltaren Arthritis Pain] 1 % Gel 4 g EXT TID Qty: 100 0RF Rx Instructions: Lt Shoulder lamotrigine 100 mg Tablet 250 mg PO QAM Qty: 100 0RF lamotrigine 100 mg Tablet 100 mg PO HS Qty: 30 0RF Latuda 40 mg Tablet 20 mg PO DAILY Qty: 15 0RF polyethylene glycol 3350 [Miralax] 17 gram Powder In Packet 17 g PO DAILY Qty: 14 0RF Continued testosterone 50 mg/5 gram (1 %) gel 0 mg topical UD Discontinued lamotrigine 150 mg tablet 150 mg PO DAILY lamotrigine 100 mg tablet 200 mg PO DAILY bupropion HCl 300 mg tablet extended release 24 hr 300 mg PO DAILY bupropion HCl 150 mg tablet extended release 24 hr 150 mg PO DAILY Latuda 20 mg tablet 20 mg PO DAILY Discharge Orders: Discharge Order (Routine); Ordered 03/03/22 Ordered By: Cindy Dewitt/Other Patient Handouts: Online Mental Health Support Grp, Depression: Tips to Help Yourself Admission Data Admit Date/Time: 02/26/22 21:23 Attending Provider: Cindy Perry Admit Provider: Ray Arcos Primary Care Provider: PCP,NO Other Providers: Ray Arcos ; Gilberto Mojica Adam M. ; Chris Meyers Erica K. ; Rufina Corona ; Niurka Hernandez
[2022-03-03 12:38] LABS: Amphetamine Urine, Confirm NEGATIVE ng/mL (<250); MDA negative; MDEA negative; MDMA (Ecstasy) Urine, Confirm negative; Methamphetamine, Ur Confirm NEGATIVE ng/mL (<250)
== END 2022-03-03 13:02 | DRG 917 ==
LOC: ED 18:28 → 1E 21:23 → 2W 03-01 20:33

== ENCOUNTER 2022-03-03 11:41 | Inpatient (IN) ==
[2022-03-03] MEDS ORDERED: BISMUTH SUBSALICYLATE LIQD 236 ML PO PRN (11:47)
[2022-03-03] MEDS ORDERED: SODIUM CHLORIDE 0.65% NA SOLN 45 ML (OCEAN) PRN (11:47)
[2022-03-03] MEDS ORDERED: ACETAMINOPHEN 325 MG TAB PO PRN (11:47)
[2022-03-03] MEDS ORDERED: ALUMINUM/MAGNESIUM SUSP 30 ML UDC PO PRN (11:47)
[2022-03-03] MEDS ORDERED: hydrOXYzine HCl 25 MG TAB PO PRN ×2 (11:47)
[2022-03-03] MEDS ORDERED: MAGNESIUM HYDROXIDE SUSP 30 ML UDC PO PRN (11:47)
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
[2022-03-03] MEDS ORDERED: DICLOFENAC SOD 1% GEL 100 GM TUBE EXT PRN (11:59)
[2022-03-03] MEDS ORDERED: LURASIDONE HCL 40 MG TAB PO SCH (17:15)
[2022-03-03] MEDS: AMOXICILLIN/CLAVULANATE 875 MG TAB PO SCH (18:02)
[2022-03-03] MEDS: lamoTRIgine 100 MG TAB PO SCH (21:10)
[2022-03-04 08:54] LABS: Chol HDL Ratio 3.4 (0-5)
[2022-03-04] MEDS ORDERED: NON-FORMULARY MEDICATION (Lamotrigine 150 mg tablet) PO SCH (09:00)
[2022-03-04] MEDS ORDERED: lamoTRIgine 100 MG TAB PO SCH ×2 (09:00→22:00)
[2022-03-04] MEDS ORDERED: lamoTRIgine 25 MG TAB PO SCH (09:00)
[2022-03-04] MEDS: AMOXICILLIN/CLAVULANATE 875 MG TAB PO SCH ×2 (09:39→10:19)
[2022-03-04] MEDS: POLYETHYLENE (MIRALAX) 17 GM PACK PO SCH (09:40)
[2022-03-04] MEDS: lamoTRIgine 100 MG TAB PO SCH ×2 (10:34→21:46)
--- NOTE | 2022-03-04 12:12 | Psychiatric Progress Note ---
Date of Service March 04, 2022 Impression / Recommendations Impression This is a 26 yo with a hx of bipolar disorder admitted medically following an intentional overdose suicide attempt. Acute risk of self-harm remains elevated and high given suicide attempt requiring ICU admission, intubation, major depressive symptoms, impulsivity, remained ambivalent about being alive after the attempt, has chronic intermittent SI, limited insight, and periods of high psychic distress. Given elevated risk of harm to self they meet criteria for inpatient psychiatric care for diagnostic clarification, safety/stabilization, development of additional coping skills, medication management and dis position/safety planning once medically stable. MNPR as transgender 03/04/22: improving (1) Bipolar 2 disorder: (2) Suicide attempt by drug overdose: (3) Seizure: (4) Aspiration pneumonia of both lower lobes: Plan 03/04/22: increase Latuda to 40 mg daily and monitor for akathisia. Patient has minimal swelling in left ankle and ongoing pain from sprain, will RICE and Ibuprofen 600 mg TID for pain. [facility] f/u for T, shoulder, ankle. 03/03/22: The patient was admitted to the [facility] ([facility] mental health unit) on q15 min checks (behavioral with suicide precautions) for safety. The patient will participate in group, recreational, and milieu therapies and will be offered additional individual and family sessions as clinically appropriate. Lamictal dosing confirmed with [facility] records. Shift Latuda to pm meal tomorrow for better absorption. Will not be restarted on Wellbutrin. Patient will check if roommate can bring non formulary testosterone. Continue course of antibiotics for aspiration. Inventory Assets Strengths: intelligent, has had positive response to medication Needs: improve coping skills, process severity of attempt Suicide Risk Level Suicide Risk Level: Moderate (q15 min suicide checks) Risk Factors Assessment Male: Yes (chemically) : Yes Do You Have Access To A Gun?: No Mental Health Diagnoses: Yes Substance Use Disorders: No Previous Attempt: Yes Family History of Suicide: No Previous Psychiatric Hospitalization: Yes Protective Factors Assessment : No Supportive Family: No Good Rapport with Provider: Yes Interval History Identifying Information GUS HARRELL is a 26-year-old genetic F, trans male prefers "Ziggy" with they/them pronouns, [employer]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 Chief Complaint "yeah this was impulsive, [place] the [place]." Review of Systems Sleep Information Total Hours of Sleep: 7 Meal Information Percent Meal Consumed - Breakfast: 80 Percent Meal Consumed - Dinner: 50 Subjective Subjective Patient was seen & assessed and interval progress reviewed with treatment team. 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 discussed hx with meds/akathisia. Understands that cannot resume WEllbutrin at this time and is "afraid of seizures". Patient's clothes had been cut off/soiled and were disposed of on transfer from the med floor. Is open here. Confirmed has been taking testosterone for 3-4 years and is pleased with care so far a [facility]. Therapist seems them twice a week (/Friday) and then once a month for "ketamine assisted therapy". Physical Exam Psychiatric Orientation: alert and oriented x 3 Apperance: appropriately groomed Eye Contact: good eye contact Motor Behavior: no abnormal motor movements Speech: normal rate/rhythm/volume of speech Affect: + depressed affect Mood: + depressed mood Thought Process: goal directed thought process Thought Content: reality based without delusions Suicidal Thoughts: denies suicidal thoughts Homicidal Thoughts: denies homicidal thoughts Hallucinations: no auditory hallucinations and no visual hallucinations Cognition: attention grossly intact and language grossly intact Estimated Intelligence: consistent with education level Insight: + limited insight Judgement: + limited judgement Vital Signs (Past 24 Hours) Last Vital Signs Temp 36.8 C 03/04/22 06:41 Pulse 86 03/04/22 06:41 Resp 16 03/04/22 06:41 BP 123/81 03/04/22 06:41 Results & Data ([facility]) Laboratory Results Laboratory Results - last 24 hr 03/04/22 08:12 Fasting Glucose 94 Triglycerides 135 Cholesterol 144 LDL Cholesterol, Calc 75 VLDL Cholesterol, Calc 27 HDL Cholesterol 42 Cholesterol/HDL Ratio 3.4 Current Inpatient Medications Current Inpatient Medications: Current Inpatient Medications Acetaminophen (Acetaminophen 325 Mg Tab) 650 mg PO Q4H PRN PRN Reason: Headache or Minor Fever Stop: 04/02/22 11:46 Last Admin: 03/04/22 09:38 Dose: 650 mg Al Hydrox/Mg Hydrox/Simethicone (Aluminum/Magnesium Susp 30 Ml Udc) 30 ml PO Q4H PRN PRN Reason: GI Upset Stop: 04/02/22 11:46 Amoxicillin/Clavulanate Potassium (Amoxicillin/Clavulanate 875 Mg Tab) 1 tab PO BIDM TONI Stop: 03/09/22 23:00 Last Admin: 03/04/22 10:19 Dose: 1 tab Bismuth Subsalicylate (Bismuth Subsalicylate Liqd 236 Ml) 15 ml PO PRN PRN PRN Reason: Loose Stool Stop: 04/02/22 11:46 Diclofenac Sodium (Diclofenac Sod 1% Gel 100 Gm Tube) 2 gm EXT QID PRN; Protocol PRN Reason: Pain Stop: 04/02/22 12:59 Hydroxyzine HCl (Hydroxyzine Hcl 25 Mg Tab) 50 mg PO HSZ PRN PRN Reason: Insomnia Stop: 04/02/22 11:46 Hydroxyzine HCl (Hydroxyzine Hcl 25 Mg Tab) 25 mg PO Q4H PRN PRN Reason: Anxiety Stop: 04/02/22 11:46 Lamotrigine (Lamotrigine 100 Mg Tab) 100 mg PO HS TONI Stop: 04/02/22 21:59 Last Admin: 03/03/22 21:10 Dose: 100 mg Lamotrigine (Lamotrigine 100 Mg Tab) 250 mg PO DAILY TOIN Stop: 04/03/22 09:59 Last Admin: 03/04/22 10:34 Dose: 250 mg Lurasidone HCl (Lurasidone Hcl 40 Mg Tab) 20 mg PO DAILYBD TONI Stop: 04/03/22 17:14 Magnesium Hydroxide (Magnesium Hydroxide Susp 30 Ml Udc) 30 ml PO DAILY PRN PRN Reason: Constipation Stop: 04/02/22 11:46 Polyethylene Glycol (Polyethylene (Miralax) 17 Gm Pack) 17 gm PO DAILY TONI Stop: 04/03/22 08:59 Last Admin: 03/04/22 09:40 Dose: 17 gm Sodium Chloride (Sodium Chloride 0.65% Na Soln 45 Ml ([place])) 1 - 2 sprays NA PRN PRN PRN Reason: Nasal Dryness/Congestion Stop: 04/02/22 11:46 Mental Health & Subst Abuse Tx Therapist Name of Therapist: Chaparro Cervantes Date of Therapist Appointment: 03/08/22
[2022-03-04] MEDS: IBUPROFEN 600 MG TAB PO SCH ×2 (13:43→21:45)
[2022-03-04] MEDS ORDERED: LURASIDONE HCL 40 MG TAB PO SCH (17:15)
[2022-03-04] MEDS: LURASIDONE HCL 40 MG TAB PO SCH (17:29)
[2022-03-05] MEDS: IBUPROFEN 600 MG TAB PO SCH ×3 (09:46→21:08)
[2022-03-05] MEDS: AMOXICILLIN/CLAVULANATE 875 MG TAB PO SCH ×2 (09:46→17:36)
[2022-03-05] MEDS: POLYETHYLENE (MIRALAX) 17 GM PACK PO SCH (10:01)
[2022-03-05] MEDS: lamoTRIgine 100 MG TAB PO SCH ×2 (10:31→21:08)
--- NOTE | 2022-03-05 15:08 | Psychiatric Progress Note ---
Date of Service March 05, 2022 Impression / Recommendations Impression This is a 26 yo with a hx of bipolar disorder admitted medically following an intentional overdose suicide attempt. Acute risk of self-harm remains elevated and high given suicide attempt requiring ICU admission, intubation, major depressive symptoms, impulsivity, remained ambivalent about being alive after the attempt, has chronic intermittent SI, limited insight, and periods of high psychic distress. MNPR as transgender 03/05/22: improving, more engaged with family (1) Bipolar 2 disorder: (2) Suicide attempt by drug overdose: (3) Seizure: (4) Aspiration pneumonia of both lower lobes: Plan 03/05/22: continue current meds and tx plan. 03/04/22: increase Latuda to 40 mg daily and monitor for akathisia. Patient has minimal swelling in left ankle and ongoing pain from sprain, will RICE and Ibuprofen 600 mg TID for pain. [facility] f/u for T, shoulder, ankle. 03/03/22: The patient was admitted to the [facility] ([facility] mental health unit) on q15 min checks (behavioral with suicide precautions) for safety. The patient will participate in group, recreational, and milieu therapies and will be offered additional individual and family sessions as clinically appropriate. Lamictal dosing confirmed with [place] records. Shift Latuda to pm meal tomorrow for better absorption. Will not be restarted on Wellbutrin. Patient will check if roommate can bring non formulary testosterone. Continue course of antibiotics for aspiration. Inventory Assets Strengths: intelligent, has had positive response to medication Needs: improve coping skills, process severity of attempt Suicide Risk Level Suicide Risk Level: Moderate (q15 min suicide checks) Risk Factors Assessment Male: Yes (chemically) : Yes Do You Have Access To A Gun?: No Mental Health Diagnoses: Yes Substance Use Disorders: No Previous Attempt: Yes Family History of Suicide: No Previous Psychiatric Hospitalization: Yes Protective Factors Assessment : No Supportive Family: No Good Rapport with Provider: Yes Interval History Identifying Information GUS HARRELL is a 26-year-old genetic F, trans male prefers "Ziggy" with they/them pronouns, [employer]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 Chief Complaint "I feel like it may be a long shot but I'd like to be seeing my therapist later this week." Review of Systems Sleep Information Total Hours of Sleep: 6.75 Meal Information Percent Meal Consumed - Breakfast: 100 Percent Meal Consumed - Lunch: 75 Percent Meal Consumed - Dinner: 100 Subjective Subjective Patient was seen & assessed and interval progress reviewed with nursing and social work. Still having some left ankle swelling, it appears decreased since last contact, states pain is well controlled with ibuprofen and appears to be ambulating better. Reviewed labs/EEG/X ray results with father by phone as well as what to expect around discharge/aftercare. Ziggy is tolerating the increase in Latuda quite well. Physical Exam Psychiatric Orientation: alert and oriented x 3 Apperance: appropriately groomed Eye Contact: good eye contact Motor Behavior: no abnormal motor movements Speech: normal rate/rhythm/volume of speech Affect: euthymic affect Mood: no depressed mood Thought Process: goal directed thought process Thought Content: reality based without delusions Suicidal Thoughts: denies suicidal thoughts Homicidal Thoughts: denies homicidal thoughts Hallucinations: no auditory hallucinations and no visual hallucinations Cognition: attention grossly intact and language grossly intact Estimated Intelligence: consistent with education level Insight: + limited insight Judgement: + limited judgement Vital Signs (Past 24 Hours) Last Vital Signs Temp 37.2 C 03/05/22 06:46 Pulse 81 03/05/22 06:47 Resp 16 03/05/22 06:46 BP 125/84 03/05/22 06:47 Results & Data ([facility]) Current Inpatient Medications Current Inpatient Medications: Current Inpatient Medications Acetaminophen (Acetaminophen 325 Mg Tab) 650 mg PO Q4H PRN PRN Reason: Headache or Minor Fever Stop: 04/02/22 11:46 Last Admin: 03/04/22 09:38 Dose: 650 mg Al Hydrox/Mg Hydrox/Simethicone (Aluminum/Magnesium Susp 30 Ml Udc) 30 ml PO Q4H PRN PRN Reason: GI Upset Stop: 04/02/22 11:46 Amoxicillin/Clavulanate Potassium (Amoxicillin/Clavulanate 875 Mg Tab) 1 tab PO BIDM TONI Stop: 03/09/22 23:00 Last Admin: 03/05/22 09:46 Dose: 1 tab Bismuth Subsalicylate (Bismuth Subsalicylate Liqd 236 Ml) 15 ml PO PRN PRN PRN Reason: Loose Stool Stop: 04/02/22 11:46 Diclofenac Sodium (Diclofenac Sod 1% Gel 100 Gm Tube) 2 gm EXT QID PRN; Protocol PRN Reason: Pain Stop: 04/02/22 12:59 Hydroxyzine HCl (Hydroxyzine Hcl 25 Mg Tab) 50 mg PO HSZ PRN PRN Reason: Insomnia Stop: 04/02/22 11:46 Hydroxyzine HCl (Hydroxyzine Hcl 25 Mg Tab) 25 mg PO Q4H PRN PRN Reason: Anxiety Stop: 04/02/22 11:46 Ibuprofen (Ibuprofen 600 Mg Tab) 600 mg PO TID TONI Stop: 04/03/22 13:59 Last Admin: 03/05/22 13:57 Dose: 600 mg Lamotrigine (Lamotrigine 100 Mg Tab) 100 mg PO HS TONI Stop: 04/02/22 21:59 Last Admin: 03/04/22 21:46 Dose: 100 mg Lamotrigine (Lamotrigine 100 Mg Tab) 250 mg PO DAILY TONI Stop: 04/03/22 09:59 Last Admin: 03/05/22 10:31 Dose: 250 mg Lurasidone HCl (Lurasidone Hcl 40 Mg Tab) 40 mg PO DAILYBD TONI Stop: 04/03/22 17:14 Last Admin: 03/04/22 17:29 Dose: 40 mg Magnesium Hydroxide (Magnesium Hydroxide Susp 30 Ml Udc) 30 ml PO DAILY PRN PRN Reason: Constipation Stop: 04/02/22 11:46 Polyethylene Glycol (Polyethylene (Miralax) 17 Gm Pack) 17 gm PO DAILY TONI Stop: 04/03/22 08:59 Last Admin: 03/05/22 10:01 Dose: 17 gm Sodium Chloride (Sodium Chloride 0.65% Na Soln 45 Ml ([place])) 1 - 2 sprays NA PRN PRN PRN Reason: Nasal Dryness/Congestion Stop: 04/02/22 11:46 Mental Health & Subst Abuse Tx Therapist Name of Therapist: Chaparro Cervantes Date of Therapist Appointment: 03/08/22
[2022-03-05] MEDS: LURASIDONE HCL 40 MG TAB PO SCH (17:36)
[2022-03-06] MEDS: AMOXICILLIN/CLAVULANATE 875 MG TAB PO SCH ×2 (09:10→17:45)
[2022-03-06] MEDS: lamoTRIgine 100 MG TAB PO SCH ×2 (09:10→21:16)
[2022-03-06] MEDS: IBUPROFEN 600 MG TAB PO SCH ×3 (09:10→21:16)
[2022-03-06] MEDS: POLYETHYLENE (MIRALAX) 17 GM PACK PO SCH (09:17)
--- NOTE | 2022-03-06 13:34 | Psychiatric Progress Note ---
Date of Service March 06, 2022 Impression / Recommendations Impression This is a 26 yo with a hx of bipolar disorder admitted medically following an intentional overdose suicide attempt. Acute risk of self-harm remains elevated and high given suicide attempt requiring ICU admission, intubation, major depressive symptoms, impulsivity, remained ambivalent about being alive after the attempt, has chronic intermittent SI, limited insight, and periods of high psychic distress. MNPR as transgender 03/06/22: future focussed (1) Bipolar 2 disorder: (2) Suicide attempt by drug overdose: (3) Seizure: (4) Aspiration pneumonia of both lower lobes: Plan 03/06/22: needs support person meeting and finalize safety plan, recommend lock box for meds to slow access. 03/05/22: continue current meds and tx plan. 03/04/22: increase Latuda to 40 mg daily and monitor for akathisia. Patient has minimal swelling in left ankle and ongoing pain from sprain, will RICE and Ibuprofen 600 mg TID for pain. [facility] f/u for T, shoulder, ankle. 03/03/22: The patient was admitted to the [facility] ([facility] mental health unit) on q15 min checks (behavioral with suicide precautions) for safety. The patient will participate in group, recreational, and milieu therapies and will be offered additional individual and family sessions as clinically appropriate. Lamictal dosing confirmed with [place] records. Shift Latuda to pm meal tomorrow for better absorption. Will not be restarted on Wellbutrin. Patient will check if roommate can bring non formulary testosterone. Continue course of antibiotics for aspiration. Inventory Assets Strengths: intelligent, has had positive response to medication Needs: improve coping skills, process severity of attempt Suicide Risk Level Suicide Risk Level: Moderate (q15 min suicide checks) Risk Factors Assessment Male: Yes (chemically) : Yes Do You Have Access To A Gun?: No Mental Health Diagnoses: Yes Substance Use Disorders: No Previous Attempt: Yes Family History of Suicide: No Previous Psychiatric Hospitalization: Yes Protective Factors Assessment : No Supportive Family: No Good Rapport with Provider: Yes Interval History Identifying Information GUS HARRELL is a 26-year-old genetic F, trans male prefers "Ziggy" with they/them pronouns, [employer]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 Chief Complaint "I'm feeling good". Review of Systems Sleep Information Total Hours of Sleep: 6.5 Meal Information Percent Meal Consumed - Breakfast: 100 Percent Meal Consumed - Lunch: 75 Percent Meal Consumed - Dinner: 100 Subjective Subjective Patient was seen & assessed and interval progress reviewed with treatment team. still wants family meeting with friend but communicating regularly with family. rates mood as 8. decrease pain in ankle. Physical Exam Psychiatric Orientation: alert and oriented x 3 Apperance: appropriately groomed Eye Contact: good eye contact Motor Behavior: no abnormal motor movements Speech: normal rate/rhythm/volume of speech Affect: euthymic affect Mood: no depressed mood Thought Process: goal directed thought process Thought Content: reality based without delusions Suicidal Thoughts: denies suicidal thoughts Homicidal Thoughts: denies homicidal thoughts Hallucinations: no auditory hallucinations and no visual hallucinations Cognition: attention grossly intact and language grossly intact Vital Signs (Past 24 Hours) Last Vital Signs Temp 36.9 C 03/06/22 06:43 Pulse 74 03/06/22 06:44 Resp 16 03/06/22 06:43 BP 129/87 03/06/22 06:44 Results & Data ([facility]) Current Inpatient Medications Current Inpatient Medications: Current Inpatient Medications Acetaminophen (Acetaminophen 325 Mg Tab) 650 mg PO Q4H PRN PRN Reason: Headache or Minor Fever Stop: 04/02/22 11:46 Last Admin: 03/04/22 09:38 Dose: 650 mg Al Hydrox/Mg Hydrox/Simethicone (Aluminum/Magnesium Susp 30 Ml Udc) 30 ml PO Q4H PRN PRN Reason: GI Upset Stop: 04/02/22 11:46 Amoxicillin/Clavulanate Potassium (Amoxicillin/Clavulanate 875 Mg Tab) 1 tab PO BIDM TONI Stop: 03/09/22 23:00 Last Admin: 03/06/22 09:10 Dose: 1 tab Bismuth Subsalicylate (Bismuth Subsalicylate Liqd 236 Ml) 15 ml PO PRN PRN PRN Reason: Loose Stool Stop: 04/02/22 11:46 Diclofenac Sodium (Diclofenac Sod 1% Gel 100 Gm Tube) 2 gm EXT QID PRN; Protocol PRN Reason: Pain Stop: 04/02/22 12:59 Hydroxyzine HCl (Hydroxyzine Hcl 25 Mg Tab) 50 mg PO HSZ PRN PRN Reason: Insomnia Stop: 04/02/22 11:46 Hydroxyzine HCl (Hydroxyzine Hcl 25 Mg Tab) 25 mg PO Q4H PRN PRN Reason: Anxiety Stop: 04/02/22 11:46 Ibuprofen (Ibuprofen 600 Mg Tab) 600 mg PO TID TONI Stop: 04/03/22 13:59 Last Admin: 03/06/22 09:10 Dose: 600 mg Lamotrigine (Lamotrigine 100 Mg Tab) 100 mg PO HS TONI Stop: 04/02/22 21:59 Last Admin: 03/05/22 21:08 Dose: 100 mg Lamotrigine (Lamotrigine 100 Mg Tab) 250 mg PO DAILY TONI Stop: 04/03/22 09:59 Last Admin: 03/06/22 09:10 Dose: 250 mg Lurasidone HCl (Lurasidone Hcl 40 Mg Tab) 40 mg PO DAILYBD TONI Stop: 04/03/22 17:14 Last Admin: 03/05/22 17:36 Dose: 40 mg Magnesium Hydroxide (Magnesium Hydroxide Susp 30 Ml Udc) 30 ml PO DAILY PRN PRN Reason: Constipation Stop: 04/02/22 11:46 Polyethylene Glycol (Polyethylene (Miralax) 17 Gm Pack) 17 gm PO DAILY TONI Stop: 04/03/22 08:59 Last Admin: 03/06/22 09:17 Dose: 17 gm Sodium Chloride (Sodium Chloride 0.65% Na Soln 45 Ml ([place])) 1 - 2 sprays NA PRN PRN PRN Reason: Nasal Dryness/Congestion Stop: 04/02/22 11:46 Mental Health & Subst Abuse Tx Psychiatrist Name of Psychiatrist: Jose F Ambriz Psychiatrist's Date of Appointment with Psychiatrist: 03/08/22 Time of Appointment with Psychiatrist: 1pm Psychiatric Appointment Comment: [address] [facility] [id number] Therapist Name of Therapist: Chaparro Cervantes Date of Therapist Appointment: 03/08/22 Post Discharge Appointments Primary Care Physician Name Of Family Doctor: [facility] - Dr. Carrizales Primary [facility] Time of Appointment with PCP: Call to schedule a follow up appointment for March. Provider Appointment Comment: [facility]
[2022-03-06] MEDS: LURASIDONE HCL 40 MG TAB PO SCH (17:45)
[2022-03-07 06:49] VITALS: BP 124/84; TEMP 98.4
[2022-03-07] MEDS: AMOXICILLIN/CLAVULANATE 875 MG TAB PO SCH (09:13)
[2022-03-07] MEDS: IBUPROFEN 600 MG TAB PO SCH (09:13)
[2022-03-07] MEDS: lamoTRIgine 100 MG TAB PO SCH (09:14)
--- NOTE | 2022-03-07 09:23 | Discharge Summary ---
Date of Service March 07, 2022 History of Present Illness Ziggy confirmed history as documented by Dr. Day in initial psychiatric consultation dated 03/01/22: Ziggy was admitted medically following suicide attempt via ingestion of estimated 14.5 g of Wellbutrin XL after leaving a suicide note detailing this amount and then called 911 who found patient minimally responsive and required intubation and ICU admission on arrival to the hospial. Today they are 24 hours since extubation and fully oriented and able to communicate. They cannot recall any events leading to the suicide attempt except noting that they remember sitting on the bed and holding pills but not taking them. They cannot recall if they were in their graduate school classes the day before or any specific events leading up to the ingestion nor any specific triggers. They note a long history of depression as well as ongoing general stress denies any recent changes in this noting "but I am not sure why now". They denied current thoughts of suicide but feel ambivalent about surviving the attempt noting they feel "neutral" about this. They were not aware that they had written a suicide note as referenced by the police on bringing them to the hospital but notes that they are surprised that they "called the police". They declined to sign any KAILA's for family but give the name of a friend who can be contacted. They have been taking Lamictal since 2017 with good effect, Wellbutrin since 2019 with good effect, and more started on Latuda this fall. Ziggy has been cooperative on the medical floor, was unable to be transferred yesterday due to difficulty voiding after removal of Padilla cath, now resolved. Is c/o of left shoulder pain with limited ROM, patient had a negative X ray and medical clearance was reviewed with Dr. Perry again today. Sleep was OK. Did have menses for 1st time in 4 years as testosterone gel in non-formulary. Physical Exam Psychiatric See admission H&P and DOD assessment. Vital Signs (Past 24 Hours) Last Vital Signs Temp 36.9 C 03/07/22 06:48 Pulse 87 03/07/22 06:49 Resp 16 03/07/22 06:48 BP 124/84 03/07/22 06:49 Principal Diagnosis bipolar disorder Psychiatric Data See daily stay summary. In short, safety was maintained and the patient was cooperative with care. Medication changes included titration of Latuda to 40 mg daily and they tolerated this well. They have a history of akathisia on atypicals, possible may have been due to the combination of Wellbutrin and atypical in past. The patient reports receiving ketamine lozenges monthly during a supervised telehealth visit with their therapist under a [place] prescriber. Reviewed that as I am not a ketamine prescriber, I can't necessarily recommend with their current regimen/recent seizure but their outpatient provider will receive our transition of care summary. Reviewed that I am not aware of any local pharmacies dispensing ketamine troches other than a specialty provider in [place] so again check with prescriber if they are concerned about risk of lapse in care though sounds like will be visiting home state soon. A family session was held with a local friend and safety plan was completed prior to discharge. Day of Discharge Assessment Today the patient voices readiness for discharge. They note improvement in mood and deny thoughts to harm self or others. Thoughts remain organized and they are improved from admission. There is no evidence of psychosis. They agree to take mediations as prescribed and keep follow-up appointments. They are stable for discharge to outpatient level of care. Transition of Care Transition Of Care Record: was reviewed with the patient Advance Directives Advance Directives Information Provided: Yes Advance Directives: No Mental Health Advance Directive: No Advance Directives on File: No Living Will: No Power of [employer] Specialist: No Advance Directives Reason:: Declines as Mental Health Visit. Suicide Risk Level Suicide Risk Level Comments: Suicide risk at discharge is deemed low as the patient is no longer requiring 24-hr monitoring, has a safety plan, and is free of suicidal ideation at discharge. Risk Factors Assessment Male: Yes (chemically) : Yes Do You Have Access To A Gun?: No Mental Health Diagnoses: Yes Substance Use Disorders: No Previous Attempt: Yes Family History of Suicide: No Previous Psychiatric Hospitalization: Yes Protective Factors Assessment : No Supportive Family: No Good Rapport with Provider: Yes Tobacco Cessation at Discharge Tobacco Cessation Medication Prescribed at Discharge: Not Applicable/Non-Smoker Total Time Total Time Spent: Greater Than 30 Minutes Total Time Includes: Examination of the patient, Discharge Planning and Medication Reconciliation Discharge Data Lab Results 03/04/22 08:12 Fasting Glucose 94 Triglycerides 135 Cholesterol 144 LDL Cholesterol, Calc 75 VLDL Cholesterol, Calc 27 HDL Cholesterol 42 Cholesterol/HDL Ratio 3.4 Hospital Course (1) Bipolar 2 disorder: (2) Suicide attempt by drug overdose: (3) Seizure: (4) Aspiration pneumonia of both lower lobes: Plan 03/06/22: needs support person meeting and finalize safety plan, recommend lock box for meds to slow access. 03/05/22: continue current meds and tx plan. 03/04/22: increase Latuda to 40 mg daily and monitor for akathisia. Patient has minimal swelling in left ankle and ongoing pain from sprain, will RICE and Ibuprofen 600 mg TID for pain. [facility] f[facility]u for [facility], shoulder, ankle. 03/03/22: The patient was admitted to the [facility] ([facility]) on q15 min checks (behavioral with suicide precautions) for safety. The patient will participate in group, recreational, and milieu therapies and will be offered additional individual and family sessions as clinically appropriate. Lamictal dosing confirmed with [place] records. Shift Latuda to pm meal tomorrow for better absorption. Will not be restarted on Wellbutrin. Patient will check if roommate can bring non formulary testosterone. Continue course of antibiotics for aspiration. Mental Health & Subst Abuse Tx Psychiatrist Name of Psychiatrist: [facility] - Zayra Ambriz Psychiatrist's Date of Appointment with Psychiatrist: 03/08/22 Time of Appointment with Psychiatrist: 1pm Psychiatric Appointment Comment: [address] [facility] [address] Therapist Name of Therapist: Chaparro Cervantes Therapist's Date of Therapist Appointment: 03/08/22 Therapy Appointment Comment: Please follow up per your established schedule. Post Discharge Appointments Primary Care Physician Name Of Family Doctor: [facility] - Dr. Carrizales Primary Care Time of Appointment with PCP: Follow up as needed. Provider Appointment Comment: [facility] Smoking Cessation Counseling Tobacco Cessation Medication Prescribed at Discharge: Not Applicable/Non-Smoker Other #1: Name of Aftercare Appointment: [facility] - Jo Adamson Phone Number of Aftercare Appointment: [phone] Date of Aftercare Appointment: 03/08/22 Time of Aftercare Appointment: 1:00 PM Aftercare Appointment Comment: Check [facility] email to join meeting virtually. Discharge Plan Discharge Items Patient Disposition: Home - Self-Care Reason For Visit: MDD Discharge Diagnosis: bipolar disorder Activity: Resume your previous activity Non-emergency contact: Primary Care Provider, Psychiatrist and Therapist Call non-emergency contact if: you have any medication questions and your symptoms worsen Follow-up/Referrals: PCP,NO [Primary Care Provider] - Diet: Regular Addtl Attending Provider Instructions: SPECIAL CARE INSTRUCTIONS: 1. Follow through with your scheduled aftercare appointments. If unable to keep an appointment, please call to reschedule. 2. Take your medication only as prescribed. Medication should not be changed or stopped without the approval of your doctor. In the event of worsening symptoms or concerns about side effects, contact your doctor immediately. 3. Utilize new healthy coping skills, anger management skills, and stress management skills learned during your hospitalization. Journal feelings and process them with a support person. Identify stressors or situations that may result in relapse, deterioration or inappropriate behaviors and develop a plan to deal with those issues. 4. If your coping skills are ineffective and you are in crisis, contact your outpatient providers for direction. If unable to reach your providers, please call the [facility] CRISIS LINE AT , go to the [facility] walk-in center at [address] [place] [address] [facility] or go to the closest Emergency Room. 5. Avoid alcohol and un-prescribed drugs. 6. You have been provided with the Mental Health Advance Directives Pamphlet for your review. 7. Your condition is stable for discharge to outpatient level of care, but recovery is an ongoing process. Ifthoughts to harm yourself or others return, follow the safety plan developed during your stay. Planning for a safe return home includes securing weapons. Our treatment team recommends weaponsbe removed from the home until your outpatient provider reassesses your progress. In rare cases where the items themselvescannot be removed, guns and ammunitionshould be secured separatelyand keys stored by a reliable personoutside of the home. If you were admitted on an involuntary commitment, the police or other legal authorities may be involved in this process. AFTERCARE APPOINTMENTS: * Please call your insurance company prior to your scheduled appointment to confirm your aftercare providers are covered. Take your insurance information to your appointments. WHO TO CALL AND WHEN: Medical Emergencies: For questions or emergencies related to your hospital stay, please contact the Inpatient Behavioral Health Unit at [phone]. A social worker psychiatric is on-call 21/10 for the Behavioral Health Unit for emergencies At any time you feel your situation is an emergency, you may also call 911 immediately. Pending Studies at Discharge: No Stand-Alone Forms: [facility], Smoking Cessation Medications and DC Order Prescriptions: New Latuda 40 mg Tablet 40 mg PO DAILYBD Qty: 30 0RF Continued amoxicillin-pot clavulanate 875-125 mg Tablet 1 tab PO Q12H 4 Days Qty: 3 0RF lamotrigine 100 mg tablet 100 mg PO BID lamotrigine 150 mg tablet 150 mg PO DAILY testosterone 50 mg/5 gram (1 %) gel See Rx Instructions .ROUTE .COMPLEX Rx Instructions: take as directed Discontinued Latuda 40 mg Tablet 20 mg PO DAILY Qty: 15 0RF Discharge Orders: Discharge Order (Routine); Ordered 03/07/22 Ordered By: Rufina Corona Admission Data Admit Date/Time: 03/03/22 13:12 Attending Provider: Rufina Corona Admit Provider: Rufina Corona Primary Care Provider: PCP,NO Other Interventions: Discharge Summary Assessment (RN) Last Done: 03/07/22 09:47 PSY Interdisciplinary Discharge Planning Last Done: 03/07/22 09:51 Coding Level of Care Code 39823 D/C day mgmt > 30 min Diagnoses Bipolar 2 disorder F31.81 Suicide attempt by drug overdose T50.902A Seizure R56.9 Aspiration pneumonia of both lower lobes J69.0
[2022-03-07] MEDS: POLYETHYLENE (MIRALAX) 17 GM PACK PO SCH (09:24)
[2022-03-07 09:48] VITALS: PULSE 91
== END 2022-03-07 10:50 | disposition home or self-care (01) | DRG 917 ==
LOC: 3S 13:12